=== PATIENT | female | born 1935 | race African-American/Black ===

== ENCOUNTER 2018-01-11 13:49 | Inpatient (IN) | payer OTHER, MEDICARE ==
[2018-01-11] VITALS (7 sets, daily range): BP systolic 123–157; BP diastolic 65–98; PULSE 83–100; RESP 18–20; TEMP 98.5–99.1; O2SAT 97–100
[~2018-01-11] VITALS: Ht 152.4 cm; Wt 74.9 kg
[~2018-01-11 13:49] MED LIST: CARV12.5 PO; DIAZ10 PO; FURO1TAB93 PO; LISI10TA PO; MIRA33502 PO; STOO100C PO
[2018-01-11] MEDS ORDERED: PRAV20TA2 PO (14:27)
[2018-01-11] MEDS ORDERED: CLON0.1T PO (14:27)
[2018-01-11] MEDS ORDERED: CARV12.52 PO (14:27)
[2018-01-11] MEDS ORDERED: FERR325T18 PO (14:27)
[2018-01-11] MEDS ORDERED: LISI40TA PO (14:27)
[2018-01-11] MEDS ORDERED: FURO40TA PO (14:27)
[2018-01-11] MEDS ORDERED: AMLO10TA2 PO (14:27)
[2018-01-11] MEDS ORDERED: SODIUM CHLORIDE 0.9% FLUSH 10 ML FLUSH IV FLUSH PRN ×2 (14:45→18:45)
[2018-01-11] MEDS ORDERED: SODIUM CHLORID 0.9% 500 ML INJ 500 ML IV ONE (14:45)
[2018-01-11] MEDS ORDERED: PANTOPRAZOLE INJ 80 MG in SODIUM CHLORIDE 0.9% INJ 35 ML IV ONE (14:45)
[2018-01-11 15:21] LABS: AUTOMATED NEUTROPHIL # 14.9 TH/MM3 (1.8-7.7); BASOPHIL % 0.2 % (0.0-2.0); EOSINOPHIL # 0.1 TH/MM3 (0-0.4); EOSINOPHIL % 0.4 % (0.0-4.0); HEMATOCRIT 24.9 % (35.0-46.0); HEMOGLOBIN 8.2 GM/DL (11.6-15.3); LYMPH % 12.4 % (9.0-44.0); LYMPHOCYTE # 2.3 TH/MM3 (1.0-4.8); MEAN CELL VOLUME 74.4 FL (80.0-100.0); MEAN CORPUSCULAR HEMOGLOBIN 24.6 PG (27.0-34.0); MEAN CORPUSCULAR HGB CONC 33.1 % (32.0-36.0); MEAN PLATELET VOLUME 8.1 FL (7.0-11.0); MONOCYTE # 1.1 TH/MM3 (0-0.9); PLATELET COUNT 411 TH/MM3 (150-450); RED BLOOD COUNT 3.34 MIL/MM3 (4.00-5.30); RED CELL DISTRIBUTION WIDTH 18.9 % (11.6-17.2); WHITE BLOOD COUNT 18.4 TH/MM3 (4.0-11.0)
[2018-01-11 15:33] LABS: ALBUMIN 2.1 GM/DL (3.4-5.0); AST (GOT) 18 U/L (15-37); BICARBONATE 18.5 MEQ/L (21.0-32.0); BLOOD UREA NITROGEN 115 MG/DL (7-18); CALCIUM 8.2 MG/DL (8.5-10.1); CHLORIDE 118 MEQ/L (98-107); CREATININE 4.24 MG/DL (0.50-1.00); GLOMERULAR FILTRATION RATE 10 ML/MIN (>89); GLUCOSE,RANDOM 116 MG/DL (74-106); SODIUM (NA) 149 MEQ/L (136-145)
[2018-01-11 15:36] LABS: ALKALINE PHOSPHATASE 75 U/L (45-117); ALT (GPT) 14 U/L (10-53); TOTAL BILIRUBIN ADULT 0.2 MG/DL (0.2-1.0); TOTAL PROTEIN 7.6 GM/DL (6.4-8.2)
[2018-01-11] MEDS ORDERED: SODIUM CHLOR 0.9% 1000 ML INJ 1,000 ML IV ONE (15:45)
[2018-01-11] MEDS: PANTOPRAZOLE INJ 80 MG in SODIUM CHLORIDE 0.9% INJ 100 ML IV SCH (15:58)
[2018-01-11 16:44] LABS: HELMET CELLS OCC (NORMAL); TARGET CELLS 1+ (NORMAL)
--- NOTE | 2018-01-11 16:44 | RADRPT ---
EXAM DATE/TIME: 01/11/2018 16:17 [facility] COMPARISON: No previous studies available for comparison. INDICATIONS : Shortness of breath and fever. MEDICAL HISTORY : None. SURGICAL HISTORY : None. ENCOUNTER: Initial ACUITY: 1 day PAIN SCORE: 0/10 LOCATION: Bilateral chest FINDINGS: No significant focal pleural or parenteral opacities. Cardiac silhouette is marginal in size. Likely tortuous thoracic aorta. Bony thorax is intact. CONCLUSION: 1. No acute cardiopulmonary disease. Shawn Gomez MD on January 11, 2018 at 16:41 Board Certified Radiologist. This report was verified electronically.
[2018-01-11 16:56] LABS: INTERNATIONAL NORMALIZED RATIO 1.1 RATIO
--- NOTE | 2018-01-11 17:35 | RADRPT ---
EXAM DATE/TIME: 01/11/2018 17:08 [facility] COMPARISON: No previous studies available for comparison. INDICATIONS : Abdominal pain, black stool and decreases appetite. ORAL CONTRAST: No oral contrast ingested. RADIATION DOSE: 11.03 CTDIvol (mGy) MEDICAL HISTORY : Cardiovascular disease. Congestive heart failure. Hypertension.Renal failure. SURGICAL HISTORY : None. ENCOUNTER: Initial ACUITY: 1 day PAIN SCALE: 6/10 LOCATION: TECHNIQUE: Volumetric scanning of the abdomen and pelvis was performed. Using automated exposure control and ad justment of the mA and/or kV according to patient size, radiation dose was kept as low as reasonably achievable to obtain optimal diagnostic quality images. DICOM format image data is available electro nically for review and comparison. FINDINGS: LOWER LUNGS: The visualized lower lungs are clear. LIVER: Homogeneous density without lesion. There is no dilation of the biliary tree. Gallbladder appears co ntracted and likely full of stones. SPLEEN: Normal size without lesion. PANCREAS: There is a large 8.4 x 6.3 cm septated cystic mass in the pancreatic head similar to remote prior CT report. There is no significant pancreatic tail atrophy or ductal dilatation. KIDNEYS: Severe bilateral hydronephrosis and hydroureter extending to the UV junction without definitive etiol ogy. No radiopaque renal calculi. 4.7 x 3.7 cm cyst in the posterior mid right kidney. Small subcenti meter cyst in the inferior pole of the left kidney. ADRENAL GLANDS: Within normal limits. VASCULAR: There is no aortic aneurysm. BOWEL/MESENTERY: Single loop of slightly prominent air-filled but the distal jejunum. Bowel loops are otherwise unrema rkable. Mild colonic diverticulosis. There is no free intraperitoneal air or fluid. ABDOMINAL WALL: Within normal limits. RETROPERITONEUM: There is no lymphadenopathy. BLADDER: Diffuse bladder wall thickening with moderate distention. REPRODUCTIVE: Within normal limits. INGUINAL: There is no lymphadenopathy or hernia. MUSCULOSKELETAL: Within normal limits for patient age. CONCLUSION: 1. Severe bilateral hydroureteronephrosis extending to the UV junction with moderately distended blad corie demonstrating moderate diffuse bladder wall thickening. Differential considerations include neuro genic bladder versus bladder outlet obstruction. 2. Large 8.4 x 6.3 cm septated cystic pancreatic head mass similar to remote prior CT examination rep orts. This has apparently been previously biopsied and evaluated. 3. Single slightly prominent air-filled loop of distal jejunum. This finding is nonspecific and may r eflect focal adynamic ileus. Shawn Gomez MD on January 11, 2018 at 17:25 Board Certified Radiologist. This report was verified electronically.
--- NOTE | 2018-01-11 18:18 | PD ---
HPI Chief Complaint: GI Complaint Time Seen by Provider: 14:14 Travel History International Travel<30 days: No Contact w/Intl Traveler<30days: No Traveled to known affect area: No History of Present Illness HPI Patient is an 82-year-old female brought in by her daughter 2 concerns that she is not eating and she is having diarrhea. Her daughter says she has been sick for the past 2 weeks, and she has had no appetite. She says recently she noticed that she started having diarrhea, that is black in color. Patient herself has no complaints. She says she is feeling thirsty. She is a poor historian. [facility] Past Medical History Arthritis: No Asthma: No Autoimmune Disease: No Blood Disorders: No Anxiety: No Depression: No Heart Rhythm Problems: No Cardiovascular Problems: Yes High Cholesterol: No Chemotherapy: No Chest Pain: No Congestive Heart Failure: Yes COPD: No Cerebrovascular Accident: No Diabetes: No Diminished Hearing: No Endocrine: No Gastrointestinal Disorders: Yes (DAUGHTER STATES CYST ON PANCREAS) GERD: No Glaucoma: No Genitourinary: Yes Headaches: No Hepatitis: No Hiatal Hernia: No Heparin Induced Thrombocytopen: No Hypertension: Yes Immune Disorder: No Kidney Stones: No Musculoskeletal: No Neurologic: No Psychiatric: No Reproductive: No Respiratory: No Migraines: No Myocardial Infarction: No Radiation Therapy: No Renal Failure: Yes Seizures: No Sickle Cell Disease: No Sleep Apnea: No Thyroid Disease: No Ulcer: No Tetanus Vaccination: Unknown Influenza Vaccination: No Past Surgical History Abdominal Surgery: No AICD: No Appendectomy: No Arteriovenous Shunt: No Cardiac Surgery: No Cholecystectomy: No Ear Surgery: No Endocrine Surgery: No Eye Surgery: No Genitourinary Surgery: No Gynecologic Surgery: No Insulin Pump: No Joint Replacement: No Oral Surgery: No Pacemaker: No Thoracic Surgery: No Other Surgery: Yes (PANCREAS AND BREAST BIOPSIES) Social History Alcohol Use: No Tobacco Use: No Substance Use: No Allergies-Medications (Allergen,Severity, Reaction): Coded Allergies: No Known Allergies (Verified Allergy, Unknown, 01/11/18) Reported Meds & Prescriptions Reported Meds & Active Scripts Active Reported Pravastatin 20 Mg Tab 20 Mg PO DAILY Carvedilol 12.5 Mg Tab 12.5 Mg PO BID Clonidine (Clonidine HCl) 0.1 Mg Tab 0.1 Mg PO TID Furosemide 40 Mg Tab 40 Mg PO DAILY Amlodipine (Amlodipine Besylate) 10 Mg Tab 10 Mg PO DAILY Ferrous Sulfate 325 Mg (65 Mg Iron) Tablet 325 Mg PO TIDPC Lisinopril 40 Mg Tab 40 Mg PO DAILY Review of Systems ROS Limitations: Altered Mental Status Physical Exam Narrative GENERAL: Awake and alert, no acute distress. SKIN: Focused skin assessment warm/dry. No wounds or signs of infection. HEAD: Atraumatic. Normocephalic. EYES: Pupils equal and round. No scleral icterus. Extraocular movements intact. ENT: Mucous membranes pink and moist. NECK: Trachea midline. No JVD. CARDIOVASCULAR: Regular rate and rhythm. No murmur appreciated. RESPIRATORY: No accessory muscle use. Clear to auscultation. Breath sounds equal bilaterally. GASTROINTESTINAL: Abdomen soft, non-tender, nondistended. RECTAL: Exam performed in the presence of a nurse. Dark stool, positive for occult blood. MUSCULOSKELETAL: No obvious deformities. No clubbing. No cyanosis. Edema bilateral lower extremities. NEUROLOGICAL: Awake and alert. No obvious cranial nerve deficits. Motor grossly within normal limits. Normal speech. PSYCHIATRIC: Appropriate mood and affect; insight and judgment normal. Data Data Last Documented VS Vital Signs Date Time Temp Pulse Resp B/P (MAP) Pulse Ox O2 Delivery O2 Flow Rate FiO2 01/11/18 18:10 87 19 148/65 (92) 99 Room Air 01/11/18 14:05 98.9 Orders Orders Complete Blood Count With Diff (01/11/18 14:31) Comprehensive Metabolic Panel (01/11/18 14:31) Lipase (01/11/18 14:31) Prothrombin Time / Inr (Pt) (01/11/18 14:31) Act Partial Throm Time (Ptt) (01/11/18 14:31) Urinalysis - C+S If Indicated (01/11/18 14:31) Iv Access Insert/Monitor (01/11/18 14:31) Ecg Monitoring (01/11/18 14:31) Oximetry (01/11/18 14:31) Sodium Chloride 0.9% Flush (Ns Flush) (01/11/18 14:45) Pantoprazole Inj (Protonix Inj) (01/11/18 14:45) Pantoprazole Inj (Protonix Inj) (01/11/18 14:45) Sodium Chlorid 0.9% 500 Ml Inj (Ns 500 M (01/11/18 14:45) Type And Screen (01/11/18 14:31) Ct Abd/Pel W/O Iv Contrast (01/11/18 ) Sodium Chlor 0.9% 1000 Ml Inj (Ns 1000 M (01/11/18 15:45) Chest, Single Ap (01/11/18 ) Admit Order (Ed Use Only) (01/11/18 ) Labs Laboratory Tests Test 01/11/18 14:50 01/11/18 16:35 01/11/18 17:51 White Blood Count 18.4 TH/MM3 Red Blood Count 3.34 MIL/MM3 Hemoglobin 8.2 GM/DL Hematocrit 24.9 % Mean Corpuscular Volume 74.4 FL Mean Corpuscular Hemoglobin 24.6 PG Mean Corpuscular Hemoglobin Concent 33.1 % Red Cell Distribution Width 18.9 % Platelet Count 411 TH/MM3 Mean Platelet Volume 8.1 FL Neutrophils (%) (Auto) 81.0 % Lymphocytes (%) (Auto) 12.4 % Monocytes (%) (Auto) 6.0 % Eosinophils (%) (Auto) 0.4 % Basophils (%) (Auto) 0.2 % Neutrophils # (Auto) 14.9 TH/MM3 Lymphocytes # (Auto) 2.3 TH/MM3 Monocytes # (Auto) 1.1 TH/MM3 Eosinophils # (Auto) 0.1 TH/MM3 Basophils # (Auto) 0.0 TH/MM3 CBC Comment AUTO DIFF Differential Comment AUTO DIFF CONFIRMED Platelet Estimate NORMAL Platelet Morphology Comment NORMAL Target Cells 1+ Helmet Cells OCC Blood Urea Nitrogen 115 MG/DL Creatinine 4.24 MG/DL Random Glucose 116 MG/DL Total Protein 7.6 GM/DL Albumin 2.1 GM/DL Calcium Level 8.2 MG/DL Alkaline Phosphatase 75 U/L Aspartate Amino Transf (AST/SGOT) 18 U/L Alanine Aminotransferase (ALT/SGPT) 14 U/L Total Bilirubin 0.2 MG/DL Sodium Level 149 MEQ/L Potassium Level 4.8 MEQ/L Chloride Level 118 MEQ/L Carbon Dioxide Level 18.5 MEQ/L Anion Gap 13 MEQ/L Estimat Glomerular Filtration Rate 10 ML/MIN Lipase 103 U/L Prothrombin Time 11.0 SEC Prothromb Time International Ratio 1.1 RATIO Activated Partial Thromboplast Time 22.0 SEC Urine Color LIGHT-YELLOW Urine Turbidity HAZY Urine pH 7.5 Urine Specific [place] 1.013 Urine Protein 100 mg/dL Urine Glucose (UA) NEG mg/dL Urine Ketones NEG mg/dL Urine Occult Blood MOD Urine Nitrite NEG Urine Bilirubin NEG Urine Urobilinogen LESS THAN 2.0 MG/DL Urine Leukocyte Esterase LARGE Urine RBC 2 /hpf Urine WBC 164 /hpf Urine WBC Clumps FEW Urine Squamous Epithelial Cells 5 /hpf Urine Bacteria MANY /hpf Microscopic Urinalysis Comment CULTURE INDICATED MDM Medical Decision Making Medical Screen Exam Complete: Yes Emergency Medical Condition: Yes Medical Record Reviewed: Yes Differential Diagnosis GI bleed versus dehydration versus intra-abdominal pathology Narrative Course Patient is an 82-year-old female who comes in due to concerns for black stool and dehydration. Exam shows stools positive for occult blood. IV established, labs sent. Labs concerning for severe dehydration with acute kidney injury. White blood cell count is elevated. Chest x-ray shows no acute abnormalities. CT abdomen and pelvis concerning for bilateral hydronephrosis Last 24 hours Impressions Chest X-Ray 01/11/18 0000 Signed Impressions: Service Date/Time: Thursday, January 11, 2018 16:17 - CONCLUSION: 1. No acute cardiopulmonary disease. Shawn Gomez MD Abdomen/Pelvis CT 01/11/18 0000 Signed Impressions: Service Date/Time: Thursday, January 11, 2018 17:08 - CONCLUSION: 1. Severe bilateral hydroureteronephrosis extending to the UV junction with moderately distended bladder demonstrating moderate diffuse bladder wall thickening. Differential considerations include neurogenic bladder versus bladder outlet obstruction. 2. 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 This has apparently been previously biopsied and evaluated. 3. Single slightly prominent air-filled loop of distal jejunum. This finding is nonspecific and may reflect focal adynamic ileus. Shawn Gomez MD Patient given IV fluids. Given Protonix. Admitted for further management. Diagnosis Primary Impression: ABIOLA (acute kidney injury) Additional Impressions: GI bleed Qualified Codes: K92.2 - Gastrointestinal hemorrhage, unspecified UTI (urinary tract infection) Qualified Codes: N30.00 - Acute cystitis without hematuria Admitting Information Admitting Physician Requests: Admit Flora Goyal MD January 11, 2018 18:18
--- NOTE | 2018-01-11 18:19 | HHI.HP ---
H[facility] Annalise Slaughter M.D. Diagnoses: (1) Black stool Diagnosis: Principal (2) Diarrhea (3) Back pain (4) Poor appetite (5) ABIOLA (acute kidney injury) Diagnosis: Principal (6) Anemia Diagnosis: Principal (7) UTI (urinary tract infection) Chief Complaint: "I was not feeling good" Travel History International Travel<30 Days: No Contact w/Intl Traveler <30 Da: No Traveled to Known Affected Are: No Sepsis Criteria SIRS Criteria (2 or more): Heart rate over 90, WBC > 44544, < 4000 or > 10% bands Sepsis Criteria (SIRS+source): Infect source susp/known Criteria Outcome: Meets sepsis criteria History of Present Illness Written by Florencia Mayers, acting as scribe for Dr. Khan on 01/11/18 at 18: 12. 82-year-old female with PMH of borderline DM, HTN, PVD, CAD, and pancreatic tumors who presents to the ER accompanied by daughter and stepdaughter with complaints of "not feeling good". Patient currently lives with son and daughters who are at bedside reports that for the past 2 weeks patient's appetite has decreased and she has not been eating hardly anything. Patient is also been noted to have some nausea but no vomiting. Daughters report diarrhea and black stool. Denies abdominal pain, SOB, or cough. Patient does complain of back pain no reported dysuria. Daughter also states that patient has not taken her antihypertensive for the past week. She has been living with son and ambulates with a walker. Patient has history of peripheral vascular disease with on and off swelling of bilateral lower extremities but has refused treatment in the past per daughter's. Review of Systems Except as stated in HPI: all other systems reviewed are Neg Past Family Social History Past Medical History borderline DM HTN PVD CAD Hx pancreatic tumors, were told these were normal Past Surgical History Denies past surgical history other than pancreatic biopsies. Reported Medications Reported Meds & Active Scripts Active Reported Pravastatin 20 Mg Tab 20 Mg PO DAILY Carvedilol 12.5 Mg Tab 12.5 Mg PO BID Clonidine (Clonidine HCl) 0.1 Mg Tab 0.1 Mg PO TID Furosemide 40 Mg Tab 40 Mg PO DAILY Amlodipine (Amlodipine Besylate) 10 Mg Tab 10 Mg PO DAILY Ferrous Sulfate 325 Mg (65 Mg Iron) Tablet 325 Mg PO TIDPC Lisinopril 40 Mg Tab 40 Mg PO DAILY Allergies: Coded Allergies: No Known Allergies (Verified Adverse Reaction, Unknown, 01/11/18) Family History PFH: DM, HTN Social History Tobacco: denies Alcohol:denies Illicit drug use: denies Ambulates with a walker, lives with son. Physical Exam Vital Signs Vital Signs Date Time Temp Pulse Resp B/P (MAP) Pulse Ox O2 Delivery O2 Flow Rate FiO2 01/11/18 14:17 19 01/11/18 14:05 98.9 100 18 157/67 (97) 100 Physical Exam GENERAL: This is a well-nourished, well-developed patient, -French female no acute distress. SKIN: No rashes, ecchymoses or lesions. Bilateral lower extremity PVD leg discoloration. Cool and dry. HEAD: Atraumatic. Normocephalic. No temporal or scalp tenderness. EYES: Pupils equal round and reactive. Extraocular motions intact. No scleral icterus. No injection or drainage. ENT: Nose without bleeding, purulent drainage or septal hematoma. Throat without erythema. Uvula midline. Airway patent. NECK: Trachea midline. No JVD or lymphadenopathy. Supple, nontender, no meningeal signs. CARDIOVASCULAR: Regular rate and rhythm without murmurs, gallops, or rubs. RESPIRATORY: Clear to auscultation. Breath sounds equal bilaterally. No wheezes , rales, or rhonchi. GASTROINTESTINAL: Abdomen soft, non-tender, nondistended. No hepato-splenomegaly , or palpable masses. No guarding. MUSCULOSKELETAL: Extremities without clubbing, or cyanosis. No joint tenderness , effusion, or edema noted. No calf tenderness. Bilateral lower extremities with trace edema. NEUROLOGICAL: Awake and alert. Cranial nerves II through XII intact. Motor and sensory grossly within normal limits. Five out of 5 muscle strength in all muscle groups. Normal speech. Laboratory Laboratory Tests Test 01/11/18 14:50 01/11/18 16:35 01/11/18 17:51 White Blood Count 18.4 Red Blood Count 3.34 Hemoglobin 8.2 Hematocrit 24.9 Mean Corpuscular Volume 74.4 Mean Corpuscular Hemoglobin 24.6 Mean Corpuscular Hemoglobin Concent 33.1 Red Cell Distribution Width 18.9 Platelet Count 411 Mean Platelet Volume 8.1 Neutrophils (%) (Auto) 81.0 Lymphocytes (%) (Auto) 12.4 Monocytes (%) (Auto) 6.0 Eosinophils (%) (Auto) 0.4 Basophils (%) (Auto) 0.2 Neutrophils # (Auto) 14.9 Lymphocytes # (Auto) 2.3 Monocytes # (Auto) 1.1 Eosinophils # (Auto) 0.1 Basophils # (Auto) 0.0 CBC Comment AUTO DIFF Differential Comment AUTO DIFF CONFIRMED Platelet Estimate NORMAL Platelet Morphology Comment NORMAL Target Cells 1+ Helmet Cells OCC Blood Urea Nitrogen 115 Creatinine 4.24 Random Glucose 116 Total Protein 7.6 Albumin 2.1 Calcium Level 8.2 Alkaline Phosphatase 75 Aspartate Amino Transf (AST/SGOT) 18 Alanine Aminotransferase (ALT/SGPT) 14 Total Bilirubin 0.2 Sodium Level 149 Potassium Level 4.8 Chloride Level 118 Carbon Dioxide Level 18.5 Anion Gap 13 Estimat Glomerular Filtration Rate 10 Lipase 103 Prothrombin Time 11.0 Prothromb Time International Ratio 1.1 Activated Partial Thromboplast Time 22.0 Result Diagram: 01/11/18 1450 01/11/18 1450 Imaging Last Impressions Chest X-Ray 01/11/18 0000 Signed Impressions: Service Date/Time: Thursday, January 11, 2018 16:17 - CONCLUSION: 1. No acute cardiopulmonary disease. Shawn Gomez MD Abdomen/Pelvis CT 01/11/18 0000 Signed Impressions: Service Date/Time: Thursday, January 11, 2018 17:08 - CONCLUSION: 1. Severe bilateral hydroureteronephrosis extending to the UV junction with moderately distended bladder demonstrating moderate diffuse bladder wall thickening. Differential considerations include neurogenic bladder versus bladder outlet obstruction. 2. 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 This has apparently been previously biopsied and evaluated. 3. Single slightly prominent air-filled loop of distal jejunum. This finding is nonspecific and may reflect focal adynamic ileus. MD Ji Renner VTE Risk Assessment Caprini VTE Risk Assessment: Mod/High Risk (score >= 2) Caprini Risk Assessment Model Point Value = 1 Point Value = 2 Point Value = 3 Point Value = 5 Age 41-60 Minor surgery BMI > 25 kg/m2 Swollen legs Varicose veins or History of unexplained or recurrent spontaneous Oral contraceptives or hormone replacement Sepsis (< 1 month) Serious lung disease, including pneumonia (< 1 month) Abnormal pulmonary function Acute myocardial infarction Congestive heart failure (< 1 month) History of inflammatory bowel disease Medical patient at bed rest Age 61-74 Arthroscopic surgery Major open surgery (> 45 min) Laparoscopic surgery (> 45 min) Malignancy Confined to bed (> 72 hours) Immobilizing plaster cast Central venous access Age >= 75 History of VTE Family history of VTE Factor V Leiden Prothrombin [id number] Lupus anticoagulant Anticardiolipin antibodies Elevated serum homocysteine Heparin-induced thrombocytopenia Other congenital or acquired thrombophilia Stroke (< 1 month) Elective arthroplasty Hip, pelvis, or leg fracture Acute spinal cord injury (< 1 month) Prophylaxis Regimen Total Risk Factor Score Risk Level Prophylaxis Regimen 0-1 Low Early ambulation 2 Moderate Order ONE of the following: *Sequential Compression Device (SCD) *Heparin 5000 units SQ BID 3-4 Higher Order ONE of the following medications: *Heparin 5000 units SQ TID *Enoxaparin/Lovenox 40 mg SQ daily (WT < 150 kg, CrCl > 30 mL/min) *Enoxaparin/Lovenox 30 mg SQ daily (WT < 150 kg, CrCl > 10-29 mL/min) *Enoxaparin/Lovenox 30 mg SQ BID (WT < 150 kg, CrCl > 30 mL/min) AND/OR *Sequential Compression Device (SCD) 5 or more Highest Order ONE of the following medications: *Heparin 5000 units SQ TID (Preferred with Epidurals) *Enoxaparin/Lovenox 40 mg SQ daily (WT < 150 kg, CrCl > 30 mL/min) *Enoxaparin/Lovenox 30 mg SQ daily (WT < 150 kg, CrCl > 10-29 mL/min) *Enoxaparin/Lovenox 30 mg SQ BID (WT < 150 kg, CrCl > 30 mL/min) AND *Sequential Compression Device (SCD) Assessment and Plan Assessment and Plan 82-year-old female with PMH of borderline DM, HTN, PVD, CAD, and pancreatic tumors who presents to the ER accompanied by daughter and stepdaughter with complaints of "not feeling good". Urosepsis-UTI with hydronephrosis -Complaints of back pain, WBC count 18.4 with left shift, heart rate >90 on admission -CT of abdomen and pelvis personally reviewed, severe bilateral hydronephrosis extending to UV junction with moderately distended bladder demonstrating moderate diffuse bladder wall thickening. -Insert Crowe catheter. Consult urology for further recommendations. -Check blood cultures 2, check lactic acid, start ceftriaxone 1 g every 24 hours -UA positive for occult blood, leukocyte esterase, WBC clumps. Continue following culture and sensitivity and adjust antibiotics accordingly -Follow CBC in the a.m. ABIOLA-likely secondary to dehydration Metabolic acidosis secondary to ABIOLA Hypernatremia -Poor p.o. intake for the past 2 weeks with ongoing diarrhea -IV hydration with 1/2 NS w/bicarb at 42ml/hr -Consult nephrology services for further recommendations. -Monitor electrolytes Black stools/diarrhea Anemia -Hemoccult in the ED positive. H&H on admission 8.2/24.9 -Continue trending H&H and transfuse as needed - consult GI services for further recommendations HTN, BP elevated HLD -Continue amlodipine 10 mg daily and Coreg 12.5 mg twice daily -Continue pravastatin 20 mg daily DVT prophylaxis- SCD's no chemical prophylaxis secondary to suspected GIB Discussed Condition With Daughter, stepdaughter, ED physician. Physician Certification 2 Midnight Certification Type: Admission for Inpatient Services Order for Inpatient Services The services are ordered in accordance with Medicare regulations or non- Medicare payer requirements, as applicable. In the case of services not specified as inpatient-only, they are appropriately provided as inpatient services in accordance with the 2-midnight benchmark. Estimated LOS (days): 3 days is the estimated time the patient will need to remain in the hospital, assuming treatment plan goals are met and no additional complications. Post-Hospital Plan: Not yet determined Florencia Mayers January 11, 2018 18:19
[2018-01-11 18:20] LABS: BACTERIA, URINE MANY /hpf; BILIRUBIN, URINE NEG (NEG); BLOOD, URINE MOD (NEG); GLUCOSE,URINE NEG (NEG); KETONE, URINE NEG (NEG); NITRITE,URINE NEG (NEG); PH, URINE 7.5 (5.0-8.5); SQUAMOUS EPITHELIAL CELL URINE 5 /hpf (0-5); URINE COLOR LIGHT-YELLOW (YELLW/STRAW); URINE LEUKOCYTE ESTERASE LARGE (NEG); WHITE BLOOD CELL CLUMPS FEW
[2018-01-11] MEDS ORDERED: ACETAMINOPHEN 325 MG TAB PO PRN (18:45)
[2018-01-11] MEDS ORDERED: NALOXONE HCL 0.4 MG/ML AMP IV PUSH PRN (18:45)
[2018-01-11] MEDS: cefTRIAXone INJ 1,000 MG in SODIUM CHLORIDE 0.9% INJ 100 ML IV SCH (20:20)
[2018-01-11 20:47] LABS: HEMATOCRIT 22.6 % (35.0-46.0); HEMOGLOBIN 7.4 GM/DL (11.6-15.3); MEAN CELL VOLUME 73.2 FL (80.0-100.0); MEAN CORPUSCULAR HEMOGLOBIN 23.9 PG (27.0-34.0); MEAN CORPUSCULAR HGB CONC 32.6 % (32.0-36.0); MEAN PLATELET VOLUME 7.8 FL (7.0-11.0); PLATELET COUNT 430 TH/MM3 (150-450); RED BLOOD COUNT 3.09 MIL/MM3 (4.00-5.30); RED CELL DISTRIBUTION WIDTH 18.8 % (11.6-17.2); WHITE BLOOD COUNT 18.3 TH/MM3 (4.0-11.0)
[2018-01-11] MEDS: DOCUSATE SODIUM 50 MG/SENNA 8.6 MG TAB PO SCH (21:00)
[2018-01-11] MEDS: CARVEDILOL 12.5 MG TAB PO SCH (21:00)
[2018-01-11] MEDS: SODIUM CHLORIDE 0.9% FLUSH 10 ML FLUSH IV FLUSH SCH (21:39)
[2018-01-11] MEDS: SODIUM BICARBONATE 8.4% INJ 75 MEQ in SODIUM CHLOR 0.45% 1000 ML INJ 1,000 ML IV SCH (22:13)
[2018-01-12] VITALS (11 sets, daily range): BP systolic 105–180; BP diastolic 50–81; PULSE 55–95; RESP 16–19; TEMP 97.3–98.7; O2SAT 94–100
[2018-01-12] MEDS: PANTOPRAZOLE INJ 80 MG in SODIUM CHLORIDE 0.9% INJ 100 ML IV SCH ×3 (04:24→23:58)
[2018-01-12 04:44] LABS: AUTOMATED NEUTROPHIL # 14.5 TH/MM3 (1.8-7.7); BASOPHIL % 0.2 % (0.0-2.0); EOSINOPHIL # 0.2 TH/MM3 (0-0.4); EOSINOPHIL % 1.1 % (0.0-4.0); LYMPH % 10.3 % (9.0-44.0); LYMPHOCYTE # 1.8 TH/MM3 (1.0-4.8); MEAN CORPUSCULAR HEMOGLOBIN 24.5 PG (27.0-34.0); MEAN CORPUSCULAR HGB CONC 32.7 % (32.0-36.0); MEAN PLATELET VOLUME 7.9 FL (7.0-11.0); MONO % 6.7 % (0.0-8.0); MONOCYTE # 1.2 TH/MM3 (0-0.9); NEUT % 81.7 % (16.0-70.0); PLATELET COUNT 383 TH/MM3 (150-450); RED BLOOD COUNT 2.76 MIL/MM3 (4.00-5.30); RED CELL DISTRIBUTION WIDTH 18.2 % (11.6-17.2); WHITE BLOOD COUNT 17.7 TH/MM3 (4.0-11.0)
[2018-01-12 04:46] LABS: HEMOGLOBIN 6.8 GM/DL (11.6-15.3)
[2018-01-12 04:47] LABS: HEMATOCRIT 20.7 % (35.0-46.0)
[2018-01-12] MEDS ORDERED: SODIUM CHLOR 0.9% 250 ML INJ 250 ML IV ONE (05:00)
[2018-01-12] MEDS: FUROSEMIDE 20 MG/2 ML VIAL IV PUSH ONE ×2 (05:00→17:16)
[2018-01-12 05:12] LABS: ALT (GPT) 13 U/L (10-53); AST (GOT) 19 U/L (15-37); BICARBONATE 20.2 MEQ/L (21.0-32.0); BLOOD UREA NITROGEN 106 MG/DL (7-18); CALCIUM 7.7 MG/DL (8.5-10.1); CHLORIDE 122 MEQ/L (98-107); CREATININE 3.91 MG/DL (0.50-1.00); GLOMERULAR FILTRATION RATE 13 ML/MIN (>89); GLUCOSE,RANDOM 111 MG/DL (74-106); SODIUM (NA) 153 MEQ/L (136-145)
[2018-01-12 05:14] LABS: ALKALINE PHOSPHATASE 67 U/L (45-117); TOTAL BILIRUBIN ADULT 0.2 MG/DL (0.2-1.0); TOTAL PROTEIN 6.9 GM/DL (6.4-8.2)
[2018-01-12] MEDS: CARVEDILOL 12.5 MG TAB PO SCH ×2 (08:17→19:59)
[2018-01-12] MEDS: PRAVASTATIN SOD 20 MG TAB PO SCH (08:17)
[2018-01-12] MEDS: DOCUSATE SODIUM 50 MG/SENNA 8.6 MG TAB PO SCH ×2 (08:17→19:59)
[2018-01-12] MEDS: SODIUM CHLORIDE 0.9% FLUSH 10 ML FLUSH IV FLUSH SCH ×2 (08:18→19:59)
--- NOTE | 2018-01-12 09:54 | PD.CONS ---
HPI Service Urology Consult Requested By Dr. Mcnally Reason for Consult Bilateral hydronephrosis with bladder wall thickening Primary Care Physician Annalise Slaughter M.D. Diagnosis: (1) Black stool ICD Code: K92.1 - Melena (2) Diarrhea ICD Code: R19.7 - Diarrhea, unspecified (3) Back pain ICD Code: M54.9 - Dorsalgia, unspecified (4) Poor appetite ICD Code: R63.0 - Anorexia (5) ABIOLA (acute kidney injury) ICD Code: N17.9 - Acute kidney failure, unspecified (6) Anemia ICD Code: D64.9 - Anemia, unspecified (7) UTI (urinary tract infection) ICD Code: N39.0 - Urinary tract infection, site not specified History of Present Illness 82-year-old female with multiple medical problems who was admitted for generalized malaise. During the course of her hospitalization a CT scan of the abdomen and pelvis was performed which demonstrated bilateral hydroureteronephrosis with a distended urinary bladder along with bladder wall thickening. Serum creatinine was elevated at 3.91 and urinalysis consistent with urinary tract infection. Patient has been started on antibiotic therapy and a urology consult was placed. Patient is a very poor historian and I was unable to elicit any additional history from her. Review of Systems ROS Limitations: Poor Historian Except as stated in HPI: all other systems reviewed are Neg Past Family Social History Past Medical History Diabetes mellitus Hypertension Peripheral vascular disease Coronary artery disease Benign pancreatic tumors Past Surgical History Status post pancreatic biopsies Reported Medications Refer to EMR Allergies: Coded Allergies: No Known Allergies (Verified Allergy, Unknown, 01/11/18) Active Ordered Medications Refer to EMR Family History Diabetes mellitus Hypertension Social History No history tobacco, alcohol or intravenous drug abuse Physical Exam Vital Signs Date Time Temp Pulse Resp B/P (MAP) Pulse Ox O2 Delivery O2 Flow Rate FiO2 01/12/18 08:20 98.5 95 17 154/74 (100) 100 01/12/18 07:53 Room Air 01/12/18 03:39 98.7 92 19 147/63 (91) 99 01/12/18 03:35 89 01/11/18 23:57 96 01/11/18 23:48 98.5 85 18 149/70 (96) 97 01/11/18 22:05 Room Air 01/11/18 21:41 93 01/11/18 21:32 99.1 94 19 123/69 (87) 99 01/11/18 21:07 01/11/18 19:18 83 20 155/98 (117) 100 Room Air 01/11/18 18:10 87 19 148/65 (92) 99 Room Air 01/11/18 18:10 87 19 148/65 (92) 99 Room Air 01/11/18 14:17 19 01/11/18 14:05 98.9 100 18 157/67 (97) 100 Physical Exam GENERAL: Appears stated age and in no apparent distress. SKIN: No rashes, ecchymoses or lesions. Cool and dry. HEAD: Atraumatic. Normocephalic. No temporal or scalp tenderness. EYES: Pupils equal round and reactive. Extraocular motions intact. No scleral icterus. No injection or drainage. ENT: Nose without bleeding, purulent drainage or septal hematoma. Throat without erythema, tonsillar hypertrophy or exudate. Uvula midline. Airway patent. NECK: Trachea midline. No JVD or lymphadenopathy. Supple, nontender, no meningeal signs. GASTROINTESTINAL: Abdomen soft, non-tender, nondistended. No hepato-splenomegaly , or palpable masses. No guarding. GENITOURINARY: Bladder distended, no CVA tenderness MUSCULOSKELETAL: Extremities without clubbing, cyanosis, or edema. No joint tenderness, effusion, or edema noted. No calf tenderness. Negative Homans sign bilaterally. NEUROLOGICAL: Awake and alert. Cranial nerves II through XII intact. Motor and sensory grossly within normal limits. Five out of 5 muscle strength in all muscle groups. Normal speech. Lab results reviewed: Yes Laboratory Tests Test 01/11/18 14:50 01/11/18 16:35 01/11/18 17:51 01/11/18 20:05 White Blood Count 18.4 18.3 Red Blood Count 3.34 3.09 Hemoglobin 8.2 7.4 Hematocrit 24.9 22.6 Mean Corpuscular Volume 74.4 73.2 Mean Corpuscular Hemoglobin 24.6 23.9 Mean Corpuscular Hemoglobin Concent 33.1 32.6 Red Cell Distribution Width 18.9 18.8 Platelet Count 411 430 Mean Platelet Volume 8.1 7.8 Neutrophils (%) (Auto) 81.0 Lymphocytes (%) (Auto) 12.4 Monocytes (%) (Auto) 6.0 Eosinophils (%) (Auto) 0.4 Basophils (%) (Auto) 0.2 Neutrophils # (Auto) 14.9 Lymphocytes # (Auto) 2.3 Monocytes # (Auto) 1.1 Eosinophils # (Auto) 0.1 Basophils # (Auto) 0.0 CBC Comment AUTO DIFF Differential Comment AUTO DIFF CONFIRMED Platelet Estimate NORMAL Platelet Morphology Comment NORMAL Target Cells 1+ Helmet Cells OCC Blood Urea Nitrogen 115 Creatinine 4.24 Random Glucose 116 Total Protein 7.6 Albumin 2.1 Calcium Level 8.2 Alkaline Phosphatase 75 Aspartate Amino Transf (AST/SGOT) 18 Alanine Aminotransferase (ALT/SGPT) 14 Total Bilirubin 0.2 Sodium Level 149 Potassium Level 4.8 Chloride Level 118 Carbon Dioxide Level 18.5 Anion Gap 13 Estimat Glomerular Filtration Rate 10 Lipase 103 Prothrombin Time 11.0 Prothromb Time International Ratio 1.1 Activated Partial Thromboplast Time 22.0 Urine Color LIGHT-YELLOW Urine Turbidity HAZY Urine pH 7.5 Urine Specific [place] 1.013 Urine Protein 100 Urine Glucose (UA) NEG Urine Ketones NEG Urine Occult Blood MOD Urine Nitrite NEG Urine Bilirubin NEG Urine Urobilinogen LESS THAN 2.0 Urine Leukocyte Esterase LARGE Urine RBC 2 Urine WBC 164 Urine WBC Clumps FEW Urine Squamous Epithelial Cells 5 Urine Bacteria MANY Microscopic Urinalysis Comment CULTURE INDICATED Lactic Acid Level 2.0 Test 01/12/18 04:04 White Blood Count 17.7 Red Blood Count 2.76 Hemoglobin 6.8 Hematocrit 20.7 Mean Corpuscular Volume 75.0 Mean Corpuscular Hemoglobin 24.5 Mean Corpuscular Hemoglobin Concent 32.7 Red Cell Distribution Width 18.2 Platelet Count 383 Mean Platelet Volume 7.9 Neutrophils (%) (Auto) 81.7 Lymphocytes (%) (Auto) 10.3 Monocytes (%) (Auto) 6.7 Eosinophils (%) (Auto) 1.1 Basophils (%) (Auto) 0.2 Neutrophils # (Auto) 14.5 Lymphocytes # (Auto) 1.8 Monocytes # (Auto) 1.2 Eosinophils # (Auto) 0.2 Basophils # (Auto) 0.0 CBC Comment DIFF FINAL Differential Comment Blood Urea Nitrogen 106 Creatinine 3.91 Random Glucose 111 Total Protein 6.9 Albumin 2.0 Calcium Level 7.7 Alkaline Phosphatase 67 Aspartate Amino Transf (AST/SGOT) 19 Alanine Aminotransferase (ALT/SGPT) 13 Total Bilirubin 0.2 Sodium Level 153 Potassium Level 4.5 Chloride Level 122 Carbon Dioxide Level 20.2 Anion Gap 11 Estimat Glomerular Filtration Rate 13 Date/Time Source Procedure Growth Status 01/11/18 20:08 Blood Peripheral Aerobic Blood Culture Pending Received 01/11/18 20:08 Blood Peripheral Anaerobic Blood Culture Pending Received 01/11/18 17:51 Urine Random Urine Urine Culture Pending Received Result Diagram: 01/12/18 0404 01/12/18 0404 Personally reviewed images: Yes Imaging Last Impressions Chest X-Ray 01/11/18 0000 Signed Impressions: Service Date/Time: Thursday, January 11, 2018 16:17 - CONCLUSION: 1. No acute cardiopulmonary disease. Shawn Gomez MD Abdomen/Pelvis CT 01/11/18 0000 Signed Impressions: Service Date/Time: Thursday, January 11, 2018 17:08 - CONCLUSION: 1. Severe bilateral hydroureteronephrosis extending to the UV junction with moderately distended bladder demonstrating moderate diffuse bladder wall thickening. Differential considerations include neurogenic bladder versus bladder outlet obstruction. 2. 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 This has apparently been previously biopsied and evaluated. 3. Single slightly prominent air-filled loop of distal jejunum. This finding is nonspecific and may reflect focal adynamic ileus. Shawn Gomez MD Assessment and Plan Assessment and Plan Urologic impression: 1. Bilateral hydroureteronephrosis secondary to urinary retention 2. Urinary retention/ Bladder wall thickening of indeterminate etiology 3. Urinary tract infection related to incomplete bladder emptying Recommendations: 1. Agree with Crowe catheter placement 2. Agree with present antibiotic therapy 3. We will further workup as an outpatient with cystoscopy and urodynamics 4. Will be available as needed during present hospitalization Problem Qualifiers (1) UTI (urinary tract infection): Qualified Codes: N30.00 - Acute cystitis without hematuria Izaiah Fair MD January 12, 2018 09:54
--- NOTE | 2018-01-12 10:51 | HHI.PR ---
Subjective Remarks 82-year-old female with PMH of borderline DM, HTN, PVD, CAD, and pancreatic tumors who presents to the ER accompanied by daughter and stepdaughter with complaints of "not feeling good". Patient currently lives with son and daughters who are at bedside reports that for the past 2 weeks patient's appetite has decreased and she has not been eating hardly anything. Patient is also been noted to have some nausea but no vomiting. Daughters report diarrhea and black stool. Denies abdominal pain, SOB, or cough. Patient does complain of back pain no reported dysuria. Daughter also states that patient has not taken her antihypertensive for the past week. She has been living with son and ambulates with a walker. Patient has history of peripheral vascular disease with on and off swelling of bilateral lower extremities but has refused treatment in the past per daughter's. 01-12 patient states it is that she has been seen by urologist. There is a urology note in the chart she cannot tell me much more other than No current complaints No shortness of breath no chest pain no nausea or vomiting Discussed with patient and RN and case management Await GI and nephrology evaluation Objective Vitals Vital Signs Date Time Temp Pulse Resp B/P (MAP) Pulse Ox O2 Delivery O2 Flow Rate FiO2 01/12/18 08:20 98.5 95 17 154/74 (100) 100 01/12/18 07:53 Room Air 01/12/18 03:39 98.7 92 19 147/63 (91) 99 01/12/18 03:35 89 01/11/18 23:57 96 01/11/18 23:48 98.5 85 18 149/70 (96) 97 01/11/18 22:05 Room Air 01/11/18 21:41 93 01/11/18 21:32 99.1 94 19 123/69 (87) 99 01/11/18 21:07 01/11/18 19:18 83 20 155/98 (117) 100 Room Air 01/11/18 18:10 87 19 148/65 (92) 99 Room Air 01/11/18 18:10 87 19 148/65 (92) 99 Room Air 01/11/18 14:17 19 01/11/18 14:05 98.9 100 18 157/67 (97) 100 I/O 5/20/18 5/20/18 01/11/18 01/12/18 01/12/18 01/12/18 07:00 15:00 23:00 07:00 15:00 23:00 Intake Total 460 ml Balance 460 ml Intake Oral 360 ml IV Total 100 ml # Voids 2 5 # Bowel Movements 1 0 Result Diagram: 01/12/18 0404 01/12/184 Other Results Laboratory Tests Test 01/11/18 14:50 01/11/18 16:35 01/11/18 17:51 01/11/18 20:05 White Blood Count 18.4 TH/MM3 18.3 TH/MM3 Red Blood Count 3.34 MIL/MM3 3.09 MIL/MM3 Hemoglobin 8.2 GM/DL 7.4 GM/DL Hematocrit 24.9 % 22.6 % Mean Corpuscular Volume 74.4 FL 73.2 FL Mean Corpuscular Hemoglobin 24.6 PG 23.9 PG Mean Corpuscular Hemoglobin Concent 33.1 % 32.6 % Red Cell Distribution Width 18.9 % 18.8 % Platelet Count 411 TH/MM3 430 TH/MM3 Mean Platelet Volume 8.1 FL 7.8 FL Neutrophils (%) (Auto) 81.0 % Lymphocytes (%) (Auto) 12.4 % Monocytes (%) (Auto) 6.0 % Eosinophils (%) (Auto) 0.4 % Basophils (%) (Auto) 0.2 % Neutrophils # (Auto) 14.9 TH/MM3 Lymphocytes # (Auto) 2.3 TH/MM3 Monocytes # (Auto) 1.1 TH/MM3 Eosinophils # (Auto) 0.1 TH/MM3 Basophils # (Auto) 0.0 TH/MM3 CBC Comment AUTO DIFF Differential Comment AUTO DIFF CONFIRMED Platelet Estimate NORMAL Platelet Morphology Comment NORMAL Target Cells 1+ Helmet Cells OCC Blood Urea Nitrogen 115 MG/DL Creatinine 4.24 MG/DL Random Glucose 116 MG/DL Total Protein 7.6 GM/DL Albumin 2.1 GM/DL Calcium Level 8.2 MG/DL Alkaline Phosphatase 75 U/L Aspartate Amino Transf (AST/SGOT) 18 U/L Alanine Aminotransferase (ALT/SGPT) 14 U/L Total Bilirubin 0.2 MG/DL Sodium Level 149 MEQ/L Potassium Level 4.8 MEQ/L Chloride Level 118 MEQ/L Carbon Dioxide Level 18.5 MEQ/L Anion Gap 13 MEQ/L Estimat Glomerular Filtration Rate 10 ML/MIN Lipase 103 U/L Prothrombin Time 11.0 SEC Prothromb Time International Ratio 1.1 RATIO Activated Partial Thromboplast Time 22.0 SEC Urine Color LIGHT-YELLOW Urine Turbidity HAZY Urine pH 7.5 Urine Specific [place] 1.013 Urine Protein 100 mg/dL Urine Glucose (UA) NEG mg/dL Urine Ketones NEG mg/dL Urine Occult Blood MOD Urine Nitrite NEG Urine Bilirubin NEG Urine Urobilinogen LESS THAN 2.0 MG/DL Urine Leukocyte Esterase LARGE Urine RBC 2 /hpf Urine WBC 164 /hpf Urine WBC Clumps FEW Urine Squamous Epithelial Cells 5 /hpf Urine Bacteria MANY /hpf Microscopic Urinalysis Comment CULTURE INDICATED Lactic Acid Level 2.0 mmol/L Test 01/12/18 04:04 White Blood Count 17.7 TH/MM3 Red Blood Count 2.76 MIL/MM3 Hemoglobin 6.8 GM/DL Hematocrit 20.7 % Mean Corpuscular Volume 75.0 FL Mean Corpuscular Hemoglobin 24.5 PG Mean Corpuscular Hemoglobin Concent 32.7 % Red Cell Distribution Width 18.2 % Platelet Count 383 TH/MM3 Mean Platelet Volume 7.9 FL Neutrophils (%) (Auto) 81.7 % Lymphocytes (%) (Auto) 10.3 % Monocytes (%) (Auto) 6.7 % Eosinophils (%) (Auto) 1.1 % Basophils (%) (Auto) 0.2 % Neutrophils # (Auto) 14.5 TH/MM3 Lymphocytes # (Auto) 1.8 TH/MM3 Monocytes # (Auto) 1.2 TH/MM3 Eosinophils # (Auto) 0.2 TH/MM3 Basophils # (Auto) 0.0 TH/MM3 CBC Comment DIFF FINAL Differential Comment Blood Urea Nitrogen 106 MG/DL Creatinine 3.91 MG/DL Random Glucose 111 MG/DL Total Protein 6.9 GM/DL Albumin 2.0 GM/DL Calcium Level 7.7 MG/DL Alkaline Phosphatase 67 U/L Aspartate Amino Transf (AST/SGOT) 19 U/L Alanine Aminotransferase (ALT/SGPT) 13 U/L Total Bilirubin 0.2 MG/DL Sodium Level 153 MEQ/L Potassium Level 4.5 MEQ/L Chloride Level 122 MEQ/L Carbon Dioxide Level 20.2 MEQ/L Anion Gap 11 MEQ/L Estimat Glomerular Filtration Rate 13 ML/MIN Imaging Last Impressions Chest X-Ray 01/11/18 0000 Signed Impressions: Service Date/Time: Thursday, January 11, 2018 16:17 - CONCLUSION: 1. No acute cardiopulmonary disease. Shawn Gomez MD Abdomen/Pelvis CT 01/11/18 0000 Signed Impressions: Service Date/Time: Thursday, January 11, 2018 17:08 - CONCLUSION: 1. Severe bilateral hydroureteronephrosis extending to the UV junction with moderately distended bladder demonstrating moderate diffuse bladder wall thickening. Differential considerations include neurogenic bladder versus bladder outlet obstruction. 2. 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 This has apparently been previously biopsied and evaluated. 3. Single slightly prominent air-filled loop of distal jejunum. This finding is nonspecific and may reflect focal adynamic ileus. Shawn Gomez MD Objective Remarks GENERAL: SKIN: Warm and dry. HEAD: Atraumatic. Normocephalic. EYES: Pupils equal and round. No scleral icterus. No injection or drainage. ENT: No nasal bleeding or discharge. Mucous membranes pink and moist. NECK: Trachea midline. No JVD. CARDIOVASCULAR: Regular rate and rhythm. RESPIRATORY: No accessory muscle use. Clear to auscultation. Breath sounds equal bilaterally. GASTROINTESTINAL: Abdomen soft, non-tender, nondistended. Hepatic and splenic margins not palpable. MUSCULOSKELETAL: Extremities without clubbing, cyanosis, or edema. No obvious deformities. NEUROLOGICAL: Awake and alert. No obvious cranial nerve deficits. Motor grossly within normal limits. Five out of 5 muscle strength in the arms and legs. Normal speech. PSYCHIATRIC: Appropriate mood and affect; insight and judgment normal. Medications and IVs Current Medications Sodium Chloride (NS Flush) 2 ml UNSCH PRN IV FLUSH FLUSH AFTER USING IV ACCESS ; Start 01/11/18 at 14:45 Pantoprazole Sodium 80 mg/ Sodium Chloride 100 ml @ 10 mls/hr CONTINUOUS IV Last administered on 01/12/18at 04:24; Start 01/11/18 at 14:45 Pantoprazole Sodium 80 mg/ Sodium Chloride 35 ml @ 420 mls/hr BOLUS ONCE IV Last administered on 01/11/18at 15:58; Start 01/11/18 at 14:45; Stop 01/11/18 at 14:49; Status DC Sodium Chloride 500 ml @ 500 mls/hr BOLUS ONCE IV Last administered on at 15:58; Start 01/11/18 at 14:45; Stop 01/11/18 at 15:44; Status DC Sodium Chloride 1,000 ml @ 999 mls/hr BOLUS ONCE IV Last administered on 01/11at 15:45; Start 01/11/18 at 15:45; Stop 01/11/18 at 16:45; Status DC Sodium Chloride (NS Flush) 2 ml UNSCH PRN IV FLUSH FLUSH AFTER USING IV ACCESS ; Start 01/11/18 at 18:45 Sodium Chloride (NS Flush) 2 ml BID IV FLUSH Last administered on 01/12/18at 08: 18; Start 01/11/18 at 21:00 Acetaminophen (Tylenol) 650 mg Q4H PRN PO TEMP > 100.4; Start 01/11/18 at 18:45 Naloxone HCl (Narcan Inj) 0.4 mg UNSCH PRN IV PUSH SEE LABEL COMMENTS; Start at 18:45 Senna/Docusate Sodium (Marisa-Colace) 1 tab BID PO Last administered on at 08:17; Start 01/11/18 at 21:00 Ceftriaxone Sodium 1000 mg/ Sodium Chloride 100 ml @ 200 mls/hr Q24H IV Last administered on 01/11/18at 20:20; Start 01/11/18 at 20:00 Sodium Bicarbonate 75 meq/Sodium Chloride 1,075 ml @ 42 mls/hr Q24H IV Last administered on 01/11/18at 22:13; Start 01/11/18 at 20:00 Amlodipine Besylate (Norvasc) 10 mg DAILY PO Last administered on 01/12/18at 08: 17; Start 01/11/18 at 18:45 Carvedilol (Coreg) 12.5 mg BID PO Last administered on 01/12/18at 08:17; Start 01/11/18 at 21:00 Pravastatin Sodium (Pravachol) 20 mg DAILY PO Last administered on 01/12/18at 08 :17; Start 01/12/18 at 09:00 Sodium Chloride 250 ml @ 15 mls/hr ONCE ONCE IV ; Start 01/12/18 at 05:00; Stop 01/12/18 at 21:39 Furosemide (Lasix Inj) 20 mg ONCE ONCE IV PUSH ; Start 01/12/18 at 05:00; Stop 01/12/18 at 05:01; Status DC A/P Problem List: (1) Black stool ICD Code: K92.1 - Melena (2) Diarrhea ICD Code: R19.7 - Diarrhea, unspecified (3) Back pain ICD Code: M54.9 - Dorsalgia, unspecified (4) Poor appetite ICD Code: R63.0 - Anorexia (5) ABIOLA (acute kidney injury) ICD Code: N17.9 - Acute kidney failure, unspecified (6) Anemia ICD Code: D64.9 - Anemia, unspecified (7) UTI (urinary tract infection) ICD Code: N39.0 - Urinary tract infection, site not specified Assessment and Plan 82-year-old female with PMH of borderline DM, HTN, PVD, CAD, and pancreatic tumors who presents to the ER accompanied by daughter and stepdaughter with complaints of "not feeling good". Urosepsis-UTI with hydronephrosis -Complaints of back pain, WBC count 18.4 with left shift, heart rate >90 on admission -CT of abdomen and pelvis personally reviewed, severe bilateral hydronephrosis extending to UV junction with moderately distended bladder demonstrating moderate diffuse bladder wall thickening. -Insert Crowe catheter. Consult urology for further recommendations. -Check blood cultures 2, check lactic acid, start ceftriaxone 1 g every 24 hours -UA positive for occult blood, leukocyte esterase, WBC clumps. Continue following culture and sensitivity and adjust antibiotics accordingly -Follow CBC in the a.m. ABIOLA-likely secondary to dehydration Metabolic acidosis secondary to ABIOLA Hypernatremia -Poor p.o. intake for the past 2 weeks with ongoing diarrhea -IV hydration with 1/2 NS w/bicarb at 42ml/hr -Consult nephrology services for further recommendations. -Monitor electrolytes Black stools/diarrhea Anemia -Hemoccult in the ED positive. H&H on admission 8.2/24.9 -Continue trending H&H and transfuse as needed - consult GI services for further recommendations HTN, BP elevated HLD -Continue amlodipine 10 mg daily and Coreg 12.5 mg twice daily -Continue pravastatin 20 mg daily DVT prophylaxis- SCD's no chemical prophylaxis secondary to suspected GIB PT AND OT SEEN BY UROLOGY TONY RN AND PT AWAIT GI AND NEPHROLOGY CONSULTS AM LABS Discharge Planning PENDING GI AND NEPHROLOGY AND UROLOGY CLEARANCE Problem Qualifiers (1) UTI (urinary tract infection): Qualified Codes: N30.00 - Acute cystitis without hematuria Rock Lorenzo DO January 12, 2018 10:50
[2018-01-12] MEDS: cloNIDine HCL 0.1 MG TAB PO SCH ×2 (12:27→16:25)
[2018-01-12] MEDS: FERROUS SULFATE 325 MG (65 MG ELEMENTAL IRON) TAB PO SCH ×2 (12:27→16:25)
--- NOTE | 2018-01-12 14:36 | PD.CONS ---
HPI Service Nephrology Consult Requested By Reason for Consult Acute renal failure Primary Care Physician Annalise Slaughter M.D. History of Present Illness 82-year-old white female with a poor historian, during evaluation she was found to have UTI and had CT of the abdomen and pelvis which showed bilateral hydronephrosis and urology consult was done, a Crowe catheter had been advised she has some bladder wall thickening and creatinine was elevated above 4.2 declined to 3.9 Past Family Social History Allergies: Coded Allergies: No Known Allergies (Verified Allergy, Unknown, 01/11/18) Past Medical History borderline DM HTN PVD CAD Hx pancreatic tumors, were told these were normal Past Surgical History Denies past surgical history other than pancreatic biopsies. Reported Medications Reported Meds & Active Scripts Active Reported Pravastatin 20 Mg Tab 20 Mg PO DAILY Carvedilol 12.5 Mg Tab 12.5 Mg PO BID Clonidine (Clonidine HCl) 0.1 Mg Tab 0.1 Mg PO TID Furosemide 40 Mg Tab 40 Mg PO DAILY Amlodipine (Amlodipine Besylate) 10 Mg Tab 10 Mg PO DAILY Ferrous Sulfate 325 Mg (65 Mg Iron) Tablet 325 Mg PO TIDPC Lisinopril 40 Mg Tab 40 Mg PO DAILY Active Ordered Medications Current Medications Medications (Trade) Dose Ordered Sig/Gildardo Route Start Time Stop Time Status Last Admin (NS Flush) 2 ml UNSCH PRN IV FLUSH 01/11/18 14:45 Pantoprazole Sodium 80 mg/ Sodium Chloride 100 ml @ 10 mls/hr CONTINUOUS IV 01/11/18 14:45 01/12/18 12:31 (NS Flush) 2 ml UNSCH PRN IV FLUSH 01/11/18 18:45 (NS Flush) 2 ml BID IV FLUSH 01/11/18 21:00 01/12/18 08:18 (Tylenol) 650 mg Q4H PRN PO 01/11/18 18:45 (Narcan Inj) 0.4 mg UNSCH PRN IV PUSH 01/11/18 18:45 (Marisa-Colace) 1 tab BID PO 01/11/18 21:00 01/12/18 08:17 Ceftriaxone Sodium 1000 mg/ Sodium Chloride 100 ml @ 200 mls/hr Q24H IV 01/11/18 20:00 01/11/18 20:20 Sodium Bicarbonate 75 meq/Sodium Chloride 1,075 ml @ 42 mls/hr Q24H IV 01/11/18 20:00 01/11/18 22:13 (Norvasc) 10 mg DAILY PO 01/11/18 18:45 01/12/18 08:17 (Coreg) 12.5 mg BID PO 01/11/18 21:00 01/12/18 08:17 (Pravachol) 20 mg DAILY PO 01/12/18 09:00 01/12/18 08:17 Sodium Chloride 250 ml @ 15 mls/hr ONCE ONCE IV 01/12/18 05:00 01/12/18 21:39 (Catapres) 0.1 mg TID PO 01/12/18 13:00 01/12/18 12:27 (Ferrous Sulfate) 325 mg TIDPC PO 01/12/18 13:30 01/12/18 12:27 Family History Noncontributory Social History Denies smoking Physical Exam Vital Signs Vital Signs Date Time Temp Pulse Resp B/P (MAP) Pulse Ox O2 Delivery O2 Flow Rate FiO2 01/12/18 14:18 97.3 69 16 156/64 94 01/12/18 12:00 98.4 69 18 180/81 (114) 98 01/12/18 08:20 98.5 95 17 154/74 (100) 100 01/12/18 08:00 79 01/12/18 07:53 Room Air 01/12/18 03:39 98.7 92 19 147/63 (91) 99 01/12/18 03:35 89 01/11/18 23:57 96 01/11/18 23:48 98.5 85 18 149/70 (96) 97 01/11/18 22:05 Room Air 01/11/18 21:41 93 01/11/18 21:32 99.1 94 19 123/69 (87) 99 01/11/18 21:07 01/11/18 19:18 83 20 155/98 (117) 100 Room Air 01/11/18 18:10 87 19 148/65 (92) 99 Room Air 01/11/18 18:10 87 19 148/65 (92) 99 Room Air Physical Exam GENERAL: Well-nourished, well-developed patient. SKIN: Warm and dry. HEAD: Normocephalic. EYES: No scleral icterus. No injection or drainage. NECK: Supple, trachea midline. No JVD or lymphadenopathy. CARDIOVASCULAR: Regular rate and rhythm without murmurs, gallops, or rubs. RESPIRATORY: Breath sounds equal bilaterally. No accessory muscle use. GASTROINTESTINAL: Abdomen soft, non-tender, nondistended. EXTREMITIES: No cyanosis, or edema. NEUROLOGICAL: Awake, alert, and oriented x 3. Non-focal. Laboratory Laboratory Tests Test 01/11/18 14:50 01/11/18 16:35 01/11/18 17:51 01/11/18 20:05 White Blood Count 18.4 18.3 Red Blood Count 3.34 3.09 Hemoglobin 8.2 7.4 Hematocrit 24.9 22.6 Mean Corpuscular Volume 74.4 73.2 Mean Corpuscular Hemoglobin 24.6 23.9 Mean Corpuscular Hemoglobin Concent 33.1 32.6 Red Cell Distribution Width 18.9 18.8 Platelet Count 411 430 Mean Platelet Volume 8.1 7.8 Neutrophils (%) (Auto) 81.0 Lymphocytes (%) (Auto) 12.4 Monocytes (%) (Auto) 6.0 Eosinophils (%) (Auto) 0.4 Basophils (%) (Auto) 0.2 Neutrophils # (Auto) 14.9 Lymphocytes # (Auto) 2.3 Monocytes # (Auto) 1.1 Eosinophils # (Auto) 0.1 Basophils # (Auto) 0.0 CBC Comment AUTO DIFF Differential Comment AUTO DIFF CONFIRMED Platelet Estimate NORMAL Platelet Morphology Comment NORMAL Target Cells 1+ Helmet Cells OCC Blood Urea Nitrogen 115 Creatinine 4.24 Random Glucose 116 Total Protein 7.6 Albumin 2.1 Calcium Level 8.2 Alkaline Phosphatase 75 Aspartate Amino Transf (AST/SGOT) 18 Alanine Aminotransferase (ALT/SGPT) 14 Total Bilirubin 0.2 Sodium Level 149 Potassium Level 4.8 Chloride Level 118 Carbon Dioxide Level 18.5 Anion Gap 13 Estimat Glomerular Filtration Rate 10 Lipase 103 Prothrombin Time 11.0 Prothromb Time International Ratio 1.1 Activated Partial Thromboplast Time 22.0 Urine Color LIGHT-YELLOW Urine Turbidity HAZY Urine pH 7.5 Urine Specific Ira 1.013 Urine Protein 100 Urine Glucose (UA) NEG Urine Ketones NEG Urine Occult Blood MOD Urine Nitrite NEG Urine Bilirubin NEG Urine Urobilinogen LESS THAN 2.0 Urine Leukocyte Esterase LARGE Urine RBC 2 Urine WBC 164 Urine WBC Clumps FEW Urine Squamous Epithelial Cells 5 Urine Bacteria MANY Microscopic Urinalysis Comment CULTURE INDICATED Lactic Acid Level 2.0 Test 01/12/18 04:04 White Blood Count 17.7 Red Blood Count 2.76 Hemoglobin 6.8 Hematocrit 20.7 Mean Corpuscular Volume 75.0 Mean Corpuscular Hemoglobin 24.5 Mean Corpuscular Hemoglobin Concent 32.7 Red Cell Distribution Width 18.2 Platelet Count 383 Mean Platelet Volume 7.9 Neutrophils (%) (Auto) 81.7 Lymphocytes (%) (Auto) 10.3 Monocytes (%) (Auto) 6.7 Eosinophils (%) (Auto) 1.1 Basophils (%) (Auto) 0.2 Neutrophils # (Auto) 14.5 Lymphocytes # (Auto) 1.8 Monocytes # (Auto) 1.2 Eosinophils # (Auto) 0.2 Basophils # (Auto) 0.0 CBC Comment DIFF FINAL Differential Comment Blood Urea Nitrogen 106 Creatinine 3.91 Random Glucose 111 Total Protein 6.9 Albumin 2.0 Calcium Level 7.7 Alkaline Phosphatase 67 Aspartate Amino Transf (AST/SGOT) 19 Alanine Aminotransferase (ALT/SGPT) 13 Total Bilirubin 0.2 Sodium Level 153 Potassium Level 4.5 Chloride Level 122 Carbon Dioxide Level 20.2 Anion Gap 11 Estimat Glomerular Filtration Rate 13 Date/Time Source Procedure Growth Status 01/11/18 20:08 Blood Peripheral Aerobic Blood Culture - Preliminary NO GROWTH IN 1 DAY Resulted 01/11/18 20:08 Blood Peripheral Anaerobic Blood Culture - Preliminary NO GROWTH IN 1 DAY Resulted 01/11/18 17:51 Urine Random Urine Urine Culture Pending Received Result Diagram: 01/12/18 0404 01/12/18 0404 Imaging Last Impressions Chest X-Ray 01/11/18 0000 Signed Impressions: Service Date/Time: Thursday, January 11, 2018 16:17 - CONCLUSION: 1. No acute cardiopulmonary disease. Shawn Gomez MD Abdomen/Pelvis CT 01/11/18 0000 Signed Impressions: Service Date/Time: Thursday, January 11, 2018 17:08 - CONCLUSION: 1. Severe bilateral hydroureteronephrosis extending to the UV junction with moderately distended bladder demonstrating moderate diffuse bladder wall thickening. Differential considerations include neurogenic bladder versus bladder outlet obstruction. 2. 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 This has apparently been previously biopsied and evaluated. 3. Single slightly prominent air-filled loop of distal jejunum. This finding is nonspecific and may reflect focal adynamic ileus. Shawn Gomez MD Assessment and Plan Problem List: (1) ABIOLA (acute kidney injury) ICD Codes: N17.9 - Acute kidney failure, unspecified Plan: Patient creatinine is declining Crowe catheter ordered With hydration Avoid nephrotoxins I agree with urological follow-up (2) UTI (urinary tract infection) ICD Codes: N39.0 - Urinary tract infection, site not specified Plan: On ceftriaxone (3) GI bleed ICD Codes: K92.2 - Gastrointestinal hemorrhage, unspecified Status: Acute Plan: Follow Hemoglobin PRBC given Problem Qualifiers (1) UTI (urinary tract infection): Qualified Codes: N30.00 - Acute cystitis without hematuria (2) GI bleed: Qualified Codes: K92.2 - Gastrointestinal hemorrhage, unspecified Carlin Rob MD January 12, 2018 14:36
--- NOTE | 2018-01-12 14:39 | PD.CONS ---
HPI History of Present Illness This is a 82 year old female with hx PVD, pancreatic masses, who presented to ER for 'not feeling good." Family reported she had decreased appetite, nausea, loose stool, and black stools. Per daughter she has had loose stools with dark blood, black tarry appearance for the last 3-4 days. She hadn't eaten much in 2 weeks and was complaining of back pain. Daughter does not think she takes ibuprofen frequently. Pt had colonoscopy by Dr Del Rosario and 2009 with finding colon polyps. Pt denies abd pain. "Don't f with my feet." Pt is otherwise noncontributory, hx obtained from EMR and pt's daughter. She was found to have UTI. (Erin Snider) PFSH Past Medical History borderline DM HTN PVD CAD Hx pancreatic tumors, were told these were normal Past Surgical History Denies past surgical history other than pancreatic biopsies. (Erin Snider) Coded Allergies: No Known Allergies (Verified Allergy, Unknown, 01/11/18) Family History PFH: DM, HTN Social History Tobacco: denies Alcohol:denies Illicit drug use: denies Ambulates with a walker, lives with son. (Erin Snider) Review of Systems noncontributory (Erin Snider) GI Exam Vitals I&O Vital Signs Date Time Temp Pulse Resp B/P (MAP) Pulse Ox O2 Delivery O2 Flow Rate FiO2 01/12/18 12:00 98.4 69 18 180/81 (114) 98 01/12/18 08:20 98.5 95 17 154/74 (100) 100 01/12/18 08:00 79 01/12/18 07:53 Room Air 01/12/18 03:39 98.7 92 19 147/63 (91) 99 01/12/18 03:35 89 01/11/18 23:57 96 01/11/18 23:48 98.5 85 18 149/70 (96) 97 01/11/18 22:05 Room Air 01/11/18 21:41 93 01/11/18 21:32 99.1 94 19 123/69 (87) 99 01/11/18 21:07 01/11/18 19:18 83 20 155/98 (117) 100 Room Air 01/11/18 18:10 87 19 148/65 (92) 99 Room Air 01/11/18 18:10 87 19 148/65 (92) 99 Room Air I/O 01/11/18 01/11/18 01/11/18 01/12/18 01/12/18 01/12/18 07:00 15:00 23:00 07:00 15:00 23:00 Intake Total 460 ml Balance 460 ml Intake Oral 360 ml IV Total 100 ml # Voids 2 5 # Bowel Movements 1 0 Imaging Last Impressions Chest X-Ray 01/11/18 0000 Signed Impressions: Service Date/Time: Thursday, January 11, 2018 16:17 - CONCLUSION: 1. No acute cardiopulmonary disease. Shawn Gomez MD Abdomen/Pelvis CT 01/11/18 0000 Signed Impressions: Service Date/Time: Thursday, January 11, 2018 17:08 - CONCLUSION: 1. Severe bilateral hydroureteronephrosis extending to the UV junction with moderately distended bladder demonstrating moderate diffuse bladder wall thickening. Differential considerations include neurogenic bladder versus bladder outlet obstruction. 2. 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 This has apparently been previously biopsied and evaluated. 3. Single slightly prominent air-filled loop of distal jejunum. This finding is nonspecific and may reflect focal adynamic ileus. Shawn Gomez MD Laboratory Test 01/11/18 14:50 01/11/18 16:35 01/11/18 17:51 01/11/18 20:05 White Blood Count 18.4 TH/MM3 18.3 TH/MM3 Red Blood Count 3.34 MIL/MM3 3.09 MIL/MM3 Hemoglobin 8.2 GM/DL 7.4 GM/DL Hematocrit 24.9 % 22.6 % Mean Corpuscular Volume 74.4 FL 73.2 FL Mean Corpuscular Hemoglobin 24.6 PG 23.9 PG Mean Corpuscular Hemoglobin Concent 33.1 % 32.6 % Red Cell Distribution Width 18.9 % 18.8 % Platelet Count 411 TH/MM3 430 TH/MM3 Mean Platelet Volume 8.1 FL 7.8 FL Neutrophils (%) (Auto) 81.0 % Lymphocytes (%) (Auto) 12.4 % Monocytes (%) (Auto) 6.0 % Eosinophils (%) (Auto) 0.4 % Basophils (%) (Auto) 0.2 % Neutrophils # (Auto) 14.9 TH/MM3 Lymphocytes # (Auto) 2.3 TH/MM3 Monocytes # (Auto) 1.1 TH/MM3 Eosinophils # (Auto) 0.1 TH/MM3 Basophils # (Auto) 0.0 TH/MM3 CBC Comment AUTO DIFF Differential Comment AUTO DIFF CONFIRMED Platelet Estimate NORMAL Platelet Morphology Comment NORMAL Target Cells 1+ Helmet Cells OCC Blood Urea Nitrogen 115 MG/DL Creatinine 4.24 MG/DL Random Glucose 116 MG/DL Total Protein 7.6 GM/DL Albumin 2.1 GM/DL Calcium Level 8.2 MG/DL Alkaline Phosphatase 75 U/L Aspartate Amino Transf (AST/SGOT) 18 U/L Alanine Aminotransferase (ALT/SGPT) 14 U/L Total Bilirubin 0.2 MG/DL Sodium Level 149 MEQ/L Potassium Level 4.8 MEQ/L Chloride Level 118 MEQ/L Carbon Dioxide Level 18.5 MEQ/L Anion Gap 13 MEQ/L Estimat Glomerular Filtration Rate 10 ML/MIN Lipase 103 U/L Prothrombin Time 11.0 SEC Prothromb Time International Ratio 1.1 RATIO Activated Partial Thromboplast Time 22.0 SEC Urine Color LIGHT-YELLOW Urine Turbidity HAZY Urine pH 7.5 Urine Specific [place] 1.013 Urine Protein 100 mg/dL Urine Glucose (UA) NEG mg/dL Urine Ketones NEG mg/dL Urine Occult Blood MOD Urine Nitrite NEG Urine Bilirubin NEG Urine Urobilinogen LESS THAN 2.0 MG/DL Urine Leukocyte Esterase LARGE Urine RBC 2 /hpf Urine WBC 164 /hpf Urine WBC Clumps FEW Urine Squamous Epithelial Cells 5 /hpf Urine Bacteria MANY /hpf Microscopic Urinalysis Comment CULTURE INDICATED Lactic Acid Level 2.0 mmol/L Test 01/12/18 04:04 White Blood Count 17.7 TH/MM3 Red Blood Count 2.76 MIL/MM3 Hemoglobin 6.8 GM/DL Hematocrit 20.7 % Mean Corpuscular Volume 75.0 FL Mean Corpuscular Hemoglobin 24.5 PG Mean Corpuscular Hemoglobin Concent 32.7 % Red Cell Distribution Width 18.2 % Platelet Count 383 TH/MM3 Mean Platelet Volume 7.9 FL Neutrophils (%) (Auto) 81.7 % Lymphocytes (%) (Auto) 10.3 % Monocytes (%) (Auto) 6.7 % Eosinophils (%) (Auto) 1.1 % Basophils (%) (Auto) 0.2 % Neutrophils # (Auto) 14.5 TH/MM3 Lymphocytes # (Auto) 1.8 TH/MM3 Monocytes # (Auto) 1.2 TH/MM3 Eosinophils # (Auto) 0.2 TH/MM3 Basophils # (Auto) 0.0 TH/MM3 CBC Comment DIFF FINAL Differential Comment Blood Urea Nitrogen 106 MG/DL Creatinine 3.91 MG/DL Random Glucose 111 MG/DL Total Protein 6.9 GM/DL Albumin 2.0 GM/DL Calcium Level 7.7 MG/DL Alkaline Phosphatase 67 U/L Aspartate Amino Transf (AST/SGOT) 19 U/L Alanine Aminotransferase (ALT/SGPT) 13 U/L Total Bilirubin 0.2 MG/DL Sodium Level 153 MEQ/L Potassium Level 4.5 MEQ/L Chloride Level 122 MEQ/L Carbon Dioxide Level 20.2 MEQ/L Anion Gap 11 MEQ/L Estimat Glomerular Filtration Rate 13 ML/MIN Date/Time Source Procedure Growth Status 01/11/18 20:08 Blood Peripheral Aerobic Blood Culture - Preliminary NO GROWTH IN 1 DAY Resulted 01/11/18 20:08 Blood Peripheral Anaerobic Blood Culture - Preliminary NO GROWTH IN 1 DAY Resulted 01/11/18 17:51 Urine Random Urine Urine Culture Pending Received Physical Examination HEENT: PERRL; normocephalic; atraumatic; no jaundice. CHEST: CTA CARDIAC: RRR ABDOMEN: Soft,obese, nontender; no hepatosplenomegaly; bowel sounds are present in all four quadrants. EXTREMITIES: No clubbing, cyanosis, +BLE edema SKIN: Normal; no rash; no jaundice. PHYSICAL OPTICS TEACHER: alert, speech mostly unintelligible (Erin Snider) Assessment and Plan Plan ASSESSMENT - anemia, heme pos stool, questionable melena - report of black tarry stool, loose stool.poss UGIB. hgb 8.2 on admission and has dropped to 6.8. had colonoscopy 2009, finding polyps. limited hx. d/w pts daughter who is agreeable to proceed with EGD. Daughter would like to avoid colonoscopy if possible, does not think her mother will cooperate with bowel prep. Based on my assessment, would agree with that as pt was uncooperative. PLAN - EGD in am - obtain consent - NPO after MN - monitor labs - transfuse 1 x PRBC now - further recs to follow pt seen by myself and Dr Rain and this note is on his behalf (Erin Snider) Physician Comments Patient seen and examined Agree with above Continue with current supportive care Monitor labs Plan for an EGD tomorrow (Harpal Rain MD) Erin Snider January 12, 2018 14:39 Harpal Rain MD January 12, 2018 22:24
[2018-01-12 19:24] LABS: HEMOGLOBIN 8.4 GM/DL (11.6-15.3)
[2018-01-12] MEDS: cefTRIAXone INJ 1,000 MG in SODIUM CHLORIDE 0.9% INJ 100 ML IV SCH (19:59)
[2018-01-12] MEDS: SODIUM BICARBONATE 8.4% INJ 75 MEQ in SODIUM CHLOR 0.45% 1000 ML INJ 1,000 ML IV SCH (20:00)
[2018-01-12] MEDS ORDERED: SODIUM CHLORID 0.9% 500 ML IV PRN (21:45)
[2018-01-12] MEDS ORDERED: METOPROLOL TARTRATE 25 MG TAB PO PRN (21:45)
[2018-01-12] MEDS ORDERED: CHLORHEXIDINE GLUCONATE 2 % 1 PACK (2 CLOTHS) TOPICAL PRN (21:45)
[2018-01-12] MEDS ORDERED: POVIDONE IODINE 5% (ANTISEPSIS KIT) 4 APPLICATIONS EACH NARE PRN (21:45)
[2018-01-12] MEDS ORDERED: INSULIN HUMAN REGULAR 1,000 UNITS/10 ML VIAL SQ PRN (21:45)
[2018-01-12] MEDS ORDERED: LACTATED RINGER'S 1000 ML IV PRN (21:45)
[2018-01-13] VITALS (11 sets, daily range): BP systolic 52–188; BP diastolic 58–87; PULSE 56–110; RESP 17–18; TEMP 96.9–98.7; O2SAT 96–99
[2018-01-13 04:41] LABS: AUTOMATED NEUTROPHIL # 9.8 TH/MM3 (1.8-7.7); BASOPHIL % 0.3 % (0.0-2.0); EOSINOPHIL # 0.3 TH/MM3 (0-0.4); EOSINOPHIL % 2.3 % (0.0-4.0); HEMATOCRIT 21.4 % (35.0-46.0); HEMOGLOBIN 7.2 GM/DL (11.6-15.3); LYMPH % 13.3 % (9.0-44.0); LYMPHOCYTE # 1.7 TH/MM3 (1.0-4.8); MEAN CELL VOLUME 75.4 FL (80.0-100.0); MEAN CORPUSCULAR HEMOGLOBIN 25.3 PG (27.0-34.0); MEAN CORPUSCULAR HGB CONC 33.6 % (32.0-36.0); MEAN PLATELET VOLUME 7.8 FL (7.0-11.0); MONOCYTE # 0.6 TH/MM3 (0-0.9); NEUT % 79.1 % (16.0-70.0); PLATELET COUNT 322 TH/MM3 (150-450); RED BLOOD COUNT 2.84 MIL/MM3 (4.00-5.30); RED CELL DISTRIBUTION WIDTH 18.7 % (11.6-17.2); WHITE BLOOD COUNT 12.4 TH/MM3 (4.0-11.0)
[2018-01-13 05:09] LABS: ALBUMIN 1.9 GM/DL (3.4-5.0); ALT (GPT) 12 U/L (10-53); AST (GOT) 12 U/L (15-37); BLOOD UREA NITROGEN 93 MG/DL (7-18); CALCIUM 7.8 MG/DL (8.5-10.1); CHLORIDE 118 MEQ/L (98-107); CREATININE 3.76 MG/DL (0.50-1.00); GLOMERULAR FILTRATION RATE 14 ML/MIN (>89); GLUCOSE,RANDOM 98 MG/DL (74-106); MAGNESIUM 2.1 MG/DL (1.5-2.5); SODIUM (NA) 151 MEQ/L (136-145)
[2018-01-13 05:18] LABS: ALKALINE PHOSPHATASE 59 U/L (45-117); FREE T4 1.22 NG/DL (0.76-1.46); PHOSPHORUS 3.8 MG/DL (2.5-4.9); TOTAL BILIRUBIN ADULT 0.2 MG/DL (0.2-1.0); TOTAL PROTEIN 6.2 GM/DL (6.4-8.2)
[2018-01-13] MEDS: DOCUSATE SODIUM 50 MG/SENNA 8.6 MG TAB PO SCH ×2 (06:52→20:20)
[2018-01-13] MEDS: PRAVASTATIN SOD 20 MG TAB PO SCH (06:52)
[2018-01-13] MEDS: FERROUS SULFATE 325 MG (65 MG ELEMENTAL IRON) TAB PO SCH ×3 (06:52→17:16)
[2018-01-13] MEDS ORDERED: SODIUM CHLOR 0.9% 250 ML INJ 250 ML IV ONE (07:45)
--- NOTE | 2018-01-13 08:24 | HHI.PR ---
Subjective Remarks Follow-up for anemia, GI bleed, ABIOLA, sepsis with UTI. Patient seen with her stepdaughter at bedside. The patient has no medical complaints including no headache, lightheadedness, dizziness, chest pain, shortness of breath, abdominal pain, nausea/vomiting. No fevers or chills overnight. Denies any urinary complaints. Hemoglobin dropped to 7.2 today, patient and stepdaughter agrees to blood transfusion. Patient going for EGD today. Objective Vitals Vital Signs Date Time Temp Pulse Resp B/P (MAP) Pulse Ox O2 Delivery O2 Flow Rate FiO2 01/13/18 07:30 98.2 62 18 161/64 (96) 98 01/13/18 04:10 98.1 62 18 184/72 (109) 97 01/13/18 01:13 98.1 62 17 115/59 (77) 99 01/13/18 01:10 98.7 83 18 52/ 97 01/12/18 19:40 98.0 61 17 105/50 (68) 97 01/12/18 19:21 55 01/12/18 16:26 97.7 71 139/63 (88) 100 01/12/18 14:50 97.8 64 18 137/63 (87) 100 01/12/18 14:46 97.8 64 18 137/63 100 01/12/18 14:18 97.3 69 16 156/64 94 01/12/18 12:00 98.4 69 18 180/81 (114) 98 01/12/18 08:20 98.5 95 17 154/74 (100) 100 I/O 01/12/18 01/12/18 01/12/18 01/13/18 01/13/18 01/13/18 07:00 15:00 23:00 07:00 15:00 23:00 Intake Total 460 ml 1320 ml 360 ml Output Total 350 ml 1300 ml Balance 460 ml 970 ml -940 ml Intake Oral 360 ml 720 ml 360 ml IV Total 100 ml 200 ml Packed Cells 400 ml Output Urine Total 350 ml 1300 ml # Voids 5 3 # Bowel Movements 0 0 0 Result Diagram: 01/13/18 0418 01/13/18 0418 Imaging Last Impressions Chest X-Ray 01/11/18 0000 Signed Impressions: Service Date/Time: Thursday, January 11, 2018 16:17 - CONCLUSION: 1. No acute cardiopulmonary disease. Shawn Gomez MD Abdomen/Pelvis CT 01/11/18 0000 Signed Impressions: Service Date/Time: Thursday, January 11, 2018 17:08 - CONCLUSION: 1. Severe bilateral hydroureteronephrosis extending to the UV junction with moderately distended bladder demonstrating moderate diffuse bladder wall thickening. Differential considerations include neurogenic bladder versus bladder outlet obstruction. 2. 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 This has apparently been previously biopsied and evaluated. 3. Single slightly prominent air-filled loop of distal jejunum. This finding is nonspecific and may reflect focal adynamic ileus. Shawn Gomez MD Objective Remarks GENERAL: Well-nourished, well-developed pleasant elderly female patient in [facility]. SKIN: Warm and dry. No rash. HEENT: Normocephalic. Atraumatic. Pupils equal and round. Mucous membranes pink and moist. CARDIOVASCULAR: Regular rate and rhythm. No murmur appreciated. RESPIRATORY: No accessory muscle use. Clear to auscultation. Breath sounds equal bilaterally. GASTROINTESTINAL: Abdomen soft, non-tender, nondistended. Normoactive bowel sounds x4. MUSCULOSKELETAL: No obvious deformities. Extremities without clubbing, cyanosis , or edema. NEUROLOGICAL: Awake and alert. No obvious cranial nerve deficits. Motor grossly within normal limits. Moving all extremities spontaneously. Normal speech. Medications and IVs Current Medications Medications (Trade) Dose Ordered Sig/Gildardo Route Start Time Stop Time Status Last Admin Pantoprazole Sodium 80 mg/ Sodium Chloride 100 ml @ 10 mls/hr CONTINUOUS IV 01/11/18 14:45 01/12/18 23:58 (NS Flush) 2 ml UNSCH PRN IV FLUSH 01/11/18 18:45 (NS Flush) 2 ml BID IV FLUSH 01/11/18 21:00 01/12/18 08:18 (Tylenol) 650 mg Q4H PRN PO 01/11/18 18:45 (Narcan Inj) 0.4 mg UNSCH PRN IV PUSH 01/11/18 18:45 (Marisa-Colace) 1 tab BID PO 01/11/18 21:00 01/12/18 08:17 Ceftriaxone Sodium 1000 mg/ Sodium Chloride 100 ml @ 200 mls/hr Q24H IV 01/11/18 20:00 01/12/18 19:59 Sodium Bicarbonate 75 meq/Sodium Chloride 1,075 ml @ 42 mls/hr Q24H IV 01/11/18 20:00 01/11/18 22:13 (Norvasc) 10 mg DAILY PO 01/11/18 18:45 01/12/18 08:17 (Coreg) 12.5 mg BID PO 01/11/18 21:00 01/12/18 19:59 (Pravachol) 20 mg DAILY PO 01/12/18 09:00 01/12/18 08:17 (Catapres) 0.1 mg TID PO 01/12/18 13:00 01/12/18 16:25 (Ferrous Sulfate) 325 mg TIDPC PO 01/12/18 13:30 01/12/18 16:25 Lactated Ringer's 1,000 ml @ 30 mls/hr Q24H PRN IV 01/12/18 21:45 01/15/18 21:44 Sodium Chloride 500 ml @ 30 mls/hr [id number] PRN IV 01/12/18 21:45 01/15/18 21:44 (Lopressor) 25 mg TECHNOLOGY AUDITOR PRN PO 01/12/18 21:45 01/15/18 21:44 (Betadine 5% Antisepsis Kit) 1 applic TECHNOLOGY AUDITOR PRN EACH NARE 01/12/18 21:45 01/15/18 21:44 (Chlorhexidine 2% Cloth) 3 pack TECHNOLOGY AUDITOR PRN TOPICAL 01/12/18 21:45 01/15/18 21:44 (NovoLIN R INJ) See Protocol Table ... TECHNOLOGY AUDITOR PRN SQ 01/12/18 21:45 01/15/18 21:44 Sodium Chloride 250 ml @ 15 mls/hr ONCE ONCE IV 01/13/18 07:45 01/14/18 00:24 A/P Problem List: (1) Black stool ICD Code: K92.1 - Melena (2) Diarrhea ICD Code: R19.7 - Diarrhea, unspecified (3) Back pain ICD Code: M54.9 - Dorsalgia, unspecified (4) Poor appetite ICD Code: R63.0 - Anorexia (5) ABIOLA (acute kidney injury) ICD Code: N17.9 - Acute kidney failure, unspecified (6) Anemia ICD Code: D64.9 - Anemia, unspecified (7) UTI (urinary tract infection) ICD Code: N39.0 - Urinary tract infection, site not specified Assessment and Plan 82-year-old female with PMH of borderline DM, HTN, PVD, CAD, and pancreatic tumors who presents to the ER accompanied by daughter and stepdaughter with complaints of "not feeling good". Sepsis with Complicated UTI/Pyelonephritis and hydronephrosis: Complaints of back pain. Meets sepsis with WBC count 18.4 with left shift, HR >90 on admission , and suspected source-UTI/pyelo. Lactic acid 2.0. -CT abd/pelvis reviewed, severe bilateral hydronephrosis extending to UV junction with moderately distended bladder demonstrating moderate diffuse bladder wall thickening. -UA positive for occult blood, leukocyte esterase, WBC clumps. -Insert Crowe catheter on 01/11 -Blood cultures with NGTD -Urine culture preliminary with gram negative venecia, continue to monitor, adjust antibiotics accordingly -Continue on IV Rocephin 1G daily -Consulted urology, recommends continuing Crowe and antibiotics -Monitor CBC, WBC trending down, 12.4K today ABIOLA-likely secondary to dehydration/infection Metabolic acidosis secondary to ABIOLA Hypernatremia -Poor p.o. intake for the past 2 weeks with ongoing diarrhea -Continue IV hydration with 1/2 NS w/bicarb at 42ml/hr -Consult nephrology, appreciate recommendations -BMP improving, continue to monitor Anemia with Black stools/diarrhea: Hemoccult in the ED positive. H&H on admission 8.2/24.9 -Hgb dropped to 6.8 on 01/12, given 1u pRBC transfusion, Hgb improved to 8.4 -Continue trending H&H and transfuse as needed -Consult GI, plans for EGD today -Hgb 7.2 again today, give another 1u pRBC transfusion -Monitor CBC HTN/HLD: BP not well controlled -Continue amlodipine 10 mg daily and Coreg 12.5 mg twice daily -Continue pravastatin 20 mg daily -Monitor BP, adjust antihypertensives as needed -Clonidine prn DVT prophylaxis- SCD's; avoid chemical prophylaxis secondary to anemia with suspected GIB Discharge Planning Discharge pending EGD today, urine culture, improvement of anemia, improvement of ABIOLA. Likely needs additional 2-3days of hospitalization. Problem Qualifiers (1) UTI (urinary tract infection): Qualified Codes: N30.00 - Acute cystitis without hematuria Rosa Bragg PA-C January 13, 2018 08:24
[2018-01-13] MEDS ORDERED: cloNIDine HCL 0.1 MG TAB PO PRN (08:30)
[2018-01-13] MEDS: CARVEDILOL 12.5 MG TAB PO SCH ×2 (08:53→20:20)
[2018-01-13] MEDS: cloNIDine HCL 0.1 MG TAB PO SCH ×3 (08:53→17:16)
[2018-01-13] MEDS: SODIUM CHLORIDE 0.9% FLUSH 10 ML FLUSH IV FLUSH SCH ×2 (08:56→20:21)
[2018-01-13] MEDS: PANTOPRAZOLE INJ 80 MG in SODIUM CHLORIDE 0.9% INJ 100 ML IV SCH (11:16)
[2018-01-13] MEDS ORDERED: LIDOCAINE HCL 1% PF 5 ML SYRINGE OTHER ONE (12:00)
[2018-01-13] MEDS ORDERED: PROPOFOL 200 MG/20 ML AMP IV ONE (12:00)
[2018-01-13] MEDS ORDERED: Vancomycin Consult Pharmacy 1 EA OTHER SCH (12:15)
[2018-01-13] MEDS ORDERED: WALKER WHEELS/F1 MIS (13:35)
--- NOTE | 2018-01-13 13:48 | MB ---
cc: Octavio Choudhury MD DATE: 01/13/2018 REQUESTING PHYSICIAN: Dr. Zenobia Bragg REASON: UTI and positive blood culture. HISTORY OF PRESENT ILLNESS: This is an 82-year-old black female who presented to the Emergency Department on 01/11/2018 with diarrhea. The patient reportedly was not eating and was having diarrhea. She reportedly had been sick for a couple of weeks. She was evaluated by Gastroenterology and is due to undergo a GI procedure today. The patient's white blood cell count on admission was 18.4 and she was noted to have decreased renal function and abnormal urinalysis. Urine culture was obtained and it shows E coli. Blood cultures were taken on admission and 1/4 bottles has gram-positive cocci. The patient has been afebrile. She is currently awake and alert. She is lying in bed and is in no acute distress. She denies to me, chills, nausea, vomiting, shortness of breath, back pain or abdominal pain. She tells me that she was having frequent urination before admission. She states that she was not eating because the food just did not taste good. Her white blood cell count has improved since admission. Today, it is 12.4. Imaging studies showed no acute cardiopulmonary disease on chest x-ray. CT scan of the abdomen showed bilateral hydroureteronephrosis and a moderately distended bladder with diffuse bladder wall thickening. A large cystic mass was noted at the pancreatic head similar to prior CT exam. The patient has a Crowe catheter in place. The urine has slight mucus sediment, but otherwise is clear yellow. PAST MEDICAL HISTORY: Hypertension, borderline diabetes, peripheral vascular disease, coronary artery disease, history of pancreatic mass. ALLERGIES: NO KNOWN DRUG ALLERGIES. MEDICATIONS: 1. Ceftriaxone. 2. Ferrous sulfate. 3. Pravachol. 4. Catapres. 5. Marisa-Colace. 6. Coreg. SOCIAL HISTORY: No tobacco, no alcohol, no illicit drugs. FAMILY HISTORY: Noncontributory. REVIEW OF SYSTEMS: Pertinents mentioned above in the History Of Present Illness. All systems negative except for urinary frequency and diarrhea. PHYSICAL EXAMINATION: GENERAL: This is a well-developed female who is in no acute distress. She is awake and alert and oriented. VITAL SIGNS: Temperature 97.3, BP 131/65, respirations 17, heart rate 63. HEENT: Head: Atraumatic. Extraocular movements grossly intact. Pupils reactive to light. No icterus. Oropharynx: Moist mucosa. No lesions. NECK: Supple without adenopathy. LUNGS: Clear breath sounds bilaterally. HEART: Regular S1, S2, without murmurs, rubs or gallops. ABDOMEN: Positive bowel sounds. Soft, nontender. RECTAL: Not performed. EXTREMITIES: No clubbing or cyanosis. 2+ edema, diffuse. SKIN: No rash. NEUROLOGIC: No gross focal findings. PSYCHIATRIC: The patient is calm and cooperative. LABORATORY DATA: WBC is 12.4, platelets 322, 79% neutrophils, hemoglobin 7.2. Creatinine is 3.76, BUN 93, estimated GFR 14, sodium 151. IMPRESSION: 1. Urinary tract infection due to Escherichia coli. 2. Bacteremia due to gram-positive bacteria. The patient has one of four positive blood cultures and very likely that is contamination. She is not toxic-appearing from a clinical standpoint and the white blood cell count is improving with treatment for the urinary tract infection. 3. Acute on chronic kidney disease. RECOMMENDATIONS: 1. Continue treatment for the E. coli UTI. The patient is currently on ceftriaxone which appears to be leading to improvement with improvement in her white blood cell count. 2. No additional treatment needed for the gram-positive bacteria in the blood stream. 3. Transition to oral antibiotics with continued improvement in the white blood cell count. Thank you for this consultation. The patient's progress will be monitored. MD DUARTE Downing/SB , 01:21 PM , 01:47 PM
--- NOTE | 2018-01-13 13:52 | HHI.NPPN ---
Subjective History of Present Illness 82-year-old female with UTI, acute renal failure, GI bleed Objective Data Data 01/13/18 01/14/18 19:00 07:00 Intake Total 410 ml Balance 410 ml Packed Cells 400 ml Blood Product IV Normal Saline Flush 10 ml Vital Signs Date Time Temp Pulse Resp B/P (MAP) Pulse Ox O2 Delivery O2 Flow Rate FiO2 01/13/18 11:15 97.3 63 17 131/65 (87) 99 01/13/18 09:25 97.6 60 18 134/58 98 01/13/18 09:04 98.6 110 17 188/76 96 01/13/18 07:30 98.2 62 18 161/64 (96) 98 01/13/18 04:10 98.1 62 18 184/72 (109) 97 01/13/18 01:13 98.1 62 17 115/59 (77) 99 01/13/18 01:10 98.7 83 18 52/ 97 01/12/18 19:40 98.0 61 17 105/50 (68) 97 01/12/18 19:21 55 01/12/18 16:26 97.7 71 139/63 (88) 100 01/12/18 14:50 97.8 64 18 137/63 (87) 100 01/12/18 14:46 97.8 64 18 137/63 100 01/12/18 14:18 97.3 69 16 156/64 94 -: 01/13/18 0418 01/13/18 0418 Microbiology 01/13/18 Aerobic Blood Culture, Received Pending 01/13/18 Anaerobic Blood Culture, Received Pending 01/13/18 Aerobic Blood Culture, Received Pending 01/13/18 Anaerobic Blood Culture, Received Pending Physical Exam General Appearance: Well Developed Neck Neck Exam: Neck Supple Pulmonary Resp Exam: Clear Bilaterally, Breath Sounds Equal Cardiology CV Exam: Regular, Normal Sinus Rhythm Gastrointestinal/Abdomen GI Exam: Soft, Non-Tender, Bowel Sounds Present Integumentary Skin Exam: Clear Extremeties Extremities Exam: Moderate Edema Assessment/Plan Problem List: (1) ABIOLA (acute kidney injury) ICD Codes: N17.9 - Acute kidney failure, unspecified Plan: Patient creatinine is declining Crowe catheter placed Continue with hydration Avoid nephrotoxins urological follow-up (2) UTI (urinary tract infection) ICD Codes: N39.0 - Urinary tract infection, site not specified Plan: On ceftriaxone (3) GI bleed ICD Codes: K92.2 - Gastrointestinal hemorrhage, unspecified Status: Acute Plan: Follow Hemoglobin Problem Qualifiers (1) UTI (urinary tract infection): Qualified Codes: N30.00 - Acute cystitis without hematuria (2) GI bleed: Qualified Codes: K92.2 - Gastrointestinal hemorrhage, unspecified Carlin Rob MD January 13, 2018 13:52
[2018-01-13] MEDS ORDERED: VANCOMYCIN 1,500 MG/NS 500 ML IV ONE ×2 (15:00)
[2018-01-13 16:10] LABS: HEMOGLOBIN A1C 5.8 % (4.3-6.0)
[2018-01-13] MEDS ORDERED: DO NOT ADM ANY ANTICOAGULANT DRUGS PRN (16:12)
--- NOTE | 2018-01-13 16:17 | PD.PROCEDR ---
GI Procedure PROCEDURE PERFORMED EGD with biopsy INDICATION FOR PROCEDURE Melena, anemia, guaiac positive stools PROCEDURE: The procedure, risks and benefits were discussed with Patient/POA and informed consent was obtained. Anesthesia sedated Patient with Diprivan. Patient was placed in the left lateral decubitus position. EGD: The Pentax videoscope was introduced through the oropharynx and advanced to the second portion of the duodenum under direct visualization. Retroflexion was performed in the stomach. FINDINGS: The esophagus there was distal esophageal mucosal erythema just of reflux esophagitis this was biopsied otherwise the rest of the esophagus was unremarkable The stomach there was a small hiatal hernia otherwise gastric mucosa was unremarkable with normal limits The duodenum this to appear to be unremarkable and within normal limits ESTIMATED BLOOD LOSS: None SPECIMENS REMOVED: Esophageal biopsy COMPLICATIONS: None IMPRESSION: Reflux esophagitis Hiatal hernia PLAN: Await biopsies Continue pantoprazole Monitor labs Further recommendations shall depend on hospital course Harpal Rain MD January 13, 2018 16:17
--- NOTE | 2018-01-13 16:50 | EKG ---
Date Performed: 01/12/2018 Time Performed: 21:18:54 PTAGE: 82 years EKG: Sinus rhythm WITH OCCASIONAL SUPRAVENTRICULAR PREMATURE COMPLEXES MARKED LEFT AXIS DEVIATION LEFT VENTRICULAR HYP ERTROPHY AND ST-T CHANGE POSSIBLE SEPTAL MYOCARDIAL INFARCTION , OF INDETERMINATE AGE ABNORMAL ECG PREVIOUS TRACING : 06/18/2010 08.56 Since the previous tracing, no significant change noted DOCTOR: Dayana Molina Interpretating Date/Time 01/13/2018 16:50:17
[2018-01-13] MEDS: SODIUM BICARBONATE 8.4% INJ 75 MEQ in SODIUM CHLOR 0.45% 1000 ML INJ 1,000 ML IV SCH (20:00)
[2018-01-13] MEDS: cefTRIAXone INJ 1,000 MG in SODIUM CHLORIDE 0.9% INJ 100 ML IV SCH (20:21)
[2018-01-14] VITALS (8 sets, daily range): BP systolic 132–177; BP diastolic 58–79; PULSE 51–74; RESP 17–20; TEMP 97.8–98.9; O2SAT 98–100
[2018-01-14] MEDS: PANTOPRAZOLE INJ 80 MG in SODIUM CHLORIDE 0.9% INJ 100 ML IV SCH ×2 (02:03→12:53)
[2018-01-14 05:40] LABS: AUTOMATED NEUTROPHIL # 6.7 TH/MM3 (1.8-7.7); BASOPHIL % 0.4 % (0.0-2.0); EOSINOPHIL # 0.3 TH/MM3 (0-0.4); HEMATOCRIT 24.5 % (35.0-46.0); HEMOGLOBIN 8.4 GM/DL (11.6-15.3); LYMPH % 16.3 % (9.0-44.0); LYMPHOCYTE # 1.5 TH/MM3 (1.0-4.8); MEAN CELL VOLUME 76.8 FL (80.0-100.0); MEAN CORPUSCULAR HEMOGLOBIN 26.4 PG (27.0-34.0); MEAN CORPUSCULAR HGB CONC 34.4 % (32.0-36.0); MEAN PLATELET VOLUME 8.2 FL (7.0-11.0); MONO % 6.8 % (0.0-8.0); MONOCYTE # 0.6 TH/MM3 (0-0.9); NEUT % 73.5 % (16.0-70.0); PLATELET COUNT 293 TH/MM3 (150-450); RED BLOOD COUNT 3.19 MIL/MM3 (4.00-5.30); RED CELL DISTRIBUTION WIDTH 19.1 % (11.6-17.2); WHITE BLOOD COUNT 9.1 TH/MM3 (4.0-11.0)
[2018-01-14 06:18] LABS: BICARBONATE 21.8 MEQ/L (21.0-32.0); CALCIUM 7.6 MG/DL (8.5-10.1); CREATININE 3.11 MG/DL (0.50-1.00); RANDOM VANCOMYCIN 16.8 COMMENT
[2018-01-14] MEDS: CARVEDILOL 12.5 MG TAB PO SCH ×2 (08:48→20:45)
[2018-01-14] MEDS: DOCUSATE SODIUM 50 MG/SENNA 8.6 MG TAB PO SCH ×2 (08:48→20:45)
[2018-01-14] MEDS: FERROUS SULFATE 325 MG (65 MG ELEMENTAL IRON) TAB PO SCH ×3 (08:48→17:30)
[2018-01-14] MEDS: cloNIDine HCL 0.1 MG TAB PO SCH ×3 (08:48→17:30)
[2018-01-14] MEDS: PRAVASTATIN SOD 20 MG TAB PO SCH (08:48)
[2018-01-14] MEDS: SODIUM CHLORIDE 0.9% FLUSH 10 ML FLUSH IV FLUSH SCH ×2 (09:00→20:44)
--- NOTE | 2018-01-14 10:47 | HHI.PR ---
Subjective Remarks Follow-up for anemia, GI bleed, ABIOLA, sepsis, UTI. The patient is awake, alert, oriented to self and place today. She denies any medical complaints including no fever/chills, headache, lightheadedness, chest pain, shortness of breath, abdominal pain, nausea/vomiting, diarrhea, or urinary complaints. However, patient is an unreliable historian. She does state that she is hungry and wants to eat breakfast. Vital signs reviewed and stable. Objective Vitals Vital Signs Date Time Temp Pulse Resp B/P (MAP) Pulse Ox O2 Delivery O2 Flow Rate FiO2 01/14/18 07:48 98.2 69 18 137/61 (86) 98 01/14/18 04:17 57 01/14/18 04:15 98.4 63 17 164/67 (99) 98 01/14/18 00:20 97.8 72 17 177/67 (103) 98 01/14/18 00:11 51 01/13/18 20:03 67 01/13/18 20:00 98.3 69 17 141/60 (87) 99 01/13/18 18:24 56 01/13/18 17:13 96.9 62 18 160/87 (111) 99 01/13/18 17:00 97.9 57 14 149/63 (91) 100 Room Air 01/13/18 16:45 54 14 135/57 (83) 100 Room Air 01/13/18 16:30 53 14 96/46 (63) 98 Room Air 01/13/18 16:15 97.9 51 14 88/40 (56) 94 Room Air 01/13/18 11:15 97.3 63 17 131/65 (87) 99 I/O 01/13/18 01/13/18 01/13/18 01/14/18 01/14/18 01/14/18 07:00 15:00 23:00 07:00 15:00 23:00 Intake Total 360 ml 410 ml 500 ml 460 ml Output Total 1300 ml 1000 ml 1350 ml Balance -940 ml -590 ml 500 ml -890 ml Intake Oral 360 ml 360 ml IV Total 100 ml 100 ml Packed Cells 400 ml Blood Product IV Normal Saline Flush 10 ml Other 400 ml Output Urine Total 1300 ml 1000 ml 1350 ml # Bowel Movements 0 0 Result Diagram: 01/14/18 0428 01/14/18 0428 Imaging Last Impressions Chest X-Ray 01/11/18 0000 Signed Impressions: Service Date/Time: Thursday, January 11, 2018 16:17 - CONCLUSION: 1. No acute cardiopulmonary disease. Shawn Gomez MD Abdomen/Pelvis CT 01/11/18 0000 Signed Impressions: Service Date/Time: Thursday, January 11, 2018 17:08 - CONCLUSION: 1. Severe bilateral hydroureteronephrosis extending to the UV junction with moderately distended bladder demonstrating moderate diffuse bladder wall thickening. Differential considerations include neurogenic bladder versus bladder outlet obstruction. 2. 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 This has apparently been previously biopsied and evaluated. 3. Single slightly prominent air-filled loop of distal jejunum. This finding is nonspecific and may reflect focal adynamic ileus. Shawn Gomez MD Objective Remarks GENERAL: Well-nourished, well-developed pleasant elderly female patient in [facility]. SKIN: Warm and dry. No rash. HEENT: Normocephalic. Atraumatic. Pupils equal and round. Mucous membranes pink and moist. CARDIOVASCULAR: Regular rate and rhythm. No murmur appreciated. RESPIRATORY: No accessory muscle use. Clear to auscultation. Breath sounds equal bilaterally. GASTROINTESTINAL: Abdomen soft, non-tender, nondistended. Normoactive bowel sounds x4. MUSCULOSKELETAL: No obvious deformities. Extremities without clubbing, cyanosis , or edema. NEUROLOGICAL: Awake and alert. No obvious cranial nerve deficits. Motor grossly within normal limits. Moving all extremities spontaneously. Normal speech. Procedures 01/13/18 -EGD by Dr. Rain showed reflux esophagitis, hiatal hernia, biopsies taken, recommended to continue pantoprazole Medications and IVs Current Medications Medications (Trade) Dose Ordered Sig/Gildardo Route Start Time Stop Time Status Last Admin Pantoprazole Sodium 80 mg/ Sodium Chloride 100 ml @ 10 mls/hr CONTINUOUS IV 01/11/18 14:45 01/14/18 02:03 (NS Flush) 2 ml UNSCH PRN IV FLUSH 01/11/18 18:45 (NS Flush) 2 ml BID IV FLUSH 01/11/18 21:00 01/14/18 09:00 (Tylenol) 650 mg Q4H PRN PO 5/20/18 18:45 (Narcan Inj) 0.4 mg UNSCH PRN IV PUSH 01/11/18 18:45 (Marisa-Colace) 1 tab BID PO 01/11/18 21:00 01/14/18 08:48 Ceftriaxone Sodium 1000 mg/ Sodium Chloride 100 ml @ 200 mls/hr Q24H IV 01/11/18 20:00 01/13/18 20:21 Sodium Bicarbonate 75 meq/Sodium Chloride 1,075 ml @ 42 mls/hr Q24H IV 01/11/18 20:00 01/11/18 22:13 (Norvasc) 10 mg DAILY PO 01/11/18 18:45 01/14/18 08:48 (Coreg) 12.5 mg BID PO 01/11/18 21:00 01/14/18 08:48 (Pravachol) 20 mg DAILY PO 01/12/18 09:00 01/14/18 08:48 (Catapres) 0.1 mg TID PO 01/12/18 13:00 01/14/18 08:48 (Ferrous Sulfate) 325 mg TIDPC PO 01/12/18 13:30 01/14/18 08:48 Lactated Ringer's 1,000 ml @ 30 mls/hr Q24H PRN IV 01/12/18 21:45 01/15/18 21:44 Sodium Chloride 500 ml @ 30 mls/hr [id number] PRN IV 01/12/18 21:45 01/15/18 21:44 (Lopressor) 25 mg CREDIT ASSOCIATE PRN PO 01/12/18 21:45 01/15/18 21:44 (Betadine 5% Antisepsis Kit) 1 applic CREDIT ASSOCIATE PRN EACH NARE 01/12/18 21:45 01/15/18 21:44 (Chlorhexidine 2% Cloth) 3 pack CREDIT ASSOCIATE PRN TOPICAL 01/12/18 21:45 01/15/18 21:44 (NovoLIN R INJ) See Protocol Table ... CREDIT ASSOCIATE PRN SQ 01/12/18 21:45 01/15/18 21:44 (Catapres) 0.1 mg Q6H PRN PO 01/13/18 08:30 Pharmacy Profile Note 0 ml @ 0 mls/hr UNSCH OTHER 01/13/18 12:15 ([facility] [place] Nursing Information) ALL NURSING DEPARTME... UNSCH PRN .XX 01/13/18 16:12 01/14/18 16:11 A/P Problem List: (1) Black stool ICD Code: K92.1 - Melena (2) Diarrhea ICD Code: R19.7 - Diarrhea, unspecified (3) Back pain ICD Code: M54.9 - Dorsalgia, unspecified (4) Poor appetite ICD Code: R63.0 - Anorexia (5) ABIOLA (acute kidney injury) ICD Code: N17.9 - Acute kidney failure, unspecified (6) Anemia ICD Code: D64.9 - Anemia, unspecified (7) UTI (urinary tract infection) ICD Code: N39.0 - Urinary tract infection, site not specified Assessment and Plan 82-year-old female with PMH of borderline DM, HTN, PVD, CAD, and pancreatic tumors who presents to the ER accompanied by daughter and stepdaughter with complaints of "not feeling good". Sepsis with Complicated UTI/Pyelonephritis/Hydronephrosis: Complaints of back pain. Meets sepsis with WBC count 18.4 with left shift, HR >90 on admission, and suspected source-UTI/pyelo. Lactic acid 2.0. -CT abd/pelvis reviewed, severe bilateral hydronephrosis extending to UV junction with moderately distended bladder demonstrating moderate diffuse bladder wall thickening. -Inserted Crowe catheter on 01/11 to monitor urine output -Urine culture with E.Coli, continue on IV Rocephin for now -Blood cultures + gram positive cocci, added IV vanco with pharmacy consult -Consulted urology, recommends continuing Crowe and antibiotics -Monitor CBC, WBC trending down, 9.1K today Possible Bacteremia: 2/4 blood cultures with gram positive cocci, possible bacteremia vs contaminant -already on IV Rocephin as above for UTI -s/p IV Vanco x1 dose -repeat blood cultures pending -consulted ID, likely contaminant, continue rocephin, no further antibiotics recommended at this time ABIOLA on CKD stage III, Metabolic Acidosis, Hypernatremia: likely secondary to dehydration/infection. Cr 4.24 upon arrival, previously 1.2 in 2009. -Patient with poor p.o. intake for the past 2 weeks with ongoing diarrhea -Given IV hydration with 1/2 NS w/bicarb at 42ml/hr; changed to 1/2 NS on -Avoid nephrotoxins -Consult nephrology, appreciate recommendations -BMP slowly improving, Cr 3.11 today, continue to monitor Anemia with Black stools/diarrhea: Hemoccult positive in the ED. H&H on admission 8.2/24.9 -Hgb dropped to 6.8, given 1u pRBC transfusion on 01/12, Hgb improved to 8.4 then dropped again to 7.2, given another 1u pRBC transfusion on 01/14. -Consult GI, s/p EGD 01/14 which showed reflux esophagitis and hiatal hernia -Continue protonix daily -Patient/family declining colonoscopy -Continue trending H&H and transfuse as needed, currently stable at 8.4 HTN/HLD: BP not well controlled -Continue amlodipine 10 mg daily and Coreg 12.5 mg twice daily -Continue pravastatin 20 mg daily -Monitor BP, adjust antihypertensives as needed -Clonidine prn DVT prophylaxis- SCD's; avoid chemical prophylaxis secondary to anemia with suspected GIB Discharge Planning Discharge pending further clinical improvement of ABIOLA, repeat blood cultures, and ID evaluation. Likely needs additional 2-3days of hospitalization. Problem Qualifiers (1) UTI (urinary tract infection): Qualified Codes: N30.00 - Acute cystitis without hematuria Rosa Bragg PA-C January 14, 2018 10:47 am
--- NOTE | 2018-01-14 10:51 | HHI.NPPN ---
Subjective History of Present Illness 82-year-old female with UTI, acute renal failure, GI bleed Objective Data Data Vital Signs Date Time Temp Pulse Resp B/P (MAP) Pulse Ox O2 Delivery O2 Flow Rate FiO2 01/14/18 07:48 98.2 69 18 137/61 (86) 98 01/14/18 04:17 57 01/14/18 04:15 98.4 63 17 164/67 (99) 98 01/14/18 00:20 97.8 72 17 177/67 (103) 98 01/14/18 00:11 51 01/13/18 20:03 67 01/13/18 20:00 98.3 69 17 141/60 (87) 99 01/13/18 18:24 56 01/13/18 17:13 96.9 62 18 160/87 (111) 99 01/13/18 17:00 97.9 57 14 149/63 (91) 100 Room Air 01/13/18 16:45 54 14 135/57 (83) 100 Room Air 01/13/18 16:30 53 14 96/46 (63) 98 Room Air 01/13/18 16:15 97.9 51 14 88/40 (56) 94 Room Air 01/13/18 11:15 97.3 63 17 131/65 (87) 99 -: 01/14/18 0428 01/14/18 0428 Microbiology 01/13/18 Aerobic Blood Culture, Received Pending 01/13/18 Anaerobic Blood Culture, Received Pending 01/13/18 Aerobic Blood Culture, Received Pending 01/13/18 Anaerobic Blood Culture, Received Pending Physical Exam General Appearance: Well Developed Neck Neck Exam: Neck Supple Pulmonary Resp Exam: Clear Bilaterally, Breath Sounds Equal Cardiology CV Exam: Regular, Normal Sinus Rhythm Gastrointestinal/Abdomen GI Exam: Soft, Non-Tender, Bowel Sounds Present Integumentary Skin Exam: Clear Extremeties Extremities Exam: Moderate Edema Assessment/Plan Problem List: (1) ABIOLA (acute kidney injury) ICD Codes: N17.9 - Acute kidney failure, unspecified Plan: Patient creatinine is declining Crowe catheter placed good UOP creatinine has declined change IV fluid to one fourth of saline as sodium 152 S/P EGD Continue with hydration Avoid nephrotoxins urological follow-up (2) UTI (urinary tract infection) ICD Codes: N39.0 - Urinary tract infection, site not specified Plan: On ceftriaxone (3) GI bleed ICD Codes: K92.2 - Gastrointestinal hemorrhage, unspecified Status: Acute Plan: Follow Hemoglobin Problem Qualifiers (1) UTI (urinary tract infection): Qualified Codes: N30.00 - Acute cystitis without hematuria (2) GI bleed: Qualified Codes: K92.2 - Gastrointestinal hemorrhage, unspecified Carlin Rob MD January 14, 2018 10:51
[2018-01-14] MEDS ORDERED: SODIUM CHLOR 0.45% 1000 ML INJ 1,000 ML IV SCH (11:00)
[2018-01-14] MEDS: SODIUM CHLORIDE 23.4% INJ 38.5 MEQ in WATER STERILE FOR INJ 1,000 ML IV SCH (12:53)
--- NOTE | 2018-01-14 14:02 | HHI.GIFU ---
Subjective Remarks Pt in bedside chair Lunch tray at bedside, states not much of an appetite Denies nausea, vomiting Denies abdominal pain No BM since EGD yesterday (Reanna Ness) Objective Vitals I&O Vital Signs Date Time Temp Pulse Resp B/P (MAP) Pulse Ox O2 Delivery O2 Flow Rate FiO2 01/14/18 11:43 98.1 65 18 149/66 (93) 98 01/14/18 07:48 98.2 69 18 137/61 (86) 98 01/14/18 04:17 57 01/14/18 04:15 98.4 63 17 164/67 (99) 98 01/14/18 00:20 97.8 72 17 177/67 (103) 98 01/14/18 00:11 51 01/13/18 20:03 67 01/13/18 20:00 98.3 69 17 141/60 (87) 99 01/13/18 18:24 56 01/13/18 17:13 96.9 62 18 160/87 (111) 99 01/13/18 17:00 97.9 57 14 149/63 (91) 100 Room Air 01/13/18 16:45 54 14 135/57 (83) 100 Room Air 01/13/18 16:30 53 14 96/46 (63) 98 Room Air 01/13/18 16:15 97.9 51 14 88/40 (56) 94 Room Air I/O 01/13/18 01/13/18 01/13/18 01/14/18 01/14/18 01/14/18 07:00 15:00 23:00 07:00 15:00 23:00 Intake Total 360 ml 410 ml 500 ml 460 ml Output Total 1300 ml 1000 ml 1350 ml Balance -940 ml -590 ml 500 ml -890 ml Intake Oral 360 ml 360 ml IV Total 100 ml 100 ml Packed Cells 400 ml Blood Product IV Normal Saline Flush 10 ml Other 400 ml Output Urine Total 1300 ml 1000 ml 1350 ml # Bowel Movements 0 0 Laboratory Laboratory Tests Test 01/14/18 04:28 White Blood Count 9.1 Red Blood Count 3.19 Hemoglobin 8.4 Hematocrit 24.5 Mean Corpuscular Volume 76.8 Mean Corpuscular Hemoglobin 26.4 Mean Corpuscular Hemoglobin Concent 34.4 Red Cell Distribution Width 19.1 Platelet Count 293 Mean Platelet Volume 8.2 Neutrophils (%) (Auto) 73.5 Lymphocytes (%) (Auto) 16.3 Monocytes (%) (Auto) 6.8 Eosinophils (%) (Auto) 3.0 Basophils (%) (Auto) 0.4 Neutrophils # (Auto) 6.7 Lymphocytes # (Auto) 1.5 Monocytes # (Auto) 0.6 Eosinophils # (Auto) 0.3 Basophils # (Auto) 0.0 CBC Comment DIFF FINAL Differential Comment Blood Urea Nitrogen 69 Creatinine 3.11 Random Glucose 93 Calcium Level 7.6 Sodium Level 152 Potassium Level 4.0 Chloride Level 120 Carbon Dioxide Level 21.8 Anion Gap 10 Estimat Glomerular Filtration Rate 17 Random Vancomycin Level 16.8 Date/Time Source Procedure Growth Status 01/13/18 12:53 Blood Peripheral Aerobic Blood Culture - Preliminary NO GROWTH IN 1 DAY Resulted 01/13/18 12:53 Blood Peripheral Anaerobic Blood Culture - Preliminary NO GROWTH IN 1 DAY Resulted 01/11/18 17:51 Urine Random Urine Urine Culture - Final Escherichia Coli Complete Imaging Last Impressions Chest X-Ray 01/11/18 0000 Signed Impressions: Service Date/Time: Thursday, January 11, 2018 16:17 - CONCLUSION: 1. No acute cardiopulmonary disease. Shawn Gomez MD Abdomen/Pelvis CT 01/11/18 0000 Signed Impressions: Service Date/Time: Thursday, January 11, 2018 17:08 - CONCLUSION: 1. Severe bilateral hydroureteronephrosis extending to the UV junction with moderately distended bladder demonstrating moderate diffuse bladder wall thickening. Differential considerations include neurogenic bladder versus bladder outlet obstruction. 2. 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 This has apparently been previously biopsied and evaluated. 3. Single slightly prominent air-filled loop of distal jejunum. This finding is nonspecific and may reflect focal adynamic ileus. Shawn Gomez MD Physical Exam HEENT: Normocephalic; atraumatic CHEST: Even/unlabored CARDIAC: RRR ABDOMEN: Soft, nondistended, nontender; bowel sounds active SKIN: Normal; no rash; no jaundice. GYNECOLOGICAL ASSISTANT: Awake, answers questions appropriately (Reanna Ness) Assessment and Plan Plan ASSESSMENT - anemia, heme pos stool, questionable melena - report of black tarry stool, loose stool.poss UGIB. hgb 8.2 on admission and has dropped to 6.8. had colonoscopy 2009, finding polyps. limited hx. d/w pts daughter who is agreeable to proceed with EGD. Daughter would like to avoid colonoscopy if possible, does not think her mother will cooperate with bowel prep. Based on my assessment, would agree with that as pt was uncooperative. (01/14) Pt has not eaten much of her lunch tray, states poor appetite. No other GI complaints at this time. No BM documented since EGD yesterday. H/H stable overnight, pt received 1 U PRBCs yesterday. H/H currently 8.4/24.5 EGD (01/13) --> Reflux esophagitis, hiatal hernia. PLAN - Monitor H/H - Notify GI if any continued bleeding - DC Protonix gtt, switch to PO Protonix - EGD biopsy pending - Pt likely noncompliant with prep for colonoscopy and her daughter would like to avoid - At this time, H/H stable and no further reports of melena, our service will sign off - Have pt follow up with GI after discharge Pt has been seen and examined by myself and Dr. Rain and this note is written on his behalf (Reanna Ness) Physician Comments Patient seen and examined Agree with above Continue with current supportive care Monitor labs Not much to add from a GI perspective at this point we will sign off Follow-up with GI post discharge (Harpal Rain MD) Reanna Ness January 14, 2018 14:01 Harpal Rain MD January 14, 2018 20:36
--- NOTE | 2018-01-14 15:28 | HHI.IDPN ---
Note Infectious Disease Note Patient feels well. She is sitting up in a chair. Afebrile. The blood culture of 01/11 has staph epi. She denies chills. Consult requested for positive blood culture and UTI. PAST MEDICAL HISTORY: Hypertension, borderline diabetes, peripheral vascular disease, coronary artery disease, history of pancreatic mass. ALLERGIES: NO KNOWN DRUG ALLERGIES. Current Medications Medications (Trade) Dose Ordered Sig/Gildardo Route PRN Reason Start Time Stop Time Status Last Admin Dose Admin Sodium Chloride (NS Flush) 2 ml UNSCH PRN IV FLUSH FLUSH AFTER USING IV ACCESS 01/11/18 18:45 Sodium Chloride (NS Flush) 2 ml BID IV FLUSH 01/11/18 21:00 01/14/18 09:00 Acetaminophen (Tylenol) 650 mg Q4H PRN PO TEMP > 100.4 01/11/18 18:45 Naloxone HCl (Narcan Inj) 0.4 mg UNSCH PRN IV PUSH SEE LABEL COMMENTS 01/11/18 18:45 Senna/Docusate Sodium (Marisa-Colace) 1 tab BID PO 01/11/18 21:00 01/14/18 08:48 Ceftriaxone Sodium 1000 mg/ Sodium Chloride 100 ml @ 200 mls/hr Q24H IV 01/11/18 20:00 01/13/18 20:21 Amlodipine Besylate (Norvasc) 10 mg DAILY PO 01/11/18 18:45 01/14/18 08:48 Carvedilol (Coreg) 12.5 mg BID PO 01/11/18 21:00 01/14/18 08:48 Pravastatin Sodium (Pravachol) 20 mg DAILY PO 01/12/18 09:00 01/14/18 08:48 Clonidine (Catapres) 0.1 mg TID PO 01/12/18 13:00 01/14/18 12:53 Ferrous Sulfate (Ferrous Sulfate) 325 mg TIDPC PO 01/12/18 13:30 01/14/18 12:52 Lactated Ringer's 1,000 ml @ 30 mls/hr Q24H PRN IV SEE LABEL COMMENTS 01/12/18 21:45 01/15/18 21:44 Sodium Chloride 500 ml @ 30 mls/hr [id number] PRN IV SEE LABEL COMMENTS 01/12/18 21:45 01/15/18 21:44 Metoprolol Tartrate (Lopressor) 25 mg [employer] PRN PO SEE LABEL COMMENTS 01/12/18 21:45 01/15/18 21:44 Povidone Iodine (Betadine 5% Antisepsis Kit) 1 applic [employer] PRN EACH NARE SEE LABEL COMMENTS 01/12/18 21:45 01/15/18 21:44 Chlorhexidine Gluconate (Chlorhexidine 2% Cloth) 3 pack [employer] PRN TOPICAL SEE LABEL COMMENTS 01/12/18 21:45 01/15/18 21:44 Insulin Human Regular (NovoLIN R INJ) See Protocol Table ... [employer] PRN SQ SEE PROTOCOL TABLE 01/12/18 21:45 01/15/18 21:44 Clonidine (Catapres) 0.1 mg Q6H PRN PO SBP> OR = 180, DBP> OR = 100 01/13/18 08:30 Miscellaneous Information [place] [place] ALL NURSING DEPARTME... UNSCH PRN .XX SEE LABEL COMMENTS 01/13/18 16:12 01/14/18 16:11 Sodium Chloride 38.5 meq/Sterile Water 1,009.625 ml @ 42 mls/hr Q24H IV 01/14/18 13:00 01/14/18 12:53 Pantoprazole Sodium (Protonix) 40 mg Q12HR PO 01/14/18 21:00 SOCIAL HISTORY: No tobacco, no alcohol, no illicit drugs. FAMILY HISTORY: Noncontributory. Objective Vital Signs Date Time Temp Pulse Resp B/P (MAP) Pulse Ox O2 Delivery O2 Flow Rate FiO2 01/14/18 11:43 98.1 65 18 149/66 (93) 98 01/14/18 07:48 98.2 69 18 137/61 (86) 98 01/14/18 04:17 57 01/14/18 04:15 98.4 63 17 164/67 (99) 98 01/14/18 00:20 97.8 72 17 177/67 (103) 98 01/14/18 00:11 51 01/13/18 20:03 67 01/13/18 20:00 98.3 69 17 141/60 (87) 99 01/13/18 18:24 56 01/13/18 17:13 96.9 62 18 160/87 (111) 99 01/13/18 17:00 97.9 57 14 149/63 (91) 100 Room Air 01/13/18 16:45 54 14 135/57 (83) 100 Room Air 01/13/18 16:30 53 14 96/46 (63) 98 Room Air 01/13/18 16:15 97.9 51 14 88/40 (56) 94 Room Air Laboratory Tests Test 01/12/18 18:47 01/13/18 04:18 01/14/18 04:28 Hemoglobin 8.4 GM/DL 7.2 GM/DL 8.4 GM/DL Hematocrit 25.0 % 21.4 % 24.5 % White Blood Count 12.4 TH/MM3 9.1 TH/MM3 Red Blood Count 2.84 MIL/MM3 3.19 MIL/MM3 Mean Corpuscular Volume 75.4 FL 76.8 FL Mean Corpuscular Hemoglobin 25.3 PG 26.4 PG Mean Corpuscular Hemoglobin Concent 33.6 % 34.4 % Red Cell Distribution Width 18.7 % 19.1 % Platelet Count 322 TH/MM3 293 TH/MM3 Mean Platelet Volume 7.8 FL 8.2 FL Neutrophils (%) (Auto) 79.1 % 73.5 % Lymphocytes (%) (Auto) 13.3 % 16.3 % Monocytes (%) (Auto) 5.0 % 6.8 % Eosinophils (%) (Auto) 2.3 % 3.0 % Basophils (%) (Auto) 0.3 % 0.4 % Neutrophils # (Auto) 9.8 TH/MM3 6.7 TH/MM3 Lymphocytes # (Auto) 1.7 TH/MM3 1.5 TH/MM3 Monocytes # (Auto) 0.6 TH/MM3 0.6 TH/MM3 Eosinophils # (Auto) 0.3 TH/MM3 0.3 TH/MM3 Basophils # (Auto) 0.0 TH/MM3 0.0 TH/MM3 CBC Comment DIFF FINAL DIFF FINAL Differential Comment Laboratory Tests Test 01/13/18 04:18 01/13/18 12:53 01/14/18 04:28 Blood Urea Nitrogen 93 MG/DL 69 MG/DL Creatinine 3.76 MG/DL 3.11 MG/DL Random Glucose 98 MG/DL 93 MG/DL Total Protein 6.2 GM/DL Albumin 1.9 GM/DL Calcium Level 7.8 MG/DL 7.6 MG/DL Phosphorus Level 3.8 MG/DL Magnesium Level 2.1 MG/DL Alkaline Phosphatase 59 U/L Aspartate Amino Transf (AST/SGOT) 12 U/L Alanine Aminotransferase (ALT/SGPT) 12 U/L Total Bilirubin 0.2 MG/DL Sodium Level 151 MEQ/L 152 MEQ/L Potassium Level 4.2 MEQ/L 4.0 MEQ/L Chloride Level 118 MEQ/L 120 MEQ/L Carbon Dioxide Level 20.0 MEQ/L 21.8 MEQ/L Anion Gap 13 MEQ/L 10 MEQ/L Estimat Glomerular Filtration Rate 14 ML/MIN 17 ML/MIN Hemoglobin A1c 5.8 % Free Thyroxine 1.22 NG/DL Thyroid Stimulating Hormone 3rd Gen 0.495 uIU/ML Lactic Acid Level 1.3 mmol/L Microbiology Date/Time Source Procedure Growth Status 01/13/18 12:53 Blood Peripheral Aerobic Blood Culture - Preliminary NO GROWTH IN 1 DAY Resulted 01/13/18 12:53 Blood Peripheral Anaerobic Blood Culture - Preliminary NO GROWTH IN 1 DAY Resulted 01/13/18 11:49 Blood Peripheral Aerobic Blood Culture - Preliminary NO GROWTH IN 1 DAY Resulted 01/13/18 11:49 Blood Peripheral Anaerobic Blood Culture - Preliminary NO GROWTH IN 1 DAY Resulted 01/11/18 20:08 Blood Peripheral Aerobic Blood Culture - Preliminary NO GROWTH IN 3 DAYS Resulted 01/11/18 20:08 Blood Peripheral Anaerobic Blood Culture - Preliminary NO GROWTH IN 3 DAYS Resulted 01/11/18 20:08 Blood Peripheral Aerobic Blood Culture - Preliminary Gram Positive Cocci Resulted 01/11/18 20:08 Anaerobic Blood Culture - Final Staph Sp Coagulase Negative Resulted 01/11/18 17:51 Urine Random Urine Urine Culture - Final Escherichia Coli Complete PHYSICAL EXAMINATION: GENERAL: No acute distress. Patient is awake and alert. HEENT: Head: Atraumatic. Extraocular movements grossly intact. Pupils reactive to light. No icterus. Oropharynx: Moist mucosa. No lesions. NECK: Supple without adenopathy. LUNGS: Clear breath sounds. HEART: Regular S1, S2, without murmurs, rubs or gallops. ABDOMEN: Positive bowel sounds. Soft, no tenderness. EXTREMITIES: No clubbing or cyanosis. 2+ edema, diffuse. SKIN: No rash. NEUROLOGIC: No gross focal findings. PSYCHIATRIC: Calm, cooperative. IMPRESSION: 1. Urinary tract infection due to Escherichia coli. 2. Bacteremia due to gram-positive bacteria. Staph epi identified in 1 bottle. I think this is contamination. 3. Acute on chronic kidney disease. RECOMMENDATIONS: 1. Can switch the ceftriaxone to oral cefuroxime for the UTI. 2. Discontinue vancomycin. Patient has a Crowe catheter in place. If this can be removed I recommend removing it. If not the urine culture can be repeated to see if it is clear. Patient can be discharged from ID standpoint. I will sign off now. Octavio Choudhury MD January 14, 2018 15:28
[2018-01-14] MEDS: cefTRIAXone INJ 1,000 MG in SODIUM CHLORIDE 0.9% INJ 100 ML IV SCH (20:44)
[2018-01-14] MEDS: PANTOPRAZOLE SOD 40 MG DELAYED RELEASE TAB PO SCH (20:45)
[2018-01-15] VITALS (13 sets, daily range): BP systolic 127–202; BP diastolic 53–86; PULSE 60–75; RESP 18–21; TEMP 96.7–99; O2SAT 96–100
[2018-01-15 05:12] LABS: AUTOMATED NEUTROPHIL # 7.8 TH/MM3 (1.8-7.7); BASOPHIL % 0.4 % (0.0-2.0); EOSINOPHIL # 0.3 TH/MM3 (0-0.4); EOSINOPHIL % 2.4 % (0.0-4.0); HEMOGLOBIN 7.8 GM/DL (11.6-15.3); LYMPH % 19.7 % (9.0-44.0); LYMPHOCYTE # 2.2 TH/MM3 (1.0-4.8); MEAN CELL VOLUME 77.3 FL (80.0-100.0); MEAN CORPUSCULAR HEMOGLOBIN 25.1 PG (27.0-34.0); MEAN CORPUSCULAR HGB CONC 32.5 % (32.0-36.0); MONO % 7.3 % (0.0-8.0); MONOCYTE # 0.8 TH/MM3 (0-0.9); NEUT % 70.2 % (16.0-70.0); PLATELET COUNT 263 TH/MM3 (150-450); RED BLOOD COUNT 3.11 MIL/MM3 (4.00-5.30); WHITE BLOOD COUNT 11.1 TH/MM3 (4.0-11.0)
[2018-01-15 05:37] LABS: BICARBONATE 24.2 MEQ/L (21.0-32.0); CALCIUM 7.3 MG/DL (8.5-10.1); CREATININE 2.81 MG/DL (0.50-1.00)
[2018-01-15 05:52] LABS: CALCIUM-PROTEIN CORRECTED 7.8 MG/DL (8.5-10.1); TOTAL PROTEIN 6.1 GM/DL (6.4-8.2)
[2018-01-15] MEDS: FERROUS SULFATE 325 MG (65 MG ELEMENTAL IRON) TAB PO SCH ×3 (09:02→18:36)
[2018-01-15] MEDS: PANTOPRAZOLE SOD 40 MG DELAYED RELEASE TAB PO SCH ×2 (09:02→20:57)
[2018-01-15] MEDS: PRAVASTATIN SOD 20 MG TAB PO SCH (09:02)
[2018-01-15] MEDS: CARVEDILOL 12.5 MG TAB PO SCH ×2 (09:02→20:57)
[2018-01-15] MEDS: DOCUSATE SODIUM 50 MG/SENNA 8.6 MG TAB PO SCH ×2 (09:02→20:57)
[2018-01-15] MEDS: cloNIDine HCL 0.1 MG TAB PO SCH ×3 (09:02→18:36)
[2018-01-15] MEDS: SODIUM CHLORIDE 0.9% FLUSH 10 ML FLUSH IV FLUSH SCH ×2 (09:08→20:58)
[2018-01-15] MEDS ORDERED: POTASSIUM CHLORIDE 25 MEQ EFFERVESCENT TAB PO ONE (10:00)
[2018-01-15] MEDS ORDERED: SODIUM CHLOR 0.9% 250 ML INJ 250 ML IV ONE (10:00)
[2018-01-15] MEDS ORDERED: ACETAMINOPHEN 325 MG TAB PO PRN (10:00)
[2018-01-15] MEDS ORDERED: FUROSEMIDE 20 MG/2 ML VIAL IV PUSH ONE (10:00)
[2018-01-15] MEDS ORDERED: diphenhydrAMINE HCL 25 MG CAP PO PRN (10:00)
--- NOTE | 2018-01-15 10:00 | HHI.PR ---
Subjective Remarks 82-year-old female with PMH of borderline DM, HTN, PVD, CAD, and pancreatic tumors who presents to the ER accompanied by daughter and stepdaughter with complaints of "not feeling good". Patient currently lives with son and daughters who are at bedside reports that for the past 2 weeks patient's appetite has decreased and she has not been eating hardly anything. Patient is also been noted to have some nausea but no vomiting. Daughters report diarrhea and black stool. Denies abdominal pain, SOB, or cough. Patient does complain of back pain no reported dysuria. Daughter also states that patient has not taken her antihypertensive for the past week. She has been living with son and ambulates with a walker. Patient has history of peripheral vascular disease with on and off swelling of bilateral lower extremities but has refused treatment in the past per daughter's. 5-21 patient states it is that she has been seen by urologist. There is a urology note in the chart she cannot tell me much more other than No current complaints No shortness of breath no chest pain no nausea or vomiting Discussed with patient and RN and case management Await GI and nephrology evaluation 522 Follow-up for anemia, GI bleed, AIBOLA, sepsis with UTI. Patient seen with her stepdaughter at bedside. The patient has no medical complaints including no headache, lightheadedness, dizziness, chest pain, shortness of breath, abdominal pain, nausea/vomiting. No fevers or chills overnight. Denies any urinary complaints. Hemoglobin dropped to 7.2 today, patient and stepdaughter agrees to blood transfusion. Patient going for EGD today. 523 Follow-up for anemia, GI bleed, ABIOLA, sepsis, UTI. The patient is awake, alert, oriented to self and place today. She denies any medical complaints including no fever/chills, headache, lightheadedness, chest pain, shortness of breath, abdominal pain, nausea/vomiting, diarrhea, or urinary complaints. However, patient is an unreliable historian. She does state that she is hungry and wants to eat breakfast. Vital signs reviewed and stable. 5-24 WILL TRANSFUSE 2 UNITS PRBC TODAY WOULD CONSIDER COLONOSCOPY DW RN AND PT Objective Vitals Vital Signs Date Time Temp Pulse Resp B/P (MAP) Pulse Ox O2 Delivery O2 Flow Rate FiO2 01/15/18 07:46 98.8 71 19 139/57 (84) 96 01/15/18 04:00 98.1 69 20 188/75 (112) 96 01/15/18 00:00 99.0 75 21 100 01/14/18 20:00 98.9 74 20 151/79 (103) 99 01/14/18 15:36 97.8 73 18 132/58 (82) 100 01/14/18 11:43 98.1 65 18 149/66 (93) 98 I/O 01/14/18 01/14/18 01/14/18 01/15/18 01/15/18 01/15/18 07:00 15:00 23:00 07:00 15:00 23:00 Intake Total 460 ml 800 ml 100 ml 480 ml Output Total 1350 ml 800 ml 500 ml Balance -890 ml 0 ml 100 ml -20 ml Intake Oral 360 ml 800 ml 480 ml IV Total 100 ml 100 ml Output Urine Total 1350 ml 800 ml 500 ml # Bowel Movements 0 Result Diagram: 01/15/18 0404 01/15/18 0404 Other Results Laboratory Tests Test 01/12/18 18:47 01/13/18 04:18 01/13/18 12:53 01/14/18 04:28 Hemoglobin 8.4 GM/DL 7.2 GM/DL 8.4 GM/DL Hematocrit 25.0 % 21.4 % 24.5 % White Blood Count 12.4 TH/MM3 9.1 TH/MM3 Red Blood Count 2.84 MIL/MM3 3.19 MIL/MM3 Mean Corpuscular Volume 75.4 FL 76.8 FL Mean Corpuscular Hemoglobin 25.3 PG 26.4 PG Mean Corpuscular Hemoglobin Concent 33.6 % 34.4 % Red Cell Distribution Width 18.7 % 19.1 % Platelet Count 322 TH/MM3 293 TH/MM3 Mean Platelet Volume 7.8 FL 8.2 FL Neutrophils (%) (Auto) 79.1 % 73.5 % Lymphocytes (%) (Auto) 13.3 % 16.3 % Monocytes (%) (Auto) 5.0 % 6.8 % Eosinophils (%) (Auto) 2.3 % 3.0 % Basophils (%) (Auto) 0.3 % 0.4 % Neutrophils # (Auto) 9.8 TH/MM3 6.7 TH/MM3 Lymphocytes # (Auto) 1.7 TH/MM3 1.5 TH/MM3 Monocytes # (Auto) 0.6 TH/MM3 0.6 TH/MM3 Eosinophils # (Auto) 0.3 TH/MM3 0.3 TH/MM3 Basophils # (Auto) 0.0 TH/MM3 0.0 TH/MM3 CBC Comment DIFF FINAL DIFF FINAL Differential Comment Blood Urea Nitrogen 93 MG/DL 69 MG/DL Creatinine 3.76 MG/DL 3.11 MG/DL Random Glucose 98 MG/DL 93 MG/DL Total Protein 6.2 GM/DL Albumin 1.9 GM/DL Calcium Level 7.8 MG/DL 7.6 MG/DL Phosphorus Level 3.8 MG/DL Magnesium Level 2.1 MG/DL Alkaline Phosphatase 59 U/L Aspartate Amino Transf (AST/SGOT) 12 U/L Alanine Aminotransferase (ALT/SGPT) 12 U/L Total Bilirubin 0.2 MG/DL Sodium Level 151 MEQ/L 152 MEQ/L Potassium Level 4.2 MEQ/L 4.0 MEQ/L Chloride Level 118 MEQ/L 120 MEQ/L Carbon Dioxide Level 20.0 MEQ/L 21.8 MEQ/L Anion Gap 13 MEQ/L 10 MEQ/L Estimat Glomerular Filtration Rate 14 ML/MIN 17 ML/MIN Hemoglobin A1c 5.8 % Free Thyroxine 1.22 NG/DL Thyroid Stimulating Hormone 3rd Gen 0.495 uIU/ML Lactic Acid Level 1.3 mmol/L Random Vancomycin Level 16.8 COMMENT Test 01/15/18 04:04 White Blood Count 11.1 TH/MM3 Red Blood Count 3.11 MIL/MM3 Hemoglobin 7.8 GM/DL Hematocrit 24.0 % Mean Corpuscular Volume 77.3 FL Mean Corpuscular Hemoglobin 25.1 PG Mean Corpuscular Hemoglobin Concent 32.5 % Red Cell Distribution Width 19.0 % Platelet Count 263 TH/MM3 Mean Platelet Volume 8.0 FL Neutrophils (%) (Auto) 70.2 % Lymphocytes (%) (Auto) 19.7 % Monocytes (%) (Auto) 7.3 % Eosinophils (%) (Auto) 2.4 % Basophils (%) (Auto) 0.4 % Neutrophils # (Auto) 7.8 TH/MM3 Lymphocytes # (Auto) 2.2 TH/MM3 Monocytes # (Auto) 0.8 TH/MM3 Eosinophils # (Auto) 0.3 TH/MM3 Basophils # (Auto) 0.0 TH/MM3 CBC Comment AUTO DIFF Differential Comment AUTO DIFF CONFIRMED Blood Urea Nitrogen 50 MG/DL Creatinine 2.81 MG/DL Random Glucose 93 MG/DL Total Protein 6.1 GM/DL Calcium Level 7.3 MG/DL Sodium Level 150 MEQ/L Potassium Level 3.5 MEQ/L Chloride Level 115 MEQ/L Carbon Dioxide Level 24.2 MEQ/L Anion Gap 11 MEQ/L Estimat Glomerular Filtration Rate 19 ML/MIN Protein Corrected Calcium 7.8 MG/DL Imaging Last Impressions Chest X-Ray 01/11/18 0000 Signed Impressions: Service Date/Time: Thursday, January 11, 2018 16:17 - CONCLUSION: 1. No acute cardiopulmonary disease. Shawn Gomez MD Abdomen/Pelvis CT 01/11/18 0000 Signed Impressions: Service Date/Time: Thursday, January 11, 2018 17:08 - CONCLUSION: 1. Severe bilateral hydroureteronephrosis extending to the UV junction with moderately distended bladder demonstrating moderate diffuse bladder wall thickening. Differential considerations include neurogenic bladder versus bladder outlet obstruction. 2. 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 This has apparently been previously biopsied and evaluated. 3. Single slightly prominent air-filled loop of distal jejunum. This finding is nonspecific and may reflect focal adynamic ileus. Shawn Gomez MD Objective Remarks GENERAL: AWAKE AND ALERT AND ORIENTED X1 TO 2 DW PATIENT AND DAUGHTER-IN LAW SKIN: Warm and dry. HEAD: Atraumatic. Normocephalic. EYES: Pupils equal and round. No scleral icterus. No injection or drainage. EOMI ENT: No nasal bleeding or discharge. Mucous membranes pink and moist. TONGUE MIDLINE NECK: Trachea midline. No JVD. CARDIOVASCULAR: Regular rate and rhythm. S1, S2 NO S3 OR S4 RESPIRATORY: No accessory muscle use. Clear to auscultation. Breath sounds equal bilaterally. GASTROINTESTINAL: Abdomen soft, non-tender, nondistended. Hepatic and splenic margins not palpable. MUSCULOSKELETAL: Extremities without clubbing, cyanosis, CHRONIC LYMPHEDEMA BL LE . No obvious deformities. NEUROLOGICAL: Awake and alert. No obvious cranial nerve deficits. Motor grossly within normal limits. 4 out of 5 muscle strength in the arms and legs. Normal speech. PSYCHIATRIC: INAppropriate mood and affect; insight and judgment ABnormal. Procedures 01/13/18 -EGD by Dr. Rain showed reflux esophagitis, hiatal hernia, biopsies taken, recommended to continue pantoprazole Medications and IVs Current Medications Sodium Chloride (NS Flush) 2 ml UNSCH PRN IV FLUSH FLUSH AFTER USING IV ACCESS ; Start 01/11/18 at 14:45; Stop 01/12/18 at 21:45; Status DC Pantoprazole Sodium 80 mg/ Sodium Chloride 100 ml @ 10 mls/hr CONTINUOUS IV Last administered on 01/14/18at 12:53; Start 01/11/18 at 14:45; Stop 01/14/18 at 14:02; Status DC Pantoprazole Sodium 80 mg/ Sodium Chloride 35 ml @ 420 mls/hr BOLUS ONCE IV Last administered on 01/11/18at 15:58; Start 01/11/18 at 14:45; Stop 01/11/18 at 14:49; Status DC Sodium Chloride 500 ml @ 500 mls/hr BOLUS ONCE IV Last administered on at 15:58; Start 01/11/18 at 14:45; Stop 01/11/18 at 15:44; Status DC Sodium Chloride 1,000 ml @ 999 mls/hr BOLUS ONCE IV Last administered on 01/11at 15:45; Start 01/11/18 at 15:45; Stop 01/11/18 at 16:45; Status DC Sodium Chloride (NS Flush) 2 ml UNSCH PRN IV FLUSH FLUSH AFTER USING IV ACCESS ; Start 01/11/18 at 18:45 Sodium Chloride (NS Flush) 2 ml BID IV FLUSH Last administered on 01/15/18at 09: 08; Start 01/11/18 at 21:00 Acetaminophen (Tylenol) 650 mg Q4H PRN PO TEMP > 100.4; Start 01/11/18 at 18:45 Naloxone HCl (Narcan Inj) 0.4 mg UNSCH PRN IV PUSH SEE LABEL COMMENTS; Start at 18:45 Senna/Docusate Sodium (Marisa-Colace) 1 tab BID PO Last administered on at 09:02; Start 01/11/18 at 21:00 Ceftriaxone Sodium 1000 mg/ Sodium Chloride 100 ml @ 200 mls/hr Q24H IV Last administered on 01/14/18at 20:44; Start 01/11/18 at 20:00 Sodium Bicarbonate 75 meq/Sodium Chloride 1,075 ml @ 42 mls/hr Q24H IV Last administered on 01/11/18at 22:13; Start 01/11/18 at 20:00; Stop 01/14/18 at 10:35 ; Status DC Amlodipine Besylate (Norvasc) 10 mg DAILY PO Last administered on 01/15/18at 09: 02; Start 01/11/18 at 18:45 Carvedilol (Coreg) 12.5 mg BID PO Last administered on 01/15/18at 09:02; Start 01/11/18 at 21:00 Pravastatin Sodium (Pravachol) 20 mg DAILY PO Last administered on 01/15/18at 09 :02; Start 01/12/18 at 09:00 Sodium Chloride 250 ml @ 15 mls/hr ONCE ONCE IV Last administered on at 05:00; Start 01/12/18 at 05:00; Stop 01/12/18 at 21:39; Status DC Furosemide (Lasix Inj) 20 mg ONCE ONCE IV PUSH Last administered on 01/12/18at 17:16; Start 01/12/18 at 05:00; Stop 01/12/18 at 05:01; Status DC Clonidine (Catapres) 0.1 mg TID PO Last administered on 01/15/18at 09:02; Start 01/12/18 at 13:00 Ferrous Sulfate (Ferrous Sulfate) 325 mg TIDPC PO Last administered on at 09:02; Start 01/12/18 at 13:30 Lactated Ringer's 1,000 ml @ 30 mls/hr Q24H PRN IV SEE LABEL COMMENTS; Start at 21:45; Stop 01/15/18 at 21:44 Sodium Chloride 500 ml @ 30 mls/hr [id number] PRN IV SEE LABEL COMMENTS; Start at 21:45; Stop 01/15/18 at 21:44 Metoprolol Tartrate (Lopressor) 25 mg [employer] PRN PO SEE LABEL COMMENTS; Start 01/12/18 at 21:45; Stop 01/15/18 at 21:44 Povidone Iodine (Betadine 5% Antisepsis Kit) 1 applic [employer] PRN EACH NARE SEE LABEL COMMENTS; Start 01/12/18 at 21:45; Stop 01/15/18 at 21:44 Chlorhexidine Gluconate (Chlorhexidine 2% Cloth) 3 pack [employer] PRN TOPICAL SEE LABEL COMMENTS; Start 01/12/18 at 21:45; Stop 01/15/18 at 21:44 Insulin Human Regular (NovoLIN R INJ) See Protocol Table ... B[employer] PRN SQ SEE PROTOCOL TABLE; Start 01/12/18 at 21:45; Stop 01/15/18 at 21:44 Sodium Chloride 250 ml @ 15 mls/hr ONCE ONCE IV Last administered on at 07:45; Start 01/13/18 at 07:45; Stop 01/14/18 at 00:24; Status DC Clonidine (Catapres) 0.1 mg Q6H PRN PO SBP> OR = 180, DBP> OR = 100; Start at 08:30 Pharmacy Profile Note 0 ml @ 0 mls/hr UNSCH OTHER ; Start 01/13/18 at 12:15; Stop 01/14/18 at 12:18; Status DC Vancomycin HCl 1500 mg/Sodium Chloride 515 ml @ 257.5 mls/ hr ONCE ONCE IV Last administered on 01/13/18at 17:16; Start 01/13/18 at 15:00; Stop 01/13/18 at 16:59; Status DC Miscellaneous Information ([facility] [place] [facility] Information) ALL NURSING DEPARTME... UNSCH PRN .XX SEE LABEL COMMENTS; Start 01/13/18 at 16:12; Stop 01/14/18 at 16: 11; Status DC Sodium Chloride 1,000 ml @ 42 mls/hr [id number] IV ; Start 01/14/18 at 11:00; Stop 01/14/18 at 11:00; Status DC Sodium Chloride 38.5 meq/Sterile Water 1,009.625 ml @ 42 mls/hr Q24H IV Last administered on 01/14/18at 12:53; Start 01/14/18 at 13:00 Pantoprazole Sodium (Protonix) 40 mg Q12HR PO Last administered on 01/15/18at 09 :02; Start 01/14/18 at 21:00 A/P Problem List: (1) Black stool ICD Code: K92.1 - Melena (2) Diarrhea ICD Code: R19.7 - Diarrhea, unspecified (3) Back pain ICD Code: M54.9 - Dorsalgia, unspecified (4) Poor appetite ICD Code: R63.0 - Anorexia (5) ABIOLA (acute kidney injury) ICD Code: N17.9 - Acute kidney failure, unspecified (6) Anemia ICD Code: D64.9 - Anemia, unspecified (7) UTI (urinary tract infection) ICD Code: N39.0 - Urinary tract infection, site not specified (8) Gait instability ICD Code: R26.81 - Unsteadiness on feet (9) Generalized weakness ICD Code: R53.1 - Weakness (10) GI bleed ICD Code: K92.2 - Gastrointestinal hemorrhage, unspecified Status: Acute Assessment and Plan 82-year-old female with PMH of borderline DM, HTN, PVD, CAD, and pancreatic tumors who presents to the ER accompanied by daughter and stepdaughter with complaints of "not feeling good". Sepsis with Complicated UTI/Pyelonephritis/Hydronephrosis: Complaints of back pain. Meets sepsis with WBC count 18.4 with left shift, HR >90 on admission, and suspected source-UTI/pyelo. Lactic acid 2.0. -CT abd/pelvis reviewed, severe bilateral hydronephrosis extending to UV junction with moderately distended bladder demonstrating moderate diffuse bladder wall thickening. -Inserted Crowe catheter on 01/11 to monitor urine output -Urine culture with E.Coli, continue on IV Rocephin for now -Blood cultures + gram positive cocci, added IV vanco with pharmacy consult -Consulted urology, recommends continuing Crowe and antibiotics -Monitor CBC, WBC trending down, 9.1K today Possible Bacteremia: 2/4 blood cultures with gram positive cocci, possible bacteremia vs contaminant -already on IV Rocephin as above for UTI -s/p IV Vanco x1 dose -repeat blood cultures pending -consulted ID, likely contaminant, continue rocephin, no further antibiotics recommended at this time- PER ID ABIOLA on CKD stage III, Metabolic Acidosis, Hypernatremia: likely secondary to dehydration/infection. Cr 4.24 upon arrival, previously 1.2 in 2009. -Patient with poor p.o. intake for the past 2 weeks with ongoing diarrhea -Given IV hydration with 1/2 NS w/bicarb at 42ml/hr; changed to 1/2 NS on -Avoid nephrotoxins -Consult nephrology, appreciate recommendations -BMP slowly improving, Cr 3.11 today, continue to monitor SLOW IMPROVEMENT Anemia with Black stools/diarrhea: Hemoccult positive in the ED. H&H on admission 8.2/24.9 -Hgb dropped to 6.8, given 1u pRBC transfusion on 01/12, Hgb improved to 8.4 then dropped again to 7.2, given another 1u pRBC transfusion on 01/14. -Consult GI, s/p EGD 01/14 which showed reflux esophagitis and hiatal hernia -Continue protonix daily -Patient/family declining colonoscopy -Continue trending H&H and transfuse as needed, currently stable at 7.8 TRANSFUSE 2 UNITS PRBC HTN/HLD: BP not well controlled -Continue amlodipine 10 mg daily and Coreg 12.5 mg twice daily -Continue pravastatin 20 mg daily -Monitor BP, adjust antihypertensives as needed -Clonidine prn DVT prophylaxis- SCD's; avoid chemical prophylaxis secondary to anemia with suspected GIB Discharge Planning TRANSFUSE IF STABLE HGB THEN DC TO HOME TOMORROW Problem Qualifiers (1) UTI (urinary tract infection): Qualified Codes: N30.00 - Acute cystitis without hematuria (2) GI bleed: Qualified Codes: K92.2 - Gastrointestinal hemorrhage, unspecified Rock Lorenzo DO January 15, 2018 10:00
[2018-01-15] MEDS: SODIUM CHLORIDE 23.4% INJ 38.5 MEQ in WATER STERILE FOR INJ 1,000 ML IV SCH (13:00)
--- NOTE | 2018-01-15 15:47 | PD.CONS ---
HPI History of Present Illness This is a 82 year old F with PMH significant for DM, HTN, PVD, CAD and pancreatic tumors who presented to the ER with complaints of note feeling well. Our service was consulted earlier on in the patient's admission for reports of black stools, decreased appetite, and anemia. At the time, patients daughter who is the POA was concerned that the patient would not tolerate a prep for the colonoscopy and therefore only an EGD was done which revealed reflux esophagitis and hiatal hernia. Our service signed off, we have been reconsulted because patients hemoglobin has been trending down despite 2 U of PRBCs since admission, last transfused on January 13. Pt is a poor historian and unable to provide much history. She states she has had a small BM today and yesterday, there is no documentation of stool in the chart. Spoke with her daughter Rocio on the phone and she would like to proceed with colonoscopy to further evaluate for anemia. (Reanna Ness) PFSH Past Medical History DM HTN PVD CAD Hx pancreatic tumors, were told these were normal Past Surgical History Denies past surgical history other than pancreatic biopsies. EGD (Reanna Ness) Coded Allergies: No Known Allergies (Verified Allergy, Unknown, 01/11/18) Family History PFH: DM, HTN Social History Tobacco: denies Alcohol:denies Illicit drug use: denies Ambulates with a walker, lives with son. (Reanna Ness) Review of Systems Gastrointestinal: COMPLAINS OF: Constipation, DENIES: Abdominal pain, Nausea, Vomiting, Heartburn (Reanna Ness) GI Exam Vitals I&O Vital Signs Date Time Temp Pulse Resp B/P (MAP) Pulse Ox O2 Delivery O2 Flow Rate FiO2 01/15/18 15:31 98.2 69 19 127/60 (82) 100 01/15/18 13:17 97.6 70 18 150/55 (86) 100 01/15/18 12:42 97.2 70 19 202/86 (124) 100 01/15/18 07:46 98.8 71 19 139/57 (84) 96 01/15/18 07:00 98.8 71 19 139/57 (84) 96 01/15/18 04:00 98.1 69 20 188/75 (112) 96 01/15/18 00:00 99.0 75 21 100 01/14/18 20:00 98.9 74 20 151/79 (103) 99 01/14/18 15:36 97.8 73 18 132/58 (82) 100 I/O 01/14/18 01/14/18 01/14/18 01/15/18 01/15/18 01/15/18 07:00 15:00 23:00 07:00 15:00 23:00 Intake Total 460 ml 800 ml 100 ml 480 ml Output Total 1350 ml 800 ml 500 ml 700 ml Balance -890 ml 0 ml 100 ml -20 ml -700 ml Intake Oral 360 ml 800 ml 480 ml IV Total 100 ml 100 ml Output Urine Total 1350 ml 800 ml 500 ml 700 ml # Bowel Movements 0 Imaging Last Impressions Chest X-Ray 01/11/18 0000 Signed Impressions: Service Date/Time: Thursday, January 11, 2018 16:17 - CONCLUSION: 1. No acute cardiopulmonary disease. Shawn Gomez MD Abdomen/Pelvis CT 01/11/18 0000 Signed Impressions: Service Date/Time: Thursday, January 11, 2018 17:08 - CONCLUSION: 1. Severe bilateral hydroureteronephrosis extending to the UV junction with moderately distended bladder demonstrating moderate diffuse bladder wall thickening. Differential considerations include neurogenic bladder versus bladder outlet obstruction. 2. 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 This has apparently been previously biopsied and evaluated. 3. Single slightly prominent air-filled loop of distal jejunum. This finding is nonspecific and may reflect focal adynamic ileus. Shawn Gomez MD Laboratory Test 01/15/18 04:04 White Blood Count 11.1 TH/MM3 Red Blood Count 3.11 MIL/MM3 Hemoglobin 7.8 GM/DL Hematocrit 24.0 % Mean Corpuscular Volume 77.3 FL Mean Corpuscular Hemoglobin 25.1 PG Mean Corpuscular Hemoglobin Concent 32.5 % Red Cell Distribution Width 19.0 % Platelet Count 263 TH/MM3 Mean Platelet Volume 8.0 FL Neutrophils (%) (Auto) 70.2 % Lymphocytes (%) (Auto) 19.7 % Monocytes (%) (Auto) 7.3 % Eosinophils (%) (Auto) 2.4 % Basophils (%) (Auto) 0.4 % Neutrophils # (Auto) 7.8 TH/MM3 Lymphocytes # (Auto) 2.2 TH/MM3 Monocytes # (Auto) 0.8 TH/MM3 Eosinophils # (Auto) 0.3 TH/MM3 Basophils # (Auto) 0.0 TH/MM3 CBC Comment AUTO DIFF Differential Comment AUTO DIFF CONFIRMED Blood Urea Nitrogen 50 MG/DL Creatinine 2.81 MG/DL Random Glucose 93 MG/DL Total Protein 6.1 GM/DL Calcium Level 7.3 MG/DL Sodium Level 150 MEQ/L Potassium Level 3.5 MEQ/L Chloride Level 115 MEQ/L Carbon Dioxide Level 24.2 MEQ/L Anion Gap 11 MEQ/L Estimat Glomerular Filtration Rate 19 ML/MIN Protein Corrected Calcium 7.8 MG/DL Date/Time Source Procedure Growth Status 01/13/18 12:53 Blood Peripheral Aerobic Blood Culture - Preliminary NO GROWTH IN 2 DAYS Resulted 01/13/18 12:53 Blood Peripheral Anaerobic Blood Culture - Preliminary NO GROWTH IN 2 DAYS Resulted 01/11/18 17:51 Urine Random Urine Urine Culture - Final Escherichia Coli Complete Physical Examination HEENT: Normocephalic; atraumatic CHEST: Even/unlabored CARDIAC: RRR ABDOMEN: Round, soft, nontender, bowel sounds active SKIN: Normal; no rash; no jaundice. IT TEACHER: Awake, poor historian (Reanna Ness) Assessment and Plan Plan ASSESSMENT - anemia, heme pos stool, questionable melena - report of black tarry stool, loose stool.poss UGIB. hgb 8.2 on admission and has dropped to 6.8. had colonoscopy 2009, finding polyps. limited hx. d/w pts daughter who is agreeable to proceed with EGD. Daughter would like to avoid colonoscopy if possible, does not think her mother will cooperate with bowel prep. Based on my assessment, would agree with that as pt was uncooperative. (01/14) Pt has not eaten much of her lunch tray, states poor appetite. No other GI complaints at this time. No BM documented since EGD yesterday. H/H stable overnight, pt received 1 U PRBCs yesterday. H/H currently 8.4/24.5 EGD (01/13) --> Reflux esophagitis, hiatal hernia. RECONSULT ON (01/15) FOR HEMOGLOBIN TRENDING DOWN Hgb continues to trend down despite 2 U PRBCs since admission, last transfused on January 13. Unsure of BMs, pt states she has had a small one every day, none documented in chart. Pt denies any GI symptoms. Spoke with daughter Rocio on the phone, she is going to come to the hospital and help pt drink the prep for the colonoscopy, she would like to proceed with colonoscopy. 2 more units of PRBCs ordered per Dr. Lorenzo. PLAN - Colonoscopy tomorrow - Obtain consent - Clear liquids today - NPO after MN - GoLytely prep - Soap suds enema x 2 in AM - Monitor H/H - Transfusion per attending - Iron studies - If colonoscopy negative, consider hematology consult - Further recommendations based on findings of above Pt has been seen and examined by Dr. Rain and myself and this note is written on his behalf (Reanna Ness) Physician Comments Patient seen and examined Agree with above Continue with current supportive care Monitor labs Plan a colonoscopy tomorrow (Harpal Rain MD) Reanna Ness January 15, 2018 15:47 Harpal Rain MD January 15, 2018 23:34
[2018-01-15] MEDS ORDERED: PEG (High)/E-LYTE SOLN 4000 ML BTL PO ONE (16:00)
[2018-01-15 17:56] LABS: % SATURATION IRON PROFILE 7.4 % (20-50); IRON (FE) 12 MCG/DL (50-170); TOTAL IRON BINDING CAPACITY 162 MCG/DL (250-450)
[2018-01-15 17:59] LABS: FERRITIN 128 NG/ML (8-252)
--- NOTE | 2018-01-15 18:02 | HHI.NPPN ---
Subjective History of Present Illness 82-year-old female with UTI, acute renal failure, GI bleed Objective Data Data 01/15/18 01/16/18 19:00 07:00 Intake Total 2 ml Output Total 700 ml Balance -698 ml Blood Product IV Normal Saline Flush 2 ml Output Urine Total 700 ml Vital Signs Date Time Temp Pulse Resp B/P (MAP) Pulse Ox O2 Delivery O2 Flow Rate FiO2 01/15/18 17:38 97.2 63 18 133/53 99 01/15/18 17:23 97.9 66 19 156/66 99 01/15/18 15:31 98.2 69 19 127/60 (82) 100 01/15/18 13:17 97.6 70 18 150/55 (86) 100 01/15/18 12:42 97.2 70 19 202/86 (124) 100 01/15/18 07:46 98.8 71 19 139/57 (84) 96 01/15/18 07:00 98.8 71 19 139/57 (84) 96 01/15/18 04:00 98.1 69 20 188/75 (112) 96 01/15/18 00:00 99.0 75 21 100 01/14/18 20:00 98.9 74 20 151/79 (103) 99 -: 01/15/18 0404 01/15/18 0404 Physical Exam General Appearance: Well Developed Neck Neck Exam: Neck Supple Pulmonary Resp Exam: Clear Bilaterally, Breath Sounds Equal Cardiology CV Exam: Regular, Normal Sinus Rhythm Gastrointestinal/Abdomen GI Exam: Soft, Non-Tender, Bowel Sounds Present Integumentary Skin Exam: Clear Extremeties Extremities Exam: Moderate Edema Assessment/Plan Problem List: (1) ABIOLA (acute kidney injury) ICD Codes: N17.9 - Acute kidney failure, unspecified Plan: Patient creatinine is declining Crowe catheter placed good UOP creatinine has declined IV fluid to one fourth of saline as sodium 150 S/P EGD Continue with hydration Avoid nephrotoxins urological follow-up (2) UTI (urinary tract infection) ICD Codes: N39.0 - Urinary tract infection, site not specified Plan: On ceftriaxone (3) GI bleed ICD Codes: K92.2 - Gastrointestinal hemorrhage, unspecified Status: Acute Plan: Follow Hemoglobin Problem Qualifiers (1) UTI (urinary tract infection): Qualified Codes: N30.00 - Acute cystitis without hematuria (2) GI bleed: Qualified Codes: K92.2 - Gastrointestinal hemorrhage, unspecified Carlin Rob MD January 15, 2018 18:02
[2018-01-15] MEDS: cefTRIAXone INJ 1,000 MG in SODIUM CHLORIDE 0.9% INJ 100 ML IV SCH (21:10)
[2018-01-16] VITALS (7 sets, daily range): BP systolic 124–185; BP diastolic 56–76; PULSE 62–77; RESP 17–19; TEMP 97.4–98.4; O2SAT 97–99
[2018-01-16] MEDS ORDERED: CHLORHEXIDINE GLUCONATE 2 % 1 PACK (2 CLOTHS) TOPICAL PRN (04:30)
[2018-01-16] MEDS ORDERED: SODIUM CHLORID 0.9% 500 ML IV PRN (04:30)
[2018-01-16] MEDS ORDERED: POVIDONE IODINE 5% (ANTISEPSIS KIT) 4 APPLICATIONS EACH NARE PRN (04:30)
[2018-01-16] MEDS ORDERED: LACTATED RINGER'S 1000 ML IV PRN (04:30)
[2018-01-16 07:10] LABS: AUTOMATED NEUTROPHIL # 7.4 TH/MM3 (1.8-7.7); BASOPHIL % 0.4 % (0.0-2.0); EOSINOPHIL # 0.3 TH/MM3 (0-0.4); HEMATOCRIT 30.8 % (35.0-46.0); HEMOGLOBIN 10.4 GM/DL (11.6-15.3); LYMPHOCYTE # 1.9 TH/MM3 (1.0-4.8); MEAN CELL VOLUME 78.1 FL (80.0-100.0); MEAN CORPUSCULAR HEMOGLOBIN 26.2 PG (27.0-34.0); MEAN CORPUSCULAR HGB CONC 33.6 % (32.0-36.0); MEAN PLATELET VOLUME 8.2 FL (7.0-11.0); MONO % 7.4 % (0.0-8.0); MONOCYTE # 0.8 TH/MM3 (0-0.9); NEUT % 71.2 % (16.0-70.0); PLATELET COUNT 239 TH/MM3 (150-450); RED BLOOD COUNT 3.94 MIL/MM3 (4.00-5.30); RED CELL DISTRIBUTION WIDTH 17.9 % (11.6-17.2); WHITE BLOOD COUNT 10.4 TH/MM3 (4.0-11.0)
[2018-01-16 07:47] LABS: ALBUMIN 1.9 GM/DL (3.4-5.0); AST (GOT) 13 U/L (15-37); BICARBONATE 23.9 MEQ/L (21.0-32.0); BLOOD UREA NITROGEN 41 MG/DL (7-18); CALCIUM 7.6 MG/DL (8.5-10.1); CHLORIDE 113 MEQ/L (98-107); CREATININE 2.39 MG/DL (0.50-1.00); GLOMERULAR FILTRATION RATE 23 ML/MIN (>89); GLUCOSE,RANDOM 80 MG/DL (74-106); MAGNESIUM 1.6 MG/DL (1.5-2.5); SODIUM (NA) 147 MEQ/L (136-145)
[2018-01-16 07:53] LABS: ALKALINE PHOSPHATASE 58 U/L (45-117); ALT (GPT) 12 U/L (10-53); PHOSPHORUS 3.1 MG/DL (2.5-4.9); TOTAL BILIRUBIN ADULT 0.3 MG/DL (0.2-1.0); TOTAL PROTEIN 6.3 GM/DL (6.4-8.2)
[2018-01-16] MEDS: PANTOPRAZOLE SOD 40 MG DELAYED RELEASE TAB PO SCH ×2 (08:35→21:30)
[2018-01-16] MEDS: PRAVASTATIN SOD 20 MG TAB PO SCH (08:35)
[2018-01-16] MEDS: cloNIDine HCL 0.1 MG TAB PO SCH ×3 (08:35→17:49)
[2018-01-16] MEDS: CARVEDILOL 12.5 MG TAB PO SCH ×2 (08:35→21:30)
[2018-01-16 08:36] LABS: LYMPHOCYTES 12 % (9-44); METAMYELOCYTES 1 % (0-1); MONOCYTES 8 % (0-8); MYELOCYTES 1 % (0-0); NEUTROPHIL # MANUAL DIFF 8.1 TH/MM3 (1.8-7.7); POLYS (SEG NEUTROPHILS) 76 % (16-70)
[2018-01-16] MEDS: SODIUM CHLORIDE 0.9% FLUSH 10 ML FLUSH IV FLUSH SCH ×2 (08:36→21:33)
[2018-01-16] MEDS: DOCUSATE SODIUM 50 MG/SENNA 8.6 MG TAB PO SCH ×2 (08:36→21:30)
[2018-01-16 08:37] LABS: ACANTHOCYTES OCC (NORMAL); OVALOCYTES 1+ (NORMAL)
[2018-01-16] MEDS: FERROUS SULFATE 325 MG (65 MG ELEMENTAL IRON) TAB PO SCH ×3 (08:43→17:49)
--- NOTE | 2018-01-16 11:19 | PD.PROCEDR ---
GI Procedure PROCEDURE PERFORMED Incomplete colonoscopy due to poor prep INDICATION FOR PROCEDURE Declining hemoglobin possible GI bleed PROCEDURE: The procedure, risks and benefits were discussed with Patient/POA and informed consent was obtained. Anesthesia sedated Patient with Diprivan. Patient was placed in the left lateral decubitus position. Colonoscopy: The Pentax videoscope was introduced through the rectum and advanced to transverse colon. Retroflexion was performed in the rectum. Colonic prep was poor prep FINDINGS: Colonic withdrawal time greater than 6 minutes. As the scope was slowly withdrawn colonic mucosa was carefully inspected the mucosa was for the most part poorly evaluated due to solid and pasty green stools a polyp was found in the transverse colon and patient was noted to have some diverticulosis in the sigmoid but otherwise the evaluation was unremarkable and incomplete ESTIMATED BLOOD LOSS: None SPECIMENS REMOVED: None COMPLICATIONS: None IMPRESSION: Colon polyp Incomplete colonoscopy PLAN: Repeat colonoscopy tomorrow No evidence of any active GI bleed Harpal Rain MD January 16, 2018 11:19
[2018-01-16] MEDS ORDERED: PEG (High)/E-LYTE SOLN 4000 ML BTL PO ONE (12:00)
[2018-01-16] MEDS: SODIUM CHLORIDE 23.4% INJ 38.5 MEQ in WATER STERILE FOR INJ 1,000 ML IV SCH (12:12)
--- NOTE | 2018-01-16 13:26 | HHI.PR ---
Subjective Remarks overall feels OK, completed prep for the colonoscopy. Objective Vitals Vital Signs Date Time Temp Pulse Resp B/P (MAP) Pulse Ox O2 Delivery O2 Flow Rate FiO2 01/16/18 11:20 57 20 135/72 (93) 97 01/16/18 07:00 97.8 71 17 150/69 (96) 99 01/16/18 04:00 98.2 62 19 124/60 (81) 98 01/16/18 02:07 98.3 68 19 147/56 98 01/15/18 22:49 97.2 66 18 143/64 99 01/15/18 22:30 96.7 60 19 154/69 100 01/15/18 20:50 98.7 62 18 176/69 100 01/15/18 20:00 97.8 66 18 186/76 (112) 100 01/15/18 17:38 97.2 63 18 133/53 99 01/15/18 17:23 97.9 66 19 156/66 99 01/15/18 15:31 98.2 69 19 127/60 (82) 100 01/15/18 13:17 97.6 70 18 150/55 (86) 100 I/O 01/15/18 01/15/18 01/15/18 01/16/18 01/16/18 01/16/18 07:00 15:00 23:00 07:00 15:00 23:00 Intake Total 480 ml 512 ml 890 ml 100 ml Output Total 500 ml 700 ml 2000 ml Balance -20 ml -700 ml 512 ml -1110 ml 100 ml Intake Oral 480 ml 480 ml IV Total 100 ml Packed Cells 400 ml 400 ml Blood Product IV Normal Saline Flush 12 ml 10 ml Other 100 ml Output Urine Total 500 ml 700 ml 2000 ml # Bowel Movements 1 Result Diagram: 01/16/18 0515 01/16/18 0515 Objective Remarks GENERAL: This is a well-nourished, well-developed patient, in no apparent distress. CARDIOVASCULAR: Regular rate and rhythm without murmurs, gallops, or rubs. RESPIRATORY: Clear to auscultation. Breath sounds equal bilaterally. No wheezes , rales, or rhonchi. GASTROINTESTINAL: Abdomen soft, non-tender, nondistended. Normal active bowel sounds MUSCULOSKELETAL: Extremities without clubbing, cyanosis, 2+ edema Procedures 01/13/18 -EGD by Dr. Rain showed reflux esophagitis, hiatal hernia, biopsies taken, recommended to continue pantoprazole A/P Problem List: (1) GI bleed ICD Code: K92.2 - Gastrointestinal hemorrhage, unspecified Status: Acute (2) Back pain ICD Code: M54.9 - Dorsalgia, unspecified (3) ABIOLA (acute kidney injury) ICD Code: N17.9 - Acute kidney failure, unspecified (4) Anemia ICD Code: D64.9 - Anemia, unspecified Status: Acute (5) UTI (urinary tract infection) ICD Code: N39.0 - Urinary tract infection, site not specified (6) Generalized weakness ICD Code: R53.1 - Weakness Assessment and Plan 82-year-old female with past medical history of borderline DM, HTN, PVD, CAD, and pancreatic tumors who presents to the ER accompanied by daughter and stepdaughter with complaints of "not feeling good". Sepsis with Complicated E. coli UTI/Pyelonephritis/Hydronephrosis: Complaints of back pain. Meets sepsis with WBC count 18.4 with left shift, HR >90 on admission, and suspected source-UTI/pyelo. Lactic acid 2.0. -CT abd/pelvis reviewed, severe bilateral hydronephrosis extending to UV junction with moderately distended bladder demonstrating moderate diffuse bladder wall thickening. -Inserted Crowe catheter on 01/11 to monitor urine output -Urine culture with E.Coli, continue on IV Rocephin for now, Day # 5 -Blood cultures with staph coag negative likely contaminant. Repeat blood culture showed no growth thus far -Consulted urology, recommends continuing Crowe and antibiotics -Monitor CBC, WBC trending down, 9.1K today Probable contaminant unlikely bacteremia: 2/4 blood cultures with staph coag negative and repeat cultures shows no growth thus far -already on IV Rocephin as above for UTI -s/p IV Vanco x1 dose -repeat blood cultures pending -consulted ID, likely contaminant, continue rocephin, no further antibiotics recommended at this time- PER ID ABIOLA on CKD stage III, Metabolic Acidosis, Hypernatremia: likely secondary to dehydration/infection. Cr 4.24 upon arrival, previously 1.2 in 2009. -Patient with poor p.o. intake for the past 2 weeks with ongoing diarrhea -Given IV hydration with 1/2 NS w/bicarb at 42ml/hr; changed to 1/2 NS on -Avoid nephrotoxins -Consulted nephrology, appreciate recommendations -BMP slowly improving, Cr 2.29 today, continue to monitor GI bleed with acute on chronic Anemia with Black stools/diarrhea: Hemoccult positive in the ED. H&H on admission 8.2/24.9 -Hgb dropped to 6.8, given 1u pRBC transfusion on 01/12, Hgb improved to 8.4 then dropped again to 7.2, given another 1u pRBC transfusion on 01/14. Transfused another 2 units on 01/15 for a total of 4 Units during this hospitalization -Consult GI, s/p EGD 01/14 which showed reflux esophagitis and hiatal hernia -Continue protonix daily -Patient/family initially declined colonoscopy but with recurrent drop in hemoglobin is going for colonoscopy today. -Continue monitor hemoglobin. today's hb 10.4 and stable after transfusion. HTN/HLD: BP not well controlled -Continue amlodipine 10 mg daily and Coreg 12.5 mg twice daily -Continue pravastatin 20 mg daily -Monitor BP, adjust antihypertensives as needed -Clonidine prn DVT prophylaxis- SCD's; avoid chemical prophylaxis secondary to anemia with suspected GIB Discharge Planning Probable home in the morning if hemoglobin remained stable and renal function continues to improve. Await colonoscopy results Problem Qualifiers (1) GI bleed: Qualified Codes: K92.2 - Gastrointestinal hemorrhage, unspecified (2) UTI (urinary tract infection): Qualified Codes: N30.00 - Acute cystitis without hematuria Jessica Delgado MD January 16, 2018 13:26
--- NOTE | 2018-01-16 17:17 | HHI.NPPN ---
Subjective History of Present Illness 82-year-old female with UTI, acute renal failure, GI bleed Objective Data Data 01/16/18 01/17/18 19:00 07:00 Intake Total 100 ml Balance 100 ml Other 100 ml Vital Signs Date Time Temp Pulse Resp B/P (MAP) Pulse Ox O2 Delivery O2 Flow Rate FiO2 01/16/18 16:00 97.4 77 18 180/74 (109) 97 01/16/18 12:00 98.1 65 17 148/65 (92) 99 01/16/18 11:20 57 20 135/72 (93) 97 01/16/18 07:00 97.8 71 17 150/69 (96) 99 01/16/18 04:00 98.2 62 19 124/60 (81) 98 01/16/18 02:07 98.3 68 19 147/56 98 01/15/18 22:49 97.2 66 18 143/64 99 01/15/18 22:30 96.7 60 19 154/69 100 01/15/18 20:50 98.7 62 18 176/69 100 01/15/18 20:00 97.8 66 18 186/76 (112) 100 01/15/18 17:38 97.2 63 18 133/53 99 01/15/18 17:23 97.9 66 19 156/66 99 -: 01/16/18 0515 01/16/18 0515 Physical Exam General Appearance: Well Developed Neck Neck Exam: Neck Supple Pulmonary Resp Exam: Clear Bilaterally, Breath Sounds Equal Cardiology CV Exam: Regular, Normal Sinus Rhythm Gastrointestinal/Abdomen GI Exam: Soft, Non-Tender, Bowel Sounds Present Integumentary Skin Exam: Clear Extremeties Extremities Exam: Moderate Edema Assessment/Plan Problem List: (1) ABIOLA (acute kidney injury) ICD Codes: N17.9 - Acute kidney failure, unspecified Plan: Patient creatinine is declining Crowe catheter placed good UOP creatinine has declined IV fluid to one fourth of saline as sodium 147 Cr 2.39 S/P EGD Continue with hydration Avoid nephrotoxins urological follow-up (2) UTI (urinary tract infection) ICD Codes: N39.0 - Urinary tract infection, site not specified Plan: On ceftriaxone (3) GI bleed ICD Codes: K92.2 - Gastrointestinal hemorrhage, unspecified Status: Acute Plan: Follow Hemoglobin (4) Hypertension ICD Codes: I10 - Essential (primary) hypertension Plan: BP higher PRN clonidine ordered Problem Qualifiers (1) UTI (urinary tract infection): Qualified Codes: N30.00 - Acute cystitis without hematuria (2) GI bleed: Qualified Codes: K92.2 - Gastrointestinal hemorrhage, unspecified Carlin Rob MD January 16, 2018 17:17
[2018-01-16] MEDS ORDERED: cloNIDine HCL 0.1 MG TAB PO PRN (17:30)
[2018-01-16] MEDS ORDERED: PROPOFOL 200 MG/20 ML AMP IV ONE (19:46)
[2018-01-16] MEDS: cefTRIAXone INJ 1,000 MG in SODIUM CHLORIDE 0.9% INJ 100 ML IV SCH (21:42)
[2018-01-17 05:00] VITALS: BP 142/63; PULSE 72; RESP 18; TEMP 98.9; O2SAT 98
[2018-01-17 08:00] VITALS: BP 150/68; PULSE 69; RESP 17; TEMP 98.2; O2SAT 100
[2018-01-17] MEDS: CARVEDILOL 12.5 MG TAB PO SCH ×2 (09:00→20:40)
[2018-01-17] MEDS: DOCUSATE SODIUM 50 MG/SENNA 8.6 MG TAB PO SCH ×2 (09:00→20:45)
[2018-01-17] MEDS: SODIUM CHLORIDE 0.9% FLUSH 10 ML FLUSH IV FLUSH SCH ×2 (09:00→20:39)
[2018-01-17] MEDS: FERROUS SULFATE 325 MG (65 MG ELEMENTAL IRON) TAB PO SCH ×3 (09:00→20:40)
[2018-01-17] MEDS: PRAVASTATIN SOD 20 MG TAB PO SCH (09:00)
[2018-01-17] MEDS: cloNIDine HCL 0.1 MG TAB PO SCH ×3 (09:00→18:00)
[2018-01-17] MEDS: PANTOPRAZOLE SOD 40 MG DELAYED RELEASE TAB PO SCH ×2 (09:00→20:40)
[2018-01-17 09:56] LABS: HEMATOCRIT 32.6 % (35.0-46.0); HEMOGLOBIN 11.1 GM/DL (11.6-15.3); MEAN CELL VOLUME 78.4 FL (80.0-100.0); MEAN CORPUSCULAR HEMOGLOBIN 26.8 PG (27.0-34.0); MEAN CORPUSCULAR HGB CONC 34.1 % (32.0-36.0); MEAN PLATELET VOLUME 8.3 FL (7.0-11.0); PLATELET COUNT 268 TH/MM3 (150-450); RED BLOOD COUNT 4.16 MIL/MM3 (4.00-5.30); RED CELL DISTRIBUTION WIDTH 18.3 % (11.6-17.2); WHITE BLOOD COUNT 8.5 TH/MM3 (4.0-11.0)
[2018-01-17 12:00] VITALS: BP 144/68; PULSE 70; RESP 19; TEMP 97.9; O2SAT 99
[2018-01-17] MEDS ORDERED: DO NOT ADM ANY ANTICOAGULANT DRUGS PRN (12:15)
[2018-01-17 16:00] VITALS: BP 184/75; PULSE 83; RESP 20; TEMP 98; O2SAT 98
--- NOTE | 2018-01-17 16:38 | HHI.PR ---
Subjective Remarks 82-year-old female with GI bleed. She was seen prior to leaving for colonoscopy today. She has no complaints. This is a repeat colonoscopy due to incomplete cleanout on the day before. Objective Vitals Vital Signs Date Time Temp Pulse Resp B/P (MAP) Pulse Ox O2 Delivery O2 Flow Rate FiO2 01/17/18 11:50 98.0 66 18 151/60 (90) 100 01/17/18 11:30 66 20 142/60 (87) 100 01/17/18 11:24 98.2 69 15 125/53 (77) 99 01/17/18 08:00 98.2 69 17 150/68 (95) 100 01/17/18 05:00 98.9 72 18 142/63 (89) 98 01/16/18 23:18 98.4 74 18 170/67 (101) 98 01/16/18 19:39 97.7 70 18 185/76 (112) 99 I/O 01/16/18 01/16/18 01/16/18 01/17/18 01/17/18 01/17/18 07:00 15:00 23:00 07:00 15:00 23:00 Intake Total 890 ml 100 ml 0 ml 50 ml Output Total 2000 ml 1100 ml 650 ml Balance -1110 ml 100 ml -1100 ml -600 ml Intake Oral 480 ml 0 ml Packed Cells 400 ml Blood Product IV Normal Saline Flush 10 ml Other 100 ml 50 ml Output Urine Total 2000 ml 1100 ml 650 ml # Bowel Movements 1 1 2 Result Diagram: 01/17/18 0754 01/16/18 0515 Objective Remarks GENERAL: Well-nourished, well-developed patient, elderly, weak, obese SKIN: Warm and dry. HEAD: Normocephalic. EYES: No scleral icterus. No injection or drainage. NECK: Supple, trachea midline. No JVD or lymphadenopathy. CARDIOVASCULAR: Regular rate and rhythm without murmurs, gallops, or rubs. RESPIRATORY: Breath sounds equal bilaterally. No accessory muscle use. GASTROINTESTINAL: Abdomen soft, non-tender, nondistended. EXTREMITIES: No cyanosis, or edema. NEUROLOGICAL: Awake, alert, and oriented x 3. Non-focal. Procedures 01/13/18 -EGD by Dr. Rain showed reflux esophagitis, hiatal hernia, biopsies taken, recommended to continue pantoprazole A/P Problem List: (1) GI bleed ICD Code: K92.2 - Gastrointestinal hemorrhage, unspecified Status: Acute (2) Back pain ICD Code: M54.9 - Dorsalgia, unspecified (3) ABIOLA (acute kidney injury) ICD Code: N17.9 - Acute kidney failure, unspecified (4) Anemia ICD Code: D64.9 - Anemia, unspecified Status: Acute (5) UTI (urinary tract infection) ICD Code: N39.0 - Urinary tract infection, site not specified (6) Generalized weakness ICD Code: R53.1 - Weakness Assessment and Plan 82-year-old female with past medical history of borderline DM, HTN, PVD, CAD, and pancreatic tumors who presents to the ER accompanied by daughter and stepdaughter with complaints of "not feeling good". Complicated E. coli UTI/Pyelonephritis/Hydronephrosis Urine cultures show sensitivity to Rocephin, patient has been on Rocephin since 01/11/2018 Urology recommended continuation of Crowe and antibiotics Final results of blood culture are pending Patient is no longer showing signs of sepsis Appreciate infectious disease consult ABIOLA on CKD stage III, Metabolic Acidosis, Hypernatremia Trend is slowly improving, likely secondary to dehydration and infection Continue to monitor creatinine level, 4.24 on arrival, 2.29 on 525 BNP ordered for the a.m. GI bleed with acute on chronic Anemia with Black stools/diarrhea Hemoglobin down to 6.8 on arrival, received a total of 4 units of blood during this stay Underwent colonoscopy today which shows diverticuli and polyps, no obvious source of acute bleeding Continue Protonix Follow CBC trend Hypertension Continue amlodipine 10 mg daily and Coreg 12.5 mg twice daily Clonidine prn DVT prophylaxis SCD's; avoid chemical prophylaxis secondary to anemia with suspected GI bleed Discharge Planning Expecting discharge will be appropriate tomorrow Problem Qualifiers (1) GI bleed: Qualified Codes: K92.2 - Gastrointestinal hemorrhage, unspecified (2) UTI (urinary tract infection): Qualified Codes: N30.00 - Acute cystitis without hematuria Parveen Avalos MD January 17, 2018 16:38
[2018-01-17 20:00] VITALS: BP 140/66; PULSE 79; RESP 22; TEMP 98.6; O2SAT 99
[2018-01-17] MEDS: cefTRIAXone INJ 1,000 MG in SODIUM CHLORIDE 0.9% INJ 100 ML IV SCH (20:39)
[2018-01-17] MEDS: SODIUM CHLORIDE 23.4% INJ 38.5 MEQ in WATER STERILE FOR INJ 1,000 ML IV SCH (23:14)
[2018-01-18] VITALS: BP 137/64; PULSE 89; RESP 22; TEMP 98.8; O2SAT 97
[2018-01-18 04:00] VITALS: BP 162/72; PULSE 75; RESP 22; TEMP 99.2; O2SAT 98
[2018-01-18 06:28] LABS: CREATININE 1.86 MG/DL (0.50-1.00)
[2018-01-18 08:00] VITALS: BP 191/72; PULSE 71; RESP 18; TEMP 98.8; O2SAT 100
--- NOTE | 2018-01-18 09:15 | HHI.DS ---
Discharge Summary Admission Date January 11, 2018 at 18:15 Discharge Date: January 18, 2018 Admitting Diagnosis UTI, Anemia (1) GI bleed ICD Code: K92.2 - Gastrointestinal hemorrhage, unspecified Status: Acute (2) Back pain ICD Code: M54.9 - Dorsalgia, unspecified (3) ABIOLA (acute kidney injury) ICD Code: N17.9 - Acute kidney failure, unspecified (4) Anemia ICD Code: D64.9 - Anemia, unspecified Status: Acute (5) UTI (urinary tract infection) ICD Code: N39.0 - Urinary tract infection, site not specified (6) Generalized weakness ICD Code: R53.1 - Weakness Procedures 01/13/18 -EGD by Dr. Rain showed reflux esophagitis, hiatal hernia, biopsies taken, recommended to continue pantoprazole Brief History - From Admission Written by Florencia Mayers, acting as scribe for Dr. Khan on 01/11/18 at 18: 12. 82-year-old female with PMH of borderline DM, HTN, PVD, CAD, and pancreatic tumors who presents to the ER accompanied by daughter and stepdaughter with complaints of "not feeling good". Patient currently lives with son and daughters who are at bedside reports that for the past 2 weeks patient's appetite has decreased and she has not been eating hardly anything. Patient is also been noted to have some nausea but no vomiting. Daughters report diarrhea and black stool. Denies abdominal pain, SOB, or cough. Patient does complain of back pain no reported dysuria. Daughter also states that patient has not taken her antihypertensive for the past week. She has been living with son and ambulates with a walker. Patient has history of peripheral vascular disease with on and off swelling of bilateral lower extremities but has refused treatment in the past per daughter's. CBC/BMP: 01/17/18 0754 01/18/18 0425 Significant Findings Laboratory Tests Test 01/16/18 05:15 01/17/18 07:54 01/18/18 04:25 Red Blood Count 3.94 MIL/MM3 (4.00-5.30) Hemoglobin 10.4 GM/DL (11.6-15.3) 11.1 GM/DL (11.6-15.3) Hematocrit 30.8 % (35.0-46.0) 32.6 % (35.0-46.0) Mean Corpuscular Volume 78.1 FL (80.0-100.0) 78.4 FL (80.0-100.0) Mean Corpuscular Hemoglobin 26.2 PG (27.0-34.0) 26.8 PG (27.0-34.0) Red Cell Distribution Width 17.9 % (11.6-17.2) 18.3 % (11.6-17.2) Neutrophils (%) (Auto) 71.2 % (16.0-70.0) Neutrophils % (Manual) 76 % (16-70) Neutrophils # (Manual) 8.1 TH/MM3 (1.8-7.7) Myelocytes 1 % (0-0) Ovalocytes 1+ (NORMAL) Acanthocytes OCC (NORMAL) Blood Urea Nitrogen 41 MG/DL (7-18) Creatinine 2.39 MG/DL (0.50-1.00) 1.86 MG/DL (0.50-1.00) Total Protein 6.3 GM/DL (6.4-8.2) Albumin 1.9 GM/DL (3.4-5.0) Calcium Level 7.6 MG/DL (8.5-10.1) Aspartate Amino Transf (AST/SGOT) 13 U/L (15-37) Sodium Level 147 MEQ/L (136-145) Chloride Level 113 MEQ/L (98-107) Estimat Glomerular Filtration Rate 23 ML/MIN (>89) 31 ML/MIN (>89) PE at Discharge GENERAL: Well-nourished, well-developed patient, elderly, weak, obese SKIN: Warm and dry. HEAD: Normocephalic. EYES: No scleral icterus. No injection or drainage. NECK: Supple, trachea midline. No JVD or lymphadenopathy. CARDIOVASCULAR: Regular rate and rhythm without murmurs, gallops, or rubs. RESPIRATORY: Breath sounds equal bilaterally. No accessory muscle use. GASTROINTESTINAL: Abdomen soft, non-tender, nondistended. EXTREMITIES: No cyanosis, or edema. NEUROLOGICAL: Awake, alert, and oriented x 3. Non-focal. Hospital Course This is an 82-year-old female who presented to the ER 1 week ago with generalized malaise. Workup revealed that she had anemia of likely GI bleed source. She was also found to have a severe complicated urinary tract infection with borderline sepsis. She was transfused with blood and GI workup included colonoscopy and EGD which revealed gastritis, diverticular to low cysts , polyps. Infectious disease workup revealed E. coli urinary tract infection that was sensitive to Rocephin. She has been on Rocephin for 1 week and is free from symptoms of a UTI or sepsis at this point. Gastroenterology recommends that she remain on pantoprazole to reduce her risk of GI bleed. She is recovering from acute kidney injury related to her urinary tract infection and will have follow-up with her primary care doctor. Based on her decline of function she was qualified for a rehab facility, however she is refusing to go to rehab facility and is opting to go home where she is cared for by her family. She has accepted my offer to arrange for home health physical therapy and nursing. Pt Condition on Discharge: Good Discharge Disposition: Disch w/ Home Health Serv Discharge Time: <= 30 minutes Discharge Instructions DIET: Follow Instructions for: As Tolerated, No Restrictions Activities you can perform: Weight Bearing as Parveen Trivedi MD January 18, 2018 09:15
[2018-01-18] MEDS ORDERED: PANT40TA3 PO (09:16)
--- NOTE | 2018-01-18 09:18 | HHI.FF ---
Face to Face Verification Diagnosis: (1) Anemia (2) Generalized weakness (3) UTI (urinary tract infection) (4) GI bleed (5) Gait instability (6) ABIOLA (acute kidney injury) Physical Therapy Order: Evaluate and Treat Home Health Nursing Order: Medical education Signs/symptoms of disease process Nursing assessment with vital signs I have seen patient Tiana Giraldo on 01/18/18. My clinical findings support the need for the requested home health care services because: Ltd mobility - disease progression Deconditioned w/ increased weakness Limited ability to care for self High risk of falls I certify that my clinical findings support that this patient is homebound because: Unsteady gait/balance Unsafe to leave home unassisted Unable to use public transportation Follow up CBC, BMP, Urinalysis ordered for 1 week (slip on chart) Parveen Avalos MD January 18, 2018 09:18
[2018-01-18] MEDS: FERROUS SULFATE 325 MG (65 MG ELEMENTAL IRON) TAB PO SCH ×3 (09:32→18:26)
[2018-01-18] MEDS: PRAVASTATIN SOD 20 MG TAB PO SCH (09:32)
[2018-01-18] MEDS: DOCUSATE SODIUM 50 MG/SENNA 8.6 MG TAB PO SCH (09:32)
[2018-01-18] MEDS: SODIUM CHLORIDE 0.9% FLUSH 10 ML FLUSH IV FLUSH SCH (09:32)
[2018-01-18] MEDS: cloNIDine HCL 0.1 MG TAB PO SCH ×3 (09:32→18:00)
[2018-01-18] MEDS: CARVEDILOL 12.5 MG TAB PO SCH (09:33)
[2018-01-18] MEDS: PANTOPRAZOLE SOD 40 MG DELAYED RELEASE TAB PO SCH (09:33)
[2018-01-18 12:00] VITALS: BP 148/65; PULSE 69; RESP 21; TEMP 98.2; O2SAT 98
--- NOTE | 2018-01-18 15:56 | HHI.NPPN ---
Subjective History of Present Illness 82-year-old female with UTI, acute renal failure, GI bleed Objective Data Data Vital Signs Date Time Temp Pulse Resp B/P (MAP) Pulse Ox O2 Delivery O2 Flow Rate FiO2 01/18/18 12:00 98.2 69 21 148/65 (92) 98 01/18/18 08:00 98.8 71 18 191/72 (111) 100 01/18/18 04:00 99.2 75 22 162/72 (102) 98 01/18/18 00:00 98.8 89 22 137/64 (88) 97 01/17/18 20:00 98.6 79 22 140/66 (90) 99 01/17/18 16:00 98.0 83 20 184/75 (111) 98 -: 01/17/18 0754 01/18/18 0425 Physical Exam General Appearance: Well Developed Neck Neck Exam: Neck Supple Pulmonary Resp Exam: Clear Bilaterally, Breath Sounds Equal Cardiology CV Exam: Regular, Normal Sinus Rhythm Gastrointestinal/Abdomen GI Exam: Soft, Non-Tender, Bowel Sounds Present Integumentary Skin Exam: Clear Extremeties Extremities Exam: Moderate Edema Assessment/Plan Problem List: (1) ABIOLA (acute kidney injury) ICD Codes: N17.9 - Acute kidney failure, unspecified Plan: Patient creatinine is declining Crowe catheter placed good UOP creatinine has declined IV fluid to one fourth of saline as sodium 147 Cr 1.8 she is unable to void urine after Crowe was taken out, she needs urodynamic studies with Dr. Wade and leave Crowe in urological follow-up (2) UTI (urinary tract infection) ICD Codes: N39.0 - Urinary tract infection, site not specified Plan: On ceftriaxone (3) GI bleed ICD Codes: K92.2 - Gastrointestinal hemorrhage, unspecified Status: Acute Plan: Follow Hemoglobin (4) Hypertension ICD Codes: I10 - Essential (primary) hypertension Plan: BP higher PRN clonidine ordered Problem Qualifiers (1) UTI (urinary tract infection): Qualified Codes: N30.00 - Acute cystitis without hematuria (2) GI bleed: Qualified Codes: K92.2 - Gastrointestinal hemorrhage, unspecified Carlin Rob MD January 18, 2018 15:56
[2018-01-18 16:00] VITALS: BP 155/63; PULSE 74; RESP 20; TEMP 98.2; O2SAT 98
== END 2018-01-18 19:47 | disposition home health service (06) | DRG 871 ==
LOC: NEPE 13:49 → NEDA 18:15 → N06A 21:11
PROVIDERS: ADMIT Internal Medicine; ATTEND Internal Medicine
PROC: 0T9B70Z Drainage of Bladder with Drainage Device, Via Natural or Artificial Opening (ICD-10-PCS; 2018-01-11)
PROC: 30233N1 Transfusion of Nonautologous Red Blood Cells into Peripheral Vein, Percutaneous Approach (ICD-10-PCS; principal; 2018-01-12)
PROC: 0DB38ZX Excision of Lower Esophagus, Via Natural or Artificial Opening Endoscopic, Diagnostic (ICD-10-PCS; 2018-01-13)
PROC: 0DJD8ZZ Inspection of Lower Intestinal Tract, Via Natural or Artificial Opening Endoscopic (ICD-10-PCS; 2018-01-16)
PROC: 0DBN8ZZ Excision of Sigmoid Colon, Via Natural or Artificial Opening Endoscopic (ICD-10-PCS; 2018-01-17)
DX: A41.51 Sepsis due to Escherichia coli [E. coli] (principal); K57.31 Diverticulosis of large intestine without perforation or abscess with bleeding; N17.9 Acute kidney failure, unspecified; E87.0 Hyperosmolality and hypernatremia; E87.2 Acidosis; I13.0 Hypertensive heart and chronic kidney disease with heart failure and stage 1 through stage 4 chronic kidney disease, or unspecified chronic kidney disease; N13.6 Pyonephrosis; I50.9 Heart failure, unspecified; E11.51 Type 2 diabetes mellitus with diabetic peripheral angiopathy without gangrene; E86.0 Dehydration; N18.3 Chronic kidney disease, stage 3 (moderate); D64.9 Anemia, unspecified; I25.10 Atherosclerotic heart disease of native coronary artery without angina pectoris; E78.5 Hyperlipidemia, unspecified; K86.9 Disease of pancreas, unspecified; K44.9 Diaphragmatic hernia without obstruction or gangrene; K21.0 Gastro-esophageal reflux disease with esophagitis; K63.5 Polyp of colon; E11.22 Type 2 diabetes mellitus with diabetic chronic kidney disease; Z82.49 Family history of ischemic heart disease and other diseases of the circulatory system; Z83.3 Family history of diabetes mellitus
CPT/HCPCS: 36430; 71045; 74176; 76937; 80048; 80053; 80202; 81001; 82565; 82728; 82948; 83036; 83540; 83550; 83605; 83690; 83735; 84100; 84155; 84439; 84443; 85007; 85014; 85018; 85025; 85027; 85610; 85730; 86403; 86850; 86900; 86901; 86920; 87040; 87077; 87086; 87186; 87205; 88305; 93005; 96361; 96365; 96375; C9113; J0696; J1940; J3370; J7030; J7040; J7050; J7120; P9016

== ENCOUNTER 2018-06-17 15:04 | Inpatient (IN) ==
[2018-06-17] MEDS ORDERED: Sodium Chlor 0.9% Inj 500 ML IV.SIG ONE (15:56)
--- NOTE | 2018-06-17 16:16 | ED ---
HPI General Chief Complaint: Abdominal Pain Stated Complaint: Swollen Feet/Right Side pain Time Seen by Provider: 06/17/18 15:50 Source: patient, family and EMS Mode of arrival: wheelchair Limitations: other (dementia) History of Present Illness HPI narrative: 82 YO F with PMH of HTN, CHF presents to the ED via EMS for evaluation of 3 day history of right flank pain and bilateral lower extremity edema. The patient is oriented to self only. She complains of abdominal pain. She denies fevers, vomiting, changes in bowel habits. The patients daughter is at bedside. She states that the patient lives at home with her brother, the patients son. She states that the patient was recently on antibiotics and water pills. She states that the patient "has been laying in bed for at least a week. " The patients daughter denies any dark stools, states that she helped clean up a bowel movement before arrival. Related Data Home Medications Medication Instructions Recorded Confirmed amlodipine 10 mg PO DAILY 06/17/18 06/17/18 carvedilol 12.5 mg PO BID 06/17/18 06/17/18 clonidine HCl 0.1 mg PO TID 06/17/18 06/17/18 furosemide 40 mg PO DAILY 06/17/18 06/17/18 lisinopril 40 mg PO DAILY 06/17/18 06/17/18 pantoprazole 40 mg PO DAILY 06/17/18 06/17/18 potassium chloride 10 meq PO DAILY 06/17/18 06/17/18 pravastatin 20 mg PO DAILY 06/17/18 06/17/18 Allergies Allergy/AdvReac Type Severity Reaction Status Date / Time No Known Allergies Allergy Verified 06/17/18 17:07 Review of Systems ROS: all other systems reviewed are negative PMFSH Medical History Medical History CHF (congestive heart failure) (Acute) Diabetes (Acute) HTN (hypertension) (Acute) Social History Social History Substance History: No History of Abuse Smoking Status: Never smoker How Often Do You Have a Drink Containing Alcohol: Never Recent Travel in [facility] within the Last 8 Weeks: No Recent Out of Country Travel within the Last 8 Weeks: No Immunization History Tetanus Immunization: Unsure Exam Narrative Exam Narrative: GENERAL: Well nourished, well developed AA female in NAD. Smells strongly of urine. SKIN: Focused skin assessment warm/dry. HEAD: Atraumatic. Normocephalic. EYES: Pupils equal and round. No scleral icterus. No injection or drainage. ENT: No nasal bleeding or discharge. Mucous membranes pink and moist. NECK: Trachea midline. No JVD. CARDIOVASCULAR: Regular rate and rhythm. No murmur appreciated. RESPIRATORY: No accessory muscle use. Clear to auscultation. Breath sounds equal bilaterally. GASTROINTESTINAL: Abdomen soft, nondistended. Hepatic and splenic margins not palpable. Tender to palpation in the RUQ,RLQ, right flank. MUSCULOSKELETAL: No obvious deformities. No clubbing. No cyanosis. Tender to palpation of the right hip. Right knee held in mild flexion. Tender edema to the knee bilaterally, L>> R. Positive Hohmann sign bilaterally. NEUROLOGICAL: Awake and alert. No obvious cranial nerve deficits. Motor grossly within normal limits. Normal speech. PSYCHIATRIC: Appropriate mood and affect; insight and judgment normal. Course Initial Documented Vital Signs Pulse Rate 73 06/17/18 15:47 Respiratory Rate 21 06/17/18 15:47 Blood Pressure 203/84 H 06/17/18 15:47 Pulse Oximetry 100 06/17/18 15:47 Last Documented Vital Signs Pulse Rate 68 06/17/18 17:43 Respiratory Rate 25 H 06/17/18 17:43 Blood Pressure 166/77 H 06/17/18 17:43 Pulse Oximetry 98 06/17/18 17:43 Medical Decision Making JAMIE Attestation JAMIE supervised visit: Yes Attestation: I was present with the advanced practitioner during the management of this patient. I discussed the case with the advanced practitioner and agree with the findings and plan as documented in their note except as noted below. 82yF presenting with right flank pain, urinary incontinence (chronic), and bilateral lower extremity edema. The patient's daughter states that the patient has a history of lower GI bleed, urosepsis, and ABIOLA in December of this year. The patient has been complaining of right flank pain for the past 2 days and her daughter is concerned that she has a UTI/ pyelonephritis. No known fevers, vomiting, diarrhea, or bloody/ black stools. The patient has chronic lower extremity edema which has worsened over the past 2-3 days. MDM Narrative Medical decision making narrative: 81% neutrophils.82 YO F with PMH of HTN, CHF presents to the ED via EMS for evaluation of 3 day history of right flank pain and bilateral lower extremity edema. The patient is oriented to self only. The patients daughter is at bedside. She states that the patient lives at home with her brother, the patients son. She states that the patient was recently on antibiotics and water pills, "has been laying in bed for at least a week." Afebrile on presentation. Physical exam reveals a pleasant but confused -[place] female in no acute distress. The lung sounds are clear and equal bilaterally. She does have tenderness to palpation in the right upper and lower quadrants of the abdomen. Bilateral lower extremities are edematous to the knee, left greater than right. Patient is very sensitive to any examination of the legs. IV was established. Patient was placed on continuous monitoring. She was administered 2 mg of morphine. EKG as below. CXR without acute findings. BNP 632. Mild leukocytosis of 11.4, 81% neutrophils. INR 1.1. BUN41, Cr 2.26, GFR 25. UA cloudy, large leukocyte esterase, 57 RBC, many WBC clumps. Culture pending. US of BLE reveals bilateral DVTs, study incomplete due to patients resistance. The patient was administered 1g Rocephin, heparin bolus and drip initiated. I discussed the findings with the patient and her daughter at bedside. They are agreeable to admission. Dr. Butterfield agrees to accept the patient to the medicine service. Please see medicine notes for disposition. Medical Screen Exam Complete: Yes Emergency Medical Condition: Yes Differential Diagnosis Differential Diagnosis: CHF exacerbation versus DVT versus UTI versus pyelonephritis versus metabolic derangement versus hip fracture versus other Lab Data Result diagrams: 06/17/18 16:00 06/17/18 16:00 Lab Results 06/17/18 06/17/18 06/17/18 Range/Units 16:00 16:00 16:00 WBC 11.4 H (4.0-11.0) th/mm3 RBC 4.42 (4.00-5.30) mil/mm3 Hgb 11.9 (11.6-15.3) gm/dL Hct 35.9 (35.0-46.0) % MCV 81.3 (80.0-100.0) fL MCH 27.0 (27.0-34.0) pg MCHC 33.1 (32.0-36.0) % RDW 15.1 (11.6-17.2) % Plt Count 401 (150-450) th/mm3 MPV 7.9 (7.0-11.0) fL Neut % (Auto) 81.0 H (16.0-70.0) % Lymph % (Auto) 11.7 (9.0-44.0) % Rice % (Auto) 5.1 (0.0-8.0) % Eos % (Auto) 1.8 (0.0-4.0) % Baso % (Auto) 0.4 (0.0-2.0) % Neut # (Auto) 9.2 H (1.8-7.7) th/mm3 Lymph # (Auto) 1.3 (1.0-4.8) th/mm3 Rice # (Auto) 0.6 (0.0-0.9) th/mm3 Eos # (Auto) 0.2 (0.0-0.4) th/mm3 Baso # (Auto) 0.0 (0.0-0.2) th/mm3 WBC Differential . Differential Comment Auto diff final PT (9.8-11.6) sec INR Ratio APTT (24.3-30.1) sec Sodium 148 H (136-145) meq/L Potassium 3.2 L (3.5-5.1) meq/L Chloride 108 H (98-107) meq/L Carbon Dioxide 29.1 (21.0-32.0) meq/L Anion Gap 11 (5-15) meq/L BUN 41 H (7-18) mg/dL Creatinine 2.26 H (0.50-1.00) mg/dL Estimated GFR 25 L (>89) mL/min Random Glucose 144 H (74-106) mg/dL Calcium 8.1 L (8.5-10.1) mg/dL Magnesium 2.1 (1.5-2.5) mg/dL Total Bilirubin 0.4 (0.2-1.0) mg/dL AST 16 (15-37) U/L ALT 12 (10-53) U/L Alkaline Phosphatase 72 (45-117) U/L B-Natriuretic Peptide 632 H (0-100) pg/mL Total Protein 7.7 (6.4-8.2) g/dL Albumin 2.5 L (3.4-5.0) g/dL Lipase 86 (73-393) U/L Urine Color (Yellw/Straw) Urine Clarity (Clear) Urine pH (5.0-8.5) Ur Specific [place] (1.002-1.035) Urine Protein (Neg-Trace) mg/dL Urine Glucose (UA) (Negative) mg/dL Urine Ketones (Negative) mg/dL Urine Occult Blood (Negative) Urine Nitrate (Negative) Urine Bilirubin (Negative) Urine Urobilinogen (Less than 2) mg/dL Ur Leukocyte Esterase (Negative) Urine RBC (0-3) /hpf Urine WBC (0-5) /hpf Urine WBC Clumps (None) Ur Squamous Epith Cells (0-5) /hpf Urine Bacteria (None) /hpf Urine Mucus (Occasional) /lpf Urine Yeast (None) /hpf Micro UA Comment Ur Microscopic Review Urine Culture Comments 06/17/18 06/17/18 Range/Units 16:44 19:58 WBC (4.0-11.0) th/mm3 RBC (4.00-5.30) mil/mm3 Hgb (11.6-15.3) gm/dL Hct (35.0-46.0) % MCV (80.0-100.0) fL MCH (27.0-34.0) pg MCHC (32.0-36.0) % RDW (11.6-17.2) % Plt Count (150-450) th/mm3 MPV (7.0-11.0) fL Neut % (Auto) (16.0-70.0) % Lymph % (Auto) (9.0-44.0) % Rice % (Auto) (0.0-8.0) % Eos % (Auto) (0.0-4.0) % Baso % (Auto) (0.0-2.0) % Neut # (Auto) (1.8-7.7) th/mm3 Lymph # (Auto) (1.0-4.8) th/mm3 Rice # (Auto) (0.0-0.9) th/mm3 Eos # (Auto) (0.0-0.4) th/mm3 Baso # (Auto) (0.0-0.2) th/mm3 WBC Differential Differential Comment PT 11.3 (9.8-11.6) sec INR 1.1 Ratio APTT 23.1 L (24.3-30.1) sec Sodium (136-145) meq/L Potassium (3.5-5.1) meq/L Chloride (98-107) meq/L Carbon Dioxide (21.0-32.0) meq/L Anion Gap (5-15) meq/L BUN (7-18) mg/dL Creatinine (0.50-1.00) mg/dL Estimated GFR (>89) mL/min Random Glucose (74-106) mg/dL Calcium (8.5-10.1) mg/dL Magnesium (1.5-2.5) mg/dL Total Bilirubin (0.2-1.0) mg/dL AST (15-37) U/L ALT (10-53) U/L Alkaline Phosphatase (45-117) U/L B-Natriuretic Peptide (0-100) pg/mL Total Protein (6.4-8.2) g/dL Albumin (3.4-5.0) g/dL Lipase (73-393) U/L Urine Color Yellow (Yellw/Straw) Urine Clarity Cloudy H (Clear) Urine pH 6.0 (5.0-8.5) Ur Specific [place] 1.011 (1.002-1.035) Urine Protein 100 H (Neg-Trace) mg/dL Urine Glucose (UA) Negative (Negative) mg/dL Urine Ketones Negative (Negative) mg/dL Urine Occult Blood Moderate H (Negative) Urine Nitrate Negative (Negative) Urine Bilirubin Negative (Negative) Urine Urobilinogen Less than 2 (Less than 2) mg/dL Ur Leukocyte Esterase Large H (Negative) Urine RBC 57 H (0-3) /hpf Urine WBC (0-5) /hpf Urine WBC Clumps Many H (None) Ur Squamous Epith Cells 6 (0-5) /hpf Urine Bacteria Few H (None) /hpf Urine Mucus Few H (Occasional) /lpf Urine Yeast Rare H (None) /hpf Micro UA Comment Cath-culture ind Ur Microscopic Review Not Reportable Urine Culture Comments Cath-cult indicated Imaging Data Radiologist's impression: Chest X-Ray 06/17/18 16:03 CONCLUSION: No acute cardiopulmonary disease. Venous Doppler Study 06/17/18 16:04 CONCLUSION: 1. Concerning for nonocclusive thrombus in the distal SFV bilaterally. Exam is somewhat limited due to the patient's inability to cooperate. 2. Occlusive thrombus in the right popliteal vein and peroneal. 3. Borderline prominent 1.8 cm lymph node in the right iliac chain is likely reactive with a clear fatty hilum Hip X-Ray 06/17/18 16:13 CONCLUSION: No definite bony fracture or joint dislocation is demonstrated. Patient is scheduled for CT abdomen/pelvis which can further help evaluate this area. Abdomen/Pelvis CT 06/17/18 16:54 CONCLUSION: 1. Large, 7.2 x 8.3 cm septated predominantly cystic mass lesion in the head of the pancreas is unchanged over multiple prior studies. This has been worked up in the past. 2. Stable prominence of the CBD with stable debris/sludge dependent portion of the gallbladder. 3. Bilateral hydronephrosis, unchanged. 4. Mild diverticular disease of the sigmoid colon without diverticulitis. 5. Large amount stool in the rectal vault. ECG Data Attestation: I personally reviewed and interpreted this ECG as follows: Interpretation: Rate: 67 BPM Rhythm: Sinus Hallie: Left Intervals: IVCD, QTc 462 ms Q waves: III T waves: Inverted in I, aVL, V6 ST segments: No elevations or depressions Impression: Partial LBBB, no changes as compared to EKG from 01/12/2018. Discharge Plan Discharge Disposition Patient Disposition: 30 Still Patient Discharge Details Diagnosis: UTI (urinary tract infection), DVT (deep venous thrombosis), ABIOLA (acute kidney injury) Physicians Team ED Provider: María Elena Lawrence ED Midlevel Provider: Sabrina Garay Primary Care Provider: Annalise Slaughter Attending Provider: Lydia Butterfield Other Providers: [employer] Status ED Status: Admitted Patient
[2018-06-17] MEDS ORDERED: Morphine Sulfate Inj 2 MG/ML Vial IV.PUSH ONE (16:25)
[2018-06-17 16:47] LABS: Baso % (Auto) 0.4 % (0.0-2.0); Eos # (Auto) 0.2 th/mm3 (0.0-0.4); Eos % (Auto) 1.8 % (0.0-4.0); Hematocrit 35.9 % (35.0-46.0); Hemoglobin 11.9 gm/dL (11.6-15.3); Lymph # (Auto) 1.3 th/mm3 (1.0-4.8); Lymph % (Auto) 11.7 % (9.0-44.0); Mean Corpuscular HGB Conc 33.1 % (32.0-36.0); Mean Corpuscular Volume 81.3 fL (80.0-100.0); Mean Platelet Volume 7.9 fL (7.0-11.0); Mono # (Auto) 0.6 th/mm3 (0.0-0.9); Mono % (Auto) 5.1 % (0.0-8.0); Neut # (Auto) 9.2 th/mm3 (1.8-7.7); Platelet Count 401 th/mm3 (150-450); Red Blood Count 4.42 mil/mm3 (4.00-5.30); Red Cell Distribution Width 15.1 % (11.6-17.2); White Blood Count 11.4 th/mm3 (4.0-11.0)
[2018-06-17 16:51] LABS: Alanine Aminotransferase 12 U/L (10-53); Albumin 2.5 g/dL (3.4-5.0); Anion Gap 11 meq/L (5-15); Aspartate Aminotransferase 16 U/L (15-37); Blood Urea Nitrogen 41 mg/dL (7-18); Calcium 8.1 mg/dL (8.5-10.1); Carbon Dioxide 29.1 meq/L (21.0-32.0); Chloride 108 meq/L (98-107); Glomerular Filtration Rate 25 mL/min (>89); Glucose,Random 144 mg/dL (74-106); Lipase 86 U/L (73-393); Magnesium 2.1 mg/dL (1.5-2.5); Potassium 3.2 meq/L (3.5-5.1); Sodium 148 meq/L (136-145)
[2018-06-17 16:53] LABS: Alkaline Phosphatase 72 U/L (45-117); Total Protein 7.7 g/dL (6.4-8.2)
--- NOTE | 2018-06-17 17:30 | XR ---
EXAM DATE: 06/17/2018 4:03 PM EDT AGE/SEX: 82 years / Female INDICATIONS: CHF. CLINICAL DATA: This is the patient's initial encounter. Patient reports that signs and symptoms have been present for 1 day and indicates a pain score of 10/10. MEDICAL/SURGICAL HISTORY: Congestive heart failure. Non-responsive. COMPARISON: . FINDINGS: A single AP view of the chest demonstrates the lungs to be symmetrically aerated without evidence of mass, infiltrate or effusion. The cardiomediastinal contours are unremarkable. Osseous structures a re intact. CONCLUSION: No acute cardiopulmonary disease. Electronically signed by: Delonte Juárez MD 06/17/2018 5:29 PM EDT
[2018-06-17 17:35] LABS: Bacteria,Urine Few /hpf; Bilirubin,Urine Negative (Negative); Clarity,Urine Cloudy (Clear); Color,Urine Yellow (Yellw/Straw); Glucose,Urine (UA) Negative (Negative); Leukocyte Esterase,Urine Large (Negative); Mucus,Urine Few /lpf (Occasional); Nitrite,Urine Negative (Negative); Specific Gravity,Urine 1.011 (1.002-1.035); Squamous Epithelial Cell,Urine 6 /hpf (0-5)
--- NOTE | 2018-06-17 17:35 | XR ---
EXAM DATE: 06/17/2018 4:13 PM EDT AGE/SEX: 82 years / Female INDICATIONS: Pain. CLINICAL DATA: This is the patient's initial encounter. Patient reports that signs and symptoms have been present for 1 day and indicates a pain score of 10/10. MEDICAL/SURGICAL HISTORY: Congestive heart failure. Non-responsive. COMPARISON: No prior exams available for comparison. FINDINGS: There is osteopenia of the bony structures. No definite bony fracture or joint dislocation is demonst rated. The crosstable laterals unremarkable. CONCLUSION: No definite bony fracture or joint dislocation is demonstrated. Patient is scheduled for CT abdomen/p bell which can further help evaluate this area. Electronically signed by: Grant Chang MD 06/17/2018 5:34 PM EDT
--- NOTE | 2018-06-17 18:10 | CT ---
EXAM DATE: 06/17/2018 4:56 PM EDT AGE/SEX: 82 years / Female INDICATIONS: Right upper quadrant and flank pain past 3 days. CLINICAL DATA: This is the patient's initial encounter. Patient reports that signs and symptoms have been present for 3 days and indicates a pain score of 5/10. MEDICAL/SURGICAL HISTORY: Cerebrovascular disease. Diabetes mellitus type II. Hypertension. N one. RADIATION DOSE: 15.02 CTDI (mGy) COMPARISON: [facility] [place], CT ABDOMEN & PELVIS W/O CONTRAST, 01/11/2018. . TECHNIQUE: Multiple contiguous axial images were obtained through the abdomen. Images were obtained using multiple row detector helical technique. Using automated exposure control and adjustment of the mA and/or kV according to patient size, radiation dose was kept as low as reasonably achievable to o btain optimal diagnostic quality images. DICOM format image data is available electronically for rev iew and comparison. FINDINGS: Lower Lungs: The visualized lower lungs are clear. Liver: Sludge-filled gallbladder. Prominence of the CBD but no intrahepatic biliary ductal dilatation . Configuration is stable from prior. Spleen: Homogeneous density without enlargement. Pancreas: A large, 7.2 x 8.3 cm septated mass lesion is again identified in the head of the pancreas which was present previously and is basically unchanged. Kidneys: Bilateral hydronephrosis, unchanged. Prominent, 4.8 cm cortical cyst in the lateral midpole the right kidney. Smaller cortical cysts on the left Adrenal Glands: Unremarkable. Aorta: The aorta and proximal iliac vessels are grossly unremarkable without aneurysmal dilation. Bowel/Mesentery: Some diverticular disease of the descending and sigmoid colon. Large amount stool i n the rectal vault Abdominal Wall: Intact. Retroperitoneum: No evidence of adenopathy in the retrocrural, para-aortic, or deep pelvic regions. Bladder: Bladder is decompressed with a Crowe catheter. There is mural thickening, however. Reproductive Organs: No abnormal masses or calcifications seen. Inguinal: The inguinal region is unremarkable without evidence of adenopathy. Bony Structures: Unremarkable. CONCLUSION: 1. Large, 7.2 x 8.3 cm septated predominantly cystic mass lesion in the head of the pancreas is unch anged over multiple prior studies. This has been worked up in the past. 2. Stable prominence of the CBD with stable debris/sludge dependent portion of the gallbladder. 3. Bilateral hydronephrosis, unchanged. 4. Mild diverticular disease of the sigmoid colon without diverticulitis. 5. Large amount stool in the rectal vault. Electronically signed by: Mike Landaverde MD 06/17/2018 6:09 PM EDT
--- NOTE | 2018-06-17 18:53 | US ---
EXAM DATE: 06/17/2018 4:04 PM EDT AGE/SEX: 82 years / Female INDICATIONS: Bilateral leg swelling. CLINICAL DATA: This is the patient's initial encounter. Patient reports that signs and symptoms have been present for 1 week and indicates a pain score of 10/10. MEDICAL/SURGICAL HISTORY: Congestive heart failure. Hypertension. Diabetes. None. COMPARISON: [facility], US SEGMENTAL PRESSURES LEGS, 09/27/2015. . TECHNIQUE: Venous ultrasound of both lower extremities was performed from the inguinal ligament to t he proximal calf. Real-time, color Doppler and spectral tracing, compression and augmentation techni ques were used. FINDINGS: Difficult exam due to patient's inability to cooperate. Right Leg: The distal SFV is incompletely compressible but again, exam is limited. Concern for nonoc clusive thrombus in this location. Occlusive thrombus in the right popliteal and peroneal. Left Leg: Again, unable to completely compress the distal SFV concerning for nonocclusive thrombus i n this location. The venous system is otherwise patent. Other: Borderline prominent right iliac lymph node measures 1.8 cm in diameter but clearly contains a fatty hilum. CONCLUSION: 1. Concerning for nonocclusive thrombus in the distal SFV bilaterally. Exam is somewhat limited due to the patient's inability to cooperate. 2. Occlusive thrombus in the right popliteal vein and peroneal. 3. Borderline prominent 1.8 cm lymph node in the right iliac chain is likely reactive with a clear f atty hilum Electronically signed by: Mike Landaverde MD 06/17/2018 6:52 PM EDT
[2018-06-17] MEDS ORDERED: Heparin 10,000 UNITS/10 ML Vial (for IV use) IV.PUSH STA (19:06)
[2018-06-17] MEDS: Heparin Drip 25,000 UNIT/250 ML BAG IV.CONT PRN (20:00)
[2018-06-17 20:23] LABS: Activated Partial Thrombo Time 23.1 sec (24.3-30.1); INR 1.1 Ratio; Prothrombin Time 11.3 sec (9.8-11.6)
[2018-06-17] MEDS ORDERED: Bisacodyl 10 MG Supp RECTAL PRN (20:23)
[2018-06-17] MEDS ORDERED: Acetaminophen 325 MG Tablet PO PRN (20:23)
--- NOTE | 2018-06-17 20:25 | P.HPIM ---
History of Present Illness Primary Care Physician: Annalise Slaughter MD History of Present Illness: This is an 82-year-old female with a PMH of HTN, h/o GI Bleed and CHF (Unknown EF) who was brought to the ER by EMS for c/o abdominal pain. Pt poor historian , but tells me she feels fine except for pain in her feet. States she normally uses a walker, but hasn't walked "in weeks". Per Daughter, pt lives at home with pt's son, believes pt has had prolonged bed rest for the last 1-2wks. On arrival, BP 203/84, HR 73, O2 sat 100% on RA. WBC 11.4. INR 1.1. Creatinine 2.26, previously 1.81 on 01/16/2018. U/a w/ UTI. CXR with no acute findings. Doppler E with bilateral DVTs. CT Abdomen/Pelvis with large septated cystic mass lesion in the head of the pancreas, unchanged over multiple studies, worked up in the past, stable prominence of CBD, bilateral hydronephrosis unchanged. S/p Rocephin IV, currently on Heparin gtt. Denies abdominal pain at this time. - Diagnosis (1) UTI (urinary tract infection) (2) DVT (deep venous thrombosis) (3) ABIOLA (acute kidney injury) Review of Systems PAST FAMILY HISTORY: Reviewed. No h/o DM or CAD All other systems reviewed negative except as stated in HPI [facility] - History History Provided By: Hr Administrator / EMT - Medical History Medical History: Medical History (Last Updated 06/17/18 @ 15:50 by Corrina Gee RN) CHF (congestive heart failure) Diabetes HTN (hypertension) - Tobacco History Smoking Status: Never smoker - Alcohol History How Often Do You Have a Drink Containing Alcohol: Never - Substance Use History Substance History: No History of Abuse - Travel History Recent Travel in the [place] Within the Last 8 Weeks: No Recent Travel Out of the Country Within the Last 8 Weeks: No - Immunization History Tetanus Immunization: Unsure Medications and Allergies Active Medications: Active Medications Acetaminophen (Tylenol) 650 mg PO Q4H PRN PRN Reason: Temp > 100.4 Al Hydroxide/Mg Hydroxide (Milk Of Magnesia Liq) 30 ml PO Q12H PRN PRN Reason: Mild Constipation Bisacodyl (Dulcolax Supp) 10 mg RECTAL DAILY PRN PRN Reason: SEVERE CONSITIPATION Carvedilol (Coreg) 12.5 mg PO BID [facility] Clonidine HCl (Clonidine (Nicu) 20 Mcg/Ml Liq) 100 mcg PO TID [facility] Furosemide (Lasix) 40 mg PO DAILY [facility] Heparin Sodium/Dextrose (Heparin/D5w 25,000 U/250 Ml) 25,000 unit in 250 mls @ 0 mls/hr IV.CONT TITRATE PRN; Protocol PRN Reason: Per Protocol Sodium Chloride (Ns Inj) 1,000 mls @ 100 mls/hr IV.CONT .Q10H [facility] Lactulose (Lactulose Liq) 30 ml PO DAILY PRN PRN Reason: SEVERE CONSITIPATION Ondansetron HCl (Zofran Inj) 4 mg IV.PUSH Q6H PRN PRN Reason: NAUSEA OR VOMITING Pantoprazole Sodium (Protonix) 40 mg PO DAILY [facility] Pravastatin Sodium (Pravachol) 20 mg PO DAILY [facility] Senna/Docusate Sodium (Marisa-Colace) 1 tab PO BID [facility] Sennosides (Senokot) 17.2 mg PO Q12H PRN PRN Reason: Moderate Constipation Sodium Chloride (Ns Flush) 2 ml IV.FLUSH PRN PRN PRN Reason: FLUSH AFTER USING IV ACCESS Allergies Allergy/AdvReac Type Severity Reaction Status Date / Time No Known Allergies Allergy Verified 06/17/18 17:07 Home Medications Medication Instructions Recorded Confirmed Type amlodipine 10 mg PO DAILY 06/17/18 06/17/18 History carvedilol 12.5 mg PO BID 06/17/18 06/17/18 History clonidine HCl 0.1 mg PO TID 06/17/18 06/17/18 History furosemide 40 mg PO DAILY 06/17/18 06/17/18 History lisinopril 40 mg PO DAILY 06/17/18 06/17/18 History pantoprazole 40 mg PO DAILY 06/17/18 06/17/18 History potassium chloride 10 meq PO DAILY 06/17/18 06/17/18 History pravastatin 20 mg PO DAILY 06/17/18 06/17/18 History Exam Vital signs: Vital Signs 06/17/18 15:47 06/17/18 17:34 06/17/18 17:43 Pulse Rate 73 68 Respiratory Rate 21 19 25 H Blood Pressure 203/84 H 166/77 H Pulse Oximetry 100 98 Intake & Output 06/17/18 06/17/18 06/18/18 06:59 18:59 06:59 Intake Total 100 / 100 Balance 100 / 100 Weight 86.183 kg Intake: IV 100 / 100 Rocephin Inj 1,000 MG In NS Inj 100 / 100 100 ML @ 200 mls/hr IV.SIG ONCE ONE Rx#:[id number] Narrative: PE: GENERAL: Elderly black female in no acute distress. SKIN: Focused skin assessment warm and dry. HEENT: PERRLA, EOMI. No scleral icterus or conjunctival pallor. No lid lag or facial droop. CARDIOVASCULAR: Regular rate and rhythm. No obvious murmurs to auscultation. No chest tenderness to palpation. RESPIRATORY: No obvious rhonchi or wheezing. Clear to auscultation. Breath sounds equal bilaterally. GASTROINTESTINAL: Abdomen soft, non-tender, nondistended. BS normal. MUSCULOSKELETAL: Extremities without clubbing, cyanosis. Bilateral lower extremity edema 2+. No obvious deformities. NEUROLOGICAL: Awake, alert and oriented to person and place, knows she's in the hospital. No focal neurologic deficits. Moving both upper and lower extremities spontaneously. PSYCHIATRIC: Appropriate mood and affect. Insight and judgment normal. Results - Labs CBC & Chem 7: 06/17/18 16:00 06/17/18 16:00 Labs: Short CBC 06/17/18 Range/Units 16:00 WBC 11.4 H (4.0-11.0) th/mm3 Hgb 11.9 (11.6-15.3) gm/dL Hct 35.9 (35.0-46.0) % Plt Count 401 (150-450) th/mm3 [facility] 06/17/18 16:00 Sodium 148 H Potassium 3.2 L Chloride 108 H Carbon Dioxide 29.1 BUN 41 H Creatinine 2.26 H Calcium 8.1 L Liver Function 06/17/18 Range/Units 16:00 Total Bilirubin 0.4 (0.2-1.0) mg/dL AST 16 (15-37) U/L ALT 12 (10-53) U/L Alkaline Phosphatase 72 (45-117) U/L Albumin 2.5 L (3.4-5.0) g/dL Urine 06/17/18 Range/Units 16:44 Urine Color Yellow (Yellw/Straw) Urine Clarity Cloudy H (Clear) Urine pH 6.0 (5.0-8.5) Ur Specific [place] 1.011 (1.002-1.035) Urine Protein 100 H (Neg-Trace) mg/dL Urine Glucose (UA) Negative (Negative) mg/dL - Imaging Impressions Chest X-Ray 06/17/18 16:03 CONCLUSION: No acute cardiopulmonary disease. Venous Doppler Study 06/17/18 16:04 CONCLUSION: 1. Concerning for nonocclusive thrombus in the distal SFV bilaterally. Exam is somewhat limited due to the patient's inability to cooperate. 2. Occlusive thrombus in the right popliteal vein and peroneal. 3. Borderline prominent 1.8 cm lymph node in the right iliac chain is likely reactive with a clear fatty hilum Hip X-Ray 06/17/18 16:13 CONCLUSION: No definite bony fracture or joint dislocation is demonstrated. Patient is scheduled for CT abdomen/pelvis which can further help evaluate this area. Abdomen/Pelvis CT 06/17/18 16:54 CONCLUSION: 1. Large, 7.2 x 8.3 cm septated predominantly cystic mass lesion in the head of the pancreas is unchanged over multiple prior studies. This has been worked up in the past. 2. Stable prominence of the CBD with stable debris/sludge dependent portion of the gallbladder. 3. Bilateral hydronephrosis, unchanged. 4. Mild diverticular disease of the sigmoid colon without diverticulitis. 5. Large amount stool in the rectal vault. Caprini VTE Risk Assessment Caprini VTE Risk Assessment: Moderate/High Risk (score >= 2) Caprini Risk Assessment Model: Point Value = 1 Point Value = 2 Point Value = 3 Point Value = 5 Age 41-60 Minor surgery BMI > 25 kg/m2 Swollen legs Varicose veins or History of unexplained or recurrent spontaneous Oral contraceptives or hormone replacement Sepsis (< 1 month) Serious lung disease, including pneumonia (< 1 month) Abnormal pulmonary function Acute myocardial infarction Congestive heart failure (< 1 month) History of inflammatory bowel disease Medical patient at bed rest Age 61-74 Arthroscopic surgery Major open surgery (> 45 min) Laparoscopic surgery (> 45 min) Malignancy Confined to bed (> 72 hours) Immobilizing plaster cast Central venous access Age >= 75 History of VTE Family history of VTE Factor V Leiden Prothrombin [id number] Lupus anticoagulant Anticardiolipin antibodies Elevated serum homocysteine Heparin-induced thrombocytopenia Other congenital or acquired thrombophilia Stroke (< 1 month) Elective arthroplasty Hip, pelvis, or leg fracture Acute spinal cord injury (< 1 month) Prophylaxis Regimen: Total Risk Factor Score Risk Level Prophylaxis Regimen 0-1 Low Early ambulation 2 Moderate Order ONE of the following: *Sequential Compression Device (SCD) *Heparin 5000 units SQ BID 3-4 Higher Order ONE of the following medications: *Heparin 5000 units SQ TID *Enoxaparin/Lovenox 40 mg SQ daily (WT < 150 kg, CrCl > 30 mL/min) *Enoxaparin/Lovenox 30 mg SQ daily (WT < 150 kg, CrCl > 10-29 mL/min) *Enoxaparin/Lovenox 30 mg SQ BID (WT < 150 kg, CrCl > 30 mL/min) AND/OR *Sequential Compression Device (SCD) 5 or more Highest Order ONE of the following medications: *Heparin 5000 units SQ TID (Preferred with Epidurals) *Enoxaparin/Lovenox 40 mg SQ daily (WT < 150 kg, CrCl > 30 mL/min) *Enoxaparin/Lovenox 30 mg SQ daily (WT < 150 kg, CrCl > 10-29 mL/min) *Enoxaparin/Lovenox 30 mg SQ BID (WT < 150 kg, CrCl > 30 mL/min) AND *Sequential Compression Device (SCD) Assessment and Plan - Assessment (1) UTI (urinary tract infection) Code(s): N39.0 - Urinary tract infection, site not specified Status: Acute (2) DVT (deep venous thrombosis) Code(s): I82.409 - Acute embolism and thrombosis of unspecified deep veins of unspecified lower extremity Status: Acute (3) ABIOLA (acute kidney injury) Code(s): N17.9 - Acute kidney failure, unspecified Status: Acute - Plan A/P: 1. UTI: U/a w/ UTI, +WBC 11.4, s/p Rocephin in ER, will continue w/ IV Abx, monitor I/O, IVF for hydration-caution w/ h/o CHF. 2. Bilateral LE DVT: +bilateral lower extremity edema, limited mobility in the last 1-2wks per pt and daughter, likely etiology of DVT. Currently on Heparin gtt, will continue, transition to PO anticoagulation. H/o GI Bleed on last admit 12/2017, monitor closely, consider IVC Filter for recurrent GI Bleed. Repeat labs in am. 3. ABIOLA: Creatinine 2.26, previously 1.81 on 01/12/18, IVF for hydration, monitor I/O, continue w/ IV Abx for UTI, repeat labs in am. 4. DVT Prophylaxis: Heparin gtt 5. Social work for d/c planning as needed. 6. Case discussed w/ ER physician at length, labs/records/imaging reviewed by me.
[2018-06-17] MEDS ORDERED: Sodium Chloride 0.9% 2 ML Flush PRN IV.FLUSH (20:45)
[2018-06-17] MEDS: Sodium Chloride 0.9% 2 ML Flush BID IV.FLUSH SCH (22:02)
[2018-06-17] MEDS: Carvedilol 12.5 MG Tablet PO SCH (22:02)
[2018-06-17] MEDS: Senna/Docusate Sodium 8.6/50 MG Tablet PO SCH (22:02)
[2018-06-17] MEDS: Sod Chloride 0.9% Inj 1,000 ML IV.CONT SCH (23:33)
[2018-06-18 01:25] LABS: Baso # (Auto) 0.1 th/mm3 (0.0-0.2); Baso % (Auto) 0.5 % (0.0-2.0); Eos # (Auto) 0.1 th/mm3 (0.0-0.4); Eos % (Auto) 0.7 % (0.0-4.0); Hematocrit 34.4 % (35.0-46.0); Hemoglobin 11.8 gm/dL (11.6-15.3); Lymph # (Auto) 1.4 th/mm3 (1.0-4.8); Lymph % (Auto) 11.8 % (9.0-44.0); Mean Corpuscular HGB Conc 34.3 % (32.0-36.0); Mean Corpuscular Hemoglobin 27.4 pg (27.0-34.0); Mean Platelet Volume 7.5 fL (7.0-11.0); Mono # (Auto) 0.6 th/mm3 (0.0-0.9); Mono % (Auto) 5.2 % (0.0-8.0); Neut # (Auto) 9.6 th/mm3 (1.8-7.7); Neut % (Auto) 81.8 % (16.0-70.0); Platelet Count 344 th/mm3 (150-450); Red Blood Count 4.29 mil/mm3 (4.00-5.30); Red Cell Distribution Width 15.2 % (11.6-17.2); White Blood Count 11.7 th/mm3 (4.0-11.0)
[2018-06-18 01:52] LABS: Alanine Aminotransferase 11 U/L (10-53); Alkaline Phosphatase 64 U/L (45-117)
[2018-06-18 02:03] LABS: Albumin 2.2 g/dL (3.4-5.0); Anion Gap 10 meq/L (5-15); Aspartate Aminotransferase 24 U/L (15-37); Blood Urea Nitrogen 47 mg/dL (7-18); Carbon Dioxide 26.9 meq/L (21.0-32.0); Chloride 110 meq/L (98-107); Glomerular Filtration Rate 24 mL/min (>89); Glucose,Random 119 mg/dL (74-106); Sodium 147 meq/L (136-145)
[2018-06-18 02:04] LABS: Potassium 3.7 meq/L (3.5-5.1)
[2018-06-18] MEDS ORDERED: Warfarin Consult Pharmacy OTHER PRN (07:40)
[2018-06-18] MEDS ORDERED: Furosemide 40 MG Tablet PO SCH (09:00)
[2018-06-18] MEDS: Sod Chloride 0.9% Inj 1,000 ML IV.CONT SCH (10:18)
[2018-06-18] MEDS: Senna/Docusate Sodium 8.6/50 MG Tablet PO SCH ×2 (10:20→21:57)
[2018-06-18] MEDS: Carvedilol 12.5 MG Tablet PO SCH ×2 (10:20→22:00)
[2018-06-18] MEDS: Sodium Chloride 0.9% 2 ML Flush BID IV.FLUSH SCH ×2 (10:23→21:58)
--- NOTE | 2018-06-18 13:02 | P.PN ---
Subjective Interval history: Follow-up on patient with history of GI bleed, bilateral DVTs. Patient seen and examined. Patient denies any complaints. She is asking when will breakfast be served. She denies any chest pain, palpitations, dizziness or shortness of breath. She denies any nausea, vomiting or abdominal pain. Physical Exam Vital signs: Vital Signs 06/17/18 15:47 06/17/18 17:34 06/17/18 17:43 Temperature Pulse Rate 73 68 Respiratory Rate 21 19 25 H Blood Pressure 203/84 H 166/77 H Pulse Oximetry 100 98 06/18/18 00:00 06/18/18 04:00 06/18/18 08:00 Temperature 98.0 F 98.7 F 98.3 F Pulse Rate 64 70 71 Respiratory Rate 18 18 16 Blood Pressure 136/61 149/65 H 146/63 H Pulse Oximetry 99 97 100 06/18/18 12:00 Temperature 98.3 F Pulse Rate 71 Respiratory Rate 16 Blood Pressure 168/70 H Pulse Oximetry 99 Intake & Output 06/17/18 06/18/18 06/18/18 18:59 06:59 18:59 Intake Total 100 / 100 0 / 0 1000 / 1000 Output Total 500 / 500 Balance 100 / 100 -500 / -500 1000 / 1000 Weight 86.183 kg 86.183 kg Intake: IV 100 / 100 1000 / 1000 NS Inj 1,000 ML @ 100 mls/hr IV 1000 / 1000 .CONT .Q10H [facility] Rx#:[id number] Rocephin Inj 1,000 MG In NS Inj 100 / 100 100 ML @ 200 mls/hr IV.SIG ONCE ONE Rx#:[id number] Oral 0 / 0 Output: Urine 500 / 500 Other: Weight On Admission 86.183 kg Narrative: GENERAL: WDWN elderly female patient, INAD. Awake and alert. Appears comfortable. SKIN: Warm and dry. HEENT: Atraumatic. Normocephalic. Pupils equal and round. No scleral icterus. No injection or drainage. No nasal bleeding or discharge. Mucous membranes pink and moist. NECK: Trachea midline. CARDIOVASCULAR: Regular rate and rhythm. RESPIRATORY: No accessory muscle use. Clear to auscultation. Breath sounds equal bilaterally. GASTROINTESTINAL: Abdomen soft, non-tender, nondistended. +BS. MUSCULOSKELETAL: Extremities without clubbing or cyanosis. Bilateral lower extremity edema 2+. NEUROLOGICAL: Awake and alert. Partially oriented. No obvious cranial nerve deficits. Able to move all extremities spontaneously. Normal speech. PSYCHIATRIC: Appropriate mood and affect; insight and judgment normal. - Urinary Catheter Management Indwelling Urethral Catheter Cath placed during this visit: yes Reason for continuing: Hourly intake/output Insertion date: 06/17/18 Insertion time: 16:45 Results - Labs CBC & Chem 7: 06/18/18 01:05 06/20/18 04:24 Laboratory Results - last 24 hr 06/17/18 06/17/18 06/17/18 16:00 16:00 16:00 WBC 11.4 H RBC 4.42 Hgb 11.9 Hct 35.9 MCV 81.3 MCH 27.0 MCHC 33.1 RDW 15.1 Plt Count 401 MPV 7.9 Neut % (Auto) 81.0 H Lymph % (Auto) 11.7 [place] % (Auto) 5.1 Eos % (Auto) 1.8 Baso % (Auto) 0.4 Neut # (Auto) 9.2 H Lymph # (Auto) 1.3 [place] # (Auto) 0.6 Eos # (Auto) 0.2 Baso # (Auto) 0.0 WBC Differential . Differential Comment Auto diff final PT INR APTT Sodium 148 H Potassium 3.2 L Chloride 108 H Carbon Dioxide 29.1 Anion Gap 11 BUN 41 H Creatinine 2.26 H Estimated GFR 25 L Random Glucose 144 H Calcium 8.1 L Magnesium 2.1 Total Bilirubin 0.4 AST 16 ALT 12 Alkaline Phosphatase 72 B-Natriuretic Peptide 632 H Total Protein 7.7 Albumin 2.5 L Lipase 86 Urine Color Urine Clarity Urine pH Ur Specific [place] Urine Protein Urine Glucose (UA) Urine Ketones Urine Occult Blood Urine Nitrate Urine Bilirubin Urine Urobilinogen Ur Leukocyte Esterase Urine RBC Urine WBC Urine WBC Clumps Ur Squamous Epith Cells Urine Bacteria Urine Mucus Urine Yeast Micro UA Comment Ur Microscopic Review Urine Culture Comments 06/17/18 06/17/18 06/18/18 16:44 19:58 01:05 WBC RBC Hgb Hct MCV MCH MCHC RDW Plt Count MPV Neut % (Auto) Lymph % (Auto) [place] % (Auto) Eos % (Auto) Baso % (Auto) Neut # (Auto) Lymph # (Auto) [place] # (Auto) Eos # (Auto) Baso # (Auto) WBC Differential Differential Comment PT 11.3 INR 1.1 APTT 23.1 L 74.6 H D Sodium Potassium Chloride Carbon Dioxide Anion Gap BUN Creatinine Estimated GFR Random Glucose Calcium Magnesium Total Bilirubin AST ALT Alkaline Phosphatase B-Natriuretic Peptide Total Protein Albumin Lipase Urine Color Yellow Urine Clarity Cloudy H Urine pH 6.0 Ur Specific [place] 1.011 Urine Protein 100 H Urine Glucose (UA) Negative Urine Ketones Negative Urine Occult Blood Moderate H Urine Nitrate Negative Urine Bilirubin Negative Urine Urobilinogen Less than 2 Ur Leukocyte Esterase Large H Urine RBC 57 H Urine WBC Urine WBC Clumps Many H Ur Squamous Epith Cells 6 Urine Bacteria Few H Urine Mucus Few H Urine Yeast Rare H Micro UA Comment Cath-culture ind Ur Microscopic Review Not Reportable Urine Culture Comments Cath-cult indicated 06/18/18 06/18/18 01:05 01:05 WBC 11.7 H RBC 4.29 Hgb 11.8 Hct 34.4 L MCV 80.0 MCH 27.4 MCHC 34.3 RDW 15.2 Plt Count 344 MPV 7.5 Neut % (Auto) 81.8 H Lymph % (Auto) 11.8 [place] % (Auto) 5.2 Eos % (Auto) 0.7 Baso % (Auto) 0.5 Neut # (Auto) 9.6 H Lymph # (Auto) 1.4 [place] # (Auto) 0.6 Eos # (Auto) 0.1 Baso # (Auto) 0.1 WBC Differential . Differential Comment Auto diff final PT INR APTT Sodium 147 H Potassium 3.7 Chloride 110 H Carbon Dioxide 26.9 Anion Gap 10 BUN 47 H Creatinine 2.34 H Estimated GFR 24 L Random Glucose 119 H Calcium 8.0 L Magnesium Total Bilirubin 0.4 AST 24 ALT 11 Alkaline Phosphatase 64 B-Natriuretic Peptide Total Protein 7.0 D Albumin 2.2 L Lipase Urine Color Urine Clarity Urine pH Ur Specific [place] Urine Protein Urine Glucose (UA) Urine Ketones Urine Occult Blood Urine Nitrate Urine Bilirubin Urine Urobilinogen Ur Leukocyte Esterase Urine RBC Urine WBC Urine WBC Clumps Ur Squamous Epith Cells Urine Bacteria Urine Mucus Urine Yeast Micro UA Comment Ur Microscopic Review Urine Culture Comments - Imaging Impressions Chest X-Ray 06/17/18 16:03 CONCLUSION: No acute cardiopulmonary disease. Venous Doppler Study 06/17/18 16:04 CONCLUSION: 1. Concerning for nonocclusive thrombus in the distal SFV bilaterally. Exam is somewhat limited due to the patient's inability to cooperate. 2. Occlusive thrombus in the right popliteal vein and peroneal. 3. Borderline prominent 1.8 cm lymph node in the right iliac chain is likely reactive with a clear fatty hilum Hip X-Ray 06/17/18 16:13 CONCLUSION: No definite bony fracture or joint dislocation is demonstrated. Patient is scheduled for CT abdomen/pelvis which can further help evaluate this area. Abdomen/Pelvis CT 06/17/18 16:54 CONCLUSION: 1. Large, 7.2 x 8.3 cm septated predominantly cystic mass lesion in the head of the pancreas is unchanged over multiple prior studies. This has been worked up in the past. 2. Stable prominence of the CBD with stable debris/sludge dependent portion of the gallbladder. 3. Bilateral hydronephrosis, unchanged. 4. Mild diverticular disease of the sigmoid colon without diverticulitis. 5. Large amount stool in the rectal vault. Assessment and Plan - Assessment (1) UTI (urinary tract infection) Code(s): N39.0 - Urinary tract infection, site not specified Status: Acute (2) DVT (deep venous thrombosis) Code(s): I82.409 - Acute embolism and thrombosis of unspecified deep veins of unspecified lower extremity Status: Acute (3) ABIOLA (acute kidney injury) Code(s): N17.9 - Acute kidney failure, unspecified Status: Acute - Plan 82-year-old female with a PMH of HTN, h/o GI Bleed and CHF (Unknown EF) who was brought to the ER by EMS for c/o abdominal pain and bilateral foot pain found to have bilateral DVTs and UTI. UTI: U/a w/ UTI, +WBC 11.4, s/p Rocephin in ER CT abd/pelvis shows bilateral hydronephrosis, unchanged recent Ecoli UTI treated 12/2017 will continue w/ IV Ceftriaxone charlton catheter in place - placed in the ED monitor I/O IVF for hydration-caution w/ h/o CHF. d/c IVF. Follow up on urine culture results Bilateral LE DVT: +bilateral lower extremity edema, limited mobility in the last 1-2wks per pt and daughter, likely etiology of DVT. Currently on Heparin gtt, will continue H/o GI Bleed on last admit 12/2017, monitor closely, consider IVC Filter for recurrent GI Bleed. Will consult Hematology for anticoagulation recommendations, appreciate assistance ABIOLA on CKD: Creatinine 2.26, previously 1.81 on 01/12/18 repeat creatinine 2.34 Consult Nephrology, appreciate assistance hold Lasix monitor I/O continue w/ IV Abx for UTI avoid nephrotoxic agents continue to monitor kidney function closely CHF, does not appear decompensated BNP 632 d/c IVF hold Lasix secondary to ABIOLA as above continue on BB monitor fluid status monitor respiratory function Hypertension BP acceptable Continue on Clonidine and Coreg Continue to monitor BP and adjust treatment accordingly Constipation large amount of stool noted in rectal vault on CT, suspect contributing to element of urinary retention and secondary UTI bowel regimen monitor for BM Hx of GIB December 2017 with hgb of 6.8 requiring transfusion of 4 units of blood s/p EGD and colonoscopy that admission revealing gastritis, polyps and diverticuli No e/o active bleeding Continue on Protonix Monitor closely while on Heparin gtt Large 7.2x8.3 cystic mass lesion head pancreas -chronic, unchanged, hx of previous workup DVT Prophylaxis: Heparin gtt Code Status: Full Discussed Condition With: patient, nursing staff, Dr. Dorado
[2018-06-18] MEDS: Heparin Drip 25,000 UNIT/250 ML BAG IV.CONT PRN (14:05)
[2018-06-18] MEDS: Polyethylene Glycol 3350 17 GM Packet PO SCH (14:22)
--- NOTE | 2018-06-18 14:46 | ECG ---
Date Performed: 06/17/2018 Time Performed: 16:48:41 PTAGE: 82 years EKG: Sinus rhythm MARKED LEFT AXIS DEVIATION INTRAVENTRICULAR CONDUCTION DELAY ABNORMAL ECG PREVIOUS TRACING : 01/12/2018 21.18 Since the previous tracing, no significant change noted DOCTOR: Arron Faye Interpretating Date/Time 06/18/2018 14:44:15
--- NOTE | 2018-06-18 17:51 | P.CONNP ---
<Valeria Rivero - Last Filed: 06/18/18 17:34> History of Present Illness Service: Nephrology Consult date: 06/18/18 Requesting Physician: Rocío Meléndez Reason for Consult: Acute on chronic kidney injury Primary Care Provider: Annalise Slaughter MD History of Present Illness: Patient is a 82 year old female with a past medical history of Hypertension, hyperlipidemia, GERD, chronic kidney disease with recent acute kidney injury in December. Lives with family and presented to emergency room with bilateral lower extremity edema and per family increased weakness over the past week. Nephrology is consulted acute kidney injury with a creatinine of 2.34. Has chronic kidney disease with a baseline creatinine of 1.8 - 2.0. Has stage 3 - 4 chronic kidney disease from most likely hypertension or renovascular disease. Patient is oriented to self only. Reports that she hurts all over especially in her legs. Denies any shortness of breath, chest pain, nausea, or vomiting. Has indwelling charlton catheter with good urinary output. Ct of abdomen with bilateral hydronephrosis which is unchanged. PMFSH - History History Provided By: Patient, Can Capper / EMT - Medical History Medical History: Medical History (Last Reviewed 06/18/18 @ 08:50 by Aden Burt) CHF (congestive heart failure) Diabetes HTN (hypertension) - Tobacco History Second Hand Smoke Exposure: No Smoking Status: Never smoker - Alcohol History How Often Do You Have a Drink Containing Alcohol: Never - Substance Use History Substance History: No History of Abuse - Travel History Recent Travel in the [place] Within the Last 8 Weeks: No Recent Travel Out of the Country Within the Last 8 Weeks: No - Immunization History Tetanus Immunization: Unsure Medications and Allergies Allergies Allergy/AdvReac Type Severity Reaction Status Date / Time No Known Allergies Allergy Verified 06/17/18 17:07 Home Medications Medication Instructions Recorded Confirmed Type amlodipine 10 mg PO DAILY 06/17/18 06/17/18 History carvedilol 12.5 mg PO BID 06/17/18 06/17/18 History clonidine HCl 0.1 mg PO TID 06/17/18 06/17/18 History furosemide 40 mg PO DAILY 06/17/18 06/17/18 History lisinopril 40 mg PO DAILY 06/17/18 06/17/18 History pantoprazole 40 mg PO DAILY 06/17/18 06/17/18 History potassium chloride 10 meq PO DAILY 06/17/18 06/17/18 History pravastatin 20 mg PO DAILY 06/17/18 06/17/18 History Active Medications: Active Medications Acetaminophen (Tylenol) 650 mg PO Q4H PRN PRN Reason: Temp > 100.4 Al Hydroxide/Mg Hydroxide (Milk Of Magnesia Liq) 30 ml PO Q12H PRN PRN Reason: Mild Constipation Bisacodyl (Dulcolax Supp) 10 mg RECTAL DAILY PRN PRN Reason: SEVERE CONSITIPATION Carvedilol (Coreg) 12.5 mg PO BID [facility] Last Admin: 06/18/18 10:20 Dose: 12.5 mg Clonidine HCl (Catapres) 0.1 mg PO TID [facility] Last Admin: 06/18/18 14:22 Dose: 0.1 mg Furosemide (Lasix) 40 mg PO DAILY [facility] Last Admin: 06/18/18 10:20 Dose: 40 mg Heparin Sodium/Dextrose (Heparin/D5w 25,000 U/250 Ml) 25,000 unit in 250 mls @ 0 mls/hr IV.CONT TITRATE PRN; Protocol PRN Reason: Per Protocol Last Titration: 06/18/18 15:35 Dose: 0 units/hr, 0 mls/hr Ceftriaxone Sodium 1,000 mg/ (Sodium Chloride) 100 mls @ 200 mls/hr IV.SIG Q24H [facility] Lactulose (Lactulose Liq) 30 ml PO DAILY PRN PRN Reason: SEVERE CONSITIPATION Ondansetron HCl (Zofran Inj) 4 mg IV.PUSH Q6H PRN PRN Reason: NAUSEA OR VOMITING Pantoprazole Sodium (Protonix) 40 mg PO DAILY [facility] Last Admin: 06/18/18 10:21 Dose: 40 mg Polyethylene Glycol (Miralax) 17 gm PO DAILY [facility] Last Admin: 06/18/18 14:22 Dose: Not Given Pravastatin Sodium (Pravachol) 20 mg PO DAILY [facility] Last Admin: 06/18/18 10:20 Dose: 20 mg Senna/Docusate Sodium (Marisa-Colace) 1 tab PO BID [facility] Last Admin: 06/18/18 10:20 Dose: 1 tab Sennosides (Senokot) 17.2 mg PO Q12H PRN PRN Reason: Moderate Constipation Sodium Chloride (Ns Flush) 2 ml IV.FLUSH BID [facility] Last Admin: 06/18/18 10:23 Dose: Not Given Sodium Chloride (Ns Flush) 2 ml IV.FLUSH PRN PRN PRN Reason: FLUSH AFTER USING IV ACCESS Exam Vital signs: Vital Signs 06/17/18 17:43 06/18/18 00:00 06/18/18 04:00 Temperature 98.0 F 98.7 F Pulse Rate 68 64 70 Respiratory Rate 25 H 18 18 Blood Pressure 166/77 H 136/61 149/65 H Pulse Oximetry 98 99 97 06/18/18 08:00 06/18/18 12:00 06/18/18 15:51 Temperature 98.3 F 98.3 F 98.7 F Pulse Rate 71 71 60 Respiratory Rate 16 16 16 Blood Pressure 146/63 H 168/70 H 175/71 H Pulse Oximetry 100 99 100 Intake & Output 06/17/18 06/18/18 06/18/18 18:59 06:59 18:59 Intake Total 100 / 100 0 / 0 1750 / 1750 Output Total 500 / 500 Balance 100 / 100 -500 / -500 1750 / 1750 Weight 86.183 kg 86.183 kg Intake: IV 100 / 100 1750 / 1750 Heparin/D5W 25,000 U/250 mL 25, 250 / 250 000 unit In 250 ml @ Per Protocol IV.CONT TITRATE PRN Rx #:[id number] NS Inj 1,000 ML @ 100 mls/hr IV 1500 / 1500 .CONT .Q10H [facility] Rx#:[id number] Rocephin Inj 1,000 MG In NS Inj 100 / 100 100 ML @ 200 mls/hr IV.SIG ONCE ONE Rx#:[id number] Oral 0 / 0 Output: Urine 500 / 500 Other: Weight On Admission 86.183 kg Narrative: GENERAL: Alert to self only. NAD SKIN: Warm and dry. NECK: Supple, trachea midline. No JVD. CARDIOVASCULAR: Regular rate and rhythm without murmurs, gallops, or rubs. RESPIRATORY: Breath sounds equal bilaterally. No accessory muscle use. GASTROINTESTINAL: Abdomen soft, non-tender, nondistended. GENITOURINARY: Indwelling Charlton catheter MUSCULOSKELETAL: No cyanosis, bilateral lower extremity edema. Results - Lab Results 06/18/18 01:05 06/18/18 01:05 Most recent lab results Calcium 8.0 mg/dL (8.5-10.1) L 06/18/18 01:05 Magnesium 2.1 mg/dL (1.5-2.5) 06/17/18 16:00 Assessment and Plan - Assessment (1) ABIOLA (acute kidney injury) Code(s): N17.9 - Acute kidney failure, unspecified Status: Acute (2) UTI (urinary tract infection) Code(s): N39.0 - Urinary tract infection, site not specified Status: Acute (3) DVT (deep venous thrombosis) Code(s): I82.409 - Acute embolism and thrombosis of unspecified deep veins of unspecified lower extremity Status: Acute - Plan Acute kidney injury with a creatinine of 2.34. ABIOLA possible prerenal vs ATN from urinary tract infection, poor intake and diuretic use. Has chronic kidney disease with a baseline creatinine of 1.8 - 2.0. 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 Ct of abdomen with bilateral hydronephrosis which is unchanged. Hypertensive, will add amlodipine Maintain indwelling Charlton catheter Monitor I+O Avoid nephrotoxins Continue to hold lasix and encourage oral intake. UTI, continue antibiotics Will follow urinary output and BMP <Teresa Ramey Q - Last Filed: 06/20/18 18:44> History of Present Illness Primary Care Provider: Annalise Slaughter MD [facility] - Medical History Medical History: Medical History (Last Reviewed 06/18/18 @ 08:50 by Aden Burt) CHF (congestive heart failure) Diabetes HTN (hypertension) Medications and Allergies Active Medications: Active Medications Acetaminophen (Tylenol) 650 mg PO Q4H PRN PRN Reason: Temp > 100.4 Al Hydroxide/Mg Hydroxide (Milk Of Magnesia Liq) 30 ml PO Q12H PRN PRN Reason: Mild Constipation Amlodipine Besylate (Norvasc) 10 mg PO DAILY [facility] Last Admin: 06/20/18 08:01 Dose: 10 mg Apixaban (Eliquis) 5 mg PO BID [facility] Stop: 06/27/18 10:59 Last Admin: 06/20/18 11:43 Dose: 5 mg Bisacodyl (Dulcolax Supp) 10 mg RECTAL DAILY PRN PRN Reason: SEVERE CONSITIPATION Carvedilol (Coreg) 6.25 mg PO BID [facility] Last Admin: 06/20/18 08:01 Dose: 6.25 mg Clonidine HCl (Catapres) 0.1 mg PO TID [facility] Last Admin: 06/20/18 18:22 Dose: 0.1 mg Furosemide (Lasix) 40 mg PO DAILY [facility] Last Admin: 06/18/18 10:20 Dose: 40 mg Hydralazine HCl (Apresoline) 25 mg PO TID [facility] Last Admin: 06/20/18 18:22 Dose: 25 mg Lactic Acid (Lac-Hydrin 12% Lotion) 1 applicatio TOPICAL BID [facility] Last Admin: 06/20/18 08:01 Dose: 1 applicatio Lactulose (Lactulose Liq) 30 ml PO DAILY PRN PRN Reason: SEVERE CONSITIPATION Ondansetron HCl (Zofran Inj) 4 mg IV.PUSH Q6H PRN PRN Reason: NAUSEA OR VOMITING Pantoprazole Sodium (Protonix) 40 mg PO DAILY [facility] Last Admin: 06/20/18 08:01 Dose: 40 mg Polyethylene Glycol (Miralax) 17 gm PO DAILY [facility] Last Admin: 06/20/18 08:01 Dose: 17 gm Pravastatin Sodium (Pravachol) 20 mg PO DAILY [facility] Last Admin: 06/20/18 08:01 Dose: 20 mg Senna/Docusate Sodium (Marisa-Colace) 1 tab PO BID [facility] Last Admin: 06/20/18 08:00 Dose: 1 tab Sennosides (Senokot) 17.2 mg PO Q12H PRN PRN Reason: Moderate Constipation Sodium Chloride (Ns Flush) 2 ml IV.FLUSH BID [facility] Last Admin: 06/20/18 08:01 Dose: 2 ml Sodium Chloride (Ns Flush) 2 ml IV.FLUSH PRN PRN PRN Reason: FLUSH AFTER USING IV ACCESS Exam Vital signs: Vital Signs 06/19/18 19:48 06/20/18 01:24 06/20/18 04:00 Temperature 98.1 F 97.9 F 98.2 F Pulse Rate 66 62 59 L Respiratory Rate 17 17 16 Blood Pressure 152/61 H 135/58 L 148/67 H Pulse Oximetry 95 96 96 06/20/18 07:53 06/20/18 10:17 06/20/18 12:00 Temperature 97.6 F 97.7 F Pulse Rate 68 52 L 56 L Respiratory Rate 16 18 Blood Pressure 189/59 H 204/79 H 185/71 H Pulse Oximetry 100 06/20/18 16:00 Temperature 98.2 F Pulse Rate 77 Respiratory Rate 18 Blood Pressure 168/78 H Pulse Oximetry 95 Intake & Output 06/19/18 06/20/18 06/20/18 18:59 06:59 18:59 Intake Total 200 / 200 500 / 500 Output Total 600 / 600 550 / 550 Balance 200 / 200 -600 / -600 -50 / -50 Intake: IV 200 / 200 Heparin/D5W 25,000 U/250 mL 25, 200 / 200 000 unit In 250 ml @ Per Protocol IV.CONT TITRATE PRN Rx #:[id number] Oral 500 / 500 Output: Urine Amount (Catheter) 600 / 600 550 / 550 Indwelling Urethral Catheter 600 / 600 550 / 550 Results - Lab Results 06/18/18 01:05 06/20/18 04:24 Most recent lab results Calcium 7.8 mg/dL (8.5-10.1) L 06/20/18 04:24 Magnesium 2.1 mg/dL (1.5-2.5) 06/17/18 16:00 Assessment and Plan - Assessment (1) ABIOLA (acute kidney injury) Code(s): N17.9 - Acute kidney failure, unspecified Status: Acute (2) UTI (urinary tract infection) Code(s): N39.0 - Urinary tract infection, site not specified Status: Acute (3) DVT (deep venous thrombosis) Code(s): I82.409 - Acute embolism and thrombosis of unspecified deep veins of unspecified lower extremity Status: Acute - Plan Patient seen and examine, agree with above. Chronic kidney disease and develop ABIOLA. BP is elevated, Amlodipine added. Follow the urine out put and BMP.
[2018-06-19 06:46] LABS: INR 1.1 Ratio; Prothrombin Time 11.4 sec (9.8-11.6)
[2018-06-19] MEDS: amLODIPine 10 MG Tablet PO SCH (09:19)
[2018-06-19] MEDS: Senna/Docusate Sodium 8.6/50 MG Tablet PO SCH ×2 (09:20→20:51)
[2018-06-19] MEDS: Sodium Chloride 0.9% 2 ML Flush BID IV.FLUSH SCH ×2 (09:20→20:51)
[2018-06-19] MEDS: Polyethylene Glycol 3350 17 GM Packet PO SCH (09:20)
[2018-06-19] MEDS: Carvedilol 6.25 MG Tablet PO SCH ×2 (09:20→20:51)
--- NOTE | 2018-06-19 09:32 | P.PN ---
Subjective Interval history: Follow-up on patient with history of GI bleed, bilateral DVTs. Patient seen and examined. Patient states she feels okay. She denies any acute medical complaints. She denies any fever or chills. She denies any cough, chest pain or dyspnea. She denies any N/V or abdominal pain. Physical Exam Vital signs: Vital Signs 06/18/18 12:00 06/18/18 15:51 06/18/18 20:00 Temperature 98.3 F 98.7 F 98.1 F Pulse Rate 71 60 61 Respiratory Rate 16 16 16 Blood Pressure 168/70 H 175/71 H 143/63 H Pulse Oximetry 99 100 98 06/18/18 23:59 06/19/18 04:00 06/19/18 08:21 Temperature 97.6 F 97.7 F 97.5 F L Pulse Rate 52 L 51 L 69 Respiratory Rate 16 16 18 Blood Pressure 128/60 162/55 H 148/54 H Pulse Oximetry 97 97 98 Intake & Output 06/18/18 06/19/18 06/19/18 18:59 06:59 18:59 Intake Total 1750 / 1750 820 / 820 Balance 1750 / 1750 820 / 820 Intake: IV 1750 / 1750 100 / 100 Heparin/D5W 25,000 U/250 mL 25, 250 / 250 000 unit In 250 ml @ Per Protocol IV.CONT TITRATE PRN Rx #:[id number] NS Inj 1,000 ML @ 100 mls/hr IV 1500 / 1500 .CONT .Q10H [facility] Rx#:[id number] Rocephin Inj 1,000 MG In NS Inj 100 / 100 100 ML @ 200 mls/hr IV.SIG Q24H [facility] Rx#:[id number] Oral 720 / 720 Narrative: GENERAL: WDWN elderly female patient, INAD. Awake and alert. Pleasantly confused. SKIN: Warm and dry. HEENT: Atraumatic. Normocephalic. Pupils equal and round. No scleral icterus. No injection or drainage. No nasal bleeding or discharge. Mucous membranes pink and moist. NECK: Trachea midline. CARDIOVASCULAR: Bradycardic. No murmur auscultated. RESPIRATORY: No accessory muscle use. Clear to auscultation. Breath sounds equal bilaterally. GASTROINTESTINAL: Abdomen soft, non-tender, nondistended. +BS. GENITOURINARY: Charlton catheter in place with clear yellow urine in bag. MUSCULOSKELETAL: Extremities without clubbing or cyanosis. +Bilateral lower extremity edema. NEUROLOGICAL: Awake and alert. No obvious cranial nerve deficits. Able to move all extremities spontaneously. Normal speech. PSYCHIATRIC: Calm and cooperative. - Urinary Catheter Management Indwelling Urethral Catheter Cath placed during this visit: yes Reason for continuing: Hourly intake/output Insertion date: 06/17/18 Insertion time: 16:45 Results - Labs CBC & Chem 7: 06/18/18 01:05 06/19/18 09:08 Laboratory Results - last 24 hr 06/18/18 06/18/18 06/18/18 15:19 17:02 21:39 PT INR APTT 133.3 H* D 93.7 H* D 25.0 D 06/19/18 06/19/18 06:17 06:17 PT 11.4 INR 1.1 APTT 35.9 H D Microbiology 06/17/18 16:44 Catheterized Urine Urine Culture - Preliminary No growth in 24 hours Assessment and Plan - Assessment (1) UTI (urinary tract infection) Code(s): N39.0 - Urinary tract infection, site not specified Status: Acute (2) DVT (deep venous thrombosis) Code(s): I82.409 - Acute embolism and thrombosis of unspecified deep veins of unspecified lower extremity Status: Acute (3) ABIOLA (acute kidney injury) Code(s): N17.9 - Acute kidney failure, unspecified Status: Acute - Plan 82-year-old female with a PMH of HTN, h/o GI Bleed and CHF (Unknown EF) who was brought to the ER by EMS for c/o abdominal pain and bilateral foot pain found to have bilateral DVTs and UTI. UTI: U/a w/ UTI, +WBC 11.4, s/p Rocephin in ER UCX with no growth CT abd/pelvis shows bilateral hydronephrosis, unchanged recent Ecoli UTI treated 12/2017 D/c IV Ceftriaxone charlton catheter in place - placed in the ED Bilateral LE DVT: +bilateral lower extremity edema, limited mobility in the last 1-2wks per pt and daughter, likely etiology of DVT. Currently on Heparin gtt, will continue H/o GI Bleed on last admit 12/2017, monitor closely, consider IVC Filter for recurrent GI Bleed. Hematology following, appreciate assistance. Xarelto recommended as anticoagulation. Will d/c Heparin gtt and start on Xarelto. ABIOLA on CKD: Creatinine 2.26, previously 1.81 on 01/12/18 repeat creatinine much improved to 1.88 - likely near baseline Nephrology following, very much appreciate assistance continue to hold Lasix monitor I/O avoid nephrotoxic agents continue to monitor kidney function closely CHF, does not appear decompensated BNP 632 hold Lasix secondary to ABIOLA as above continue on BB monitor fluid status monitor respiratory function Hypertension BP acceptable but bradycardia with HR 51 Continue on Clonidine Continue on Coreg but decrease dose to 6.25mg BID Continue to monitor BP and adjust treatment accordingly monitor HR and BP Constipation large amount of stool noted in rectal vault on CT, suspect contributing to element of urinary retention and secondary UTI bowel regimen monitor for BM Hx of GIB December 2017 with hgb of 6.8 requiring transfusion of 4 units of blood s/p EGD and colonoscopy that admission revealing gastritis, polyps and diverticuli No e/o active bleeding Continue on Protonix Monitor closely while on Heparin gtt Hypokalemia K 3.3 po repletion ordered repeat BMP in am to monitor response 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 Dorado Discharge Planning: Not ready for discharge
[2018-06-19 09:47] LABS: Carbon Dioxide 28.5 meq/L (21.0-32.0); Potassium 3.3 meq/L (3.5-5.1)
--- NOTE | 2018-06-19 10:18 | MB ---
cc: Marleen Mccloud MD DATE: 06/19/2018 CHIEF COMPLAINT: Bilateral lower extremity DVT. HISTORY OF PRESENT ILLNESS: Ms. Giraldo is an 82-year-old lady with a history of hypertension, congestive heart failure, GI bleed in 12/2017, who was admitted to the hospital on 06/17/2018 with abdominal pain and bilateral lower extremity pain. Per review of the patient's chart, the patient has had prolonged bed rest and she also has chronic lower extremity edema. Doppler ultrasound performed in the emergency room showed bilateral lower extremity DVT. CT scan of the abdomen and pelvis showed large cystic mass lesion in the head of the pancreas, which is unchanged over multiple studies and has been worked up in the past and is stable. She has unchanged bilateral hydronephrosis. She is currently being treated with Rocephin for a urinary tract infection and was placed on a heparin drip. She also has an acute kidney injury and is on IV fluids. She has been seen by the nephrology team for her acute kidney injury. She was previously hospitalized in 12/2017 for a GI bleed. At that time, she underwent colonoscopy which revealed diverticulosis, sessile polyp in the sigmoid colon, small internal hemorrhoids. She was noted prior to that admission to have decreased appetite, nausea, no vomiting, diarrhea and black stools. Hemoglobin on admission was low. She was also treated for a urinary tract infection. EGD with gastritis. She was on Protonix and she was treated for an acute kidney injury. The patient is a poor historian, but it seems that this is her only episode of GI bleeding. Hemoglobin eliana at that time was 6.8 and she responded well to blood transfusion. REVIEW OF SYSTEMS: As above in the HPI. All others negative. PAST MEDICAL HISTORY: Diabetes, hypertension, peripheral vascular disease, coronary artery disease, pancreatic tumor extensive workup in the past. PAST SURGICAL HISTORY: 1. History of pancreatic biopsies. 2. EGD. ALLERGIES: NO KNOWN DRUG ALLERGIES. FAMILY HISTORY: Diabetes and hypertension. SOCIAL HISTORY: No tobacco, alcohol or illegal drug use. She lives with her family. PHYSICAL EXAMINATION: VITAL SIGNS: Temperature 97.6, pulse 52, respiratory rate 16, blood pressure 120/60. GENERAL: Elderly lady, in no distress. HEENT: Head is normocephalic, atraumatic. Eyes: PERRLA. EOMI. NECK: Supple. No palpable lymphadenopathy. CARDIOVASCULAR: Regular rate and rhythm. No murmurs. RESPIRATORY: Clear to auscultation bilaterally. ABDOMEN: Soft, nontender, nondistended. Bowel sounds present. EXTREMITIES: Bilateral lower extremity edema. Skin thickening and indicating chronic lower extremity edema. NEUROLOGIC: Grossly nonfocal. PSYCHIATRIC: Poor recent and remote memory. ASSESSMENT AND PLAN: Bilateral lower extremity deep venous thrombosis, provoked due to minor nontransient risk factor of reduced mobility. Ideally, the patient would be on an indefinite anticoagulation. She does have a history of a GI bleed; however, hemoglobin at this time is currently within normal limits at 11.8. She has normal platelet counts. We will plan to move forward with anticoagulation. Options for outpatient anticoagulation include Xarelto, Eliquis, and warfarin. Discussed risks and benefits of each outpatient anticoagulant with patient. Between the two would prefer Eliquis. There is no dosage adjustment recommended by the corporate compliance director for any degree of renal impairment. The Eliquis would be taken twice a day. Would have to watch very closely for bleeding as the patient has a history of GI bleed in the past, and the risks of all blood thinners is that she would be at higher risk to have another GI bleed. In studies comparing the 2 drugs, there is a higher risk of bleed in patients on warfarin therapy as opposed to apixaban therapy. Inpatient hematology service will continue to follow. MD Zachery Metz , 09:07 AM , 09:17 AM ALEE
[2018-06-19] MEDS: Lactic Acid (Ammonium Lactate) 12% Lotion 225 GM Bottle TOPICAL SCH ×2 (16:57→20:53)
[2018-06-19] MEDS ORDERED: Rivaroxaban 15 MG Tablet PO SCH (18:00)
--- NOTE | 2018-06-19 19:37 | P.PNONC ---
Subjective Interval history: Resting comfortably in bed. Objective Vital Signs/Intake & Output: Vital Signs 06/18/18 20:00 06/18/18 23:59 06/19/18 04:00 Temperature 98.1 F 97.6 F 97.7 F Pulse Rate 61 52 L 51 L Respiratory Rate 16 16 16 Blood Pressure 143/63 H 128/60 162/55 H Pulse Oximetry 98 97 97 06/19/18 08:21 06/19/18 11:46 06/19/18 16:28 Temperature 97.5 F L 98.3 F 98.3 F Pulse Rate 69 65 62 Respiratory Rate 18 18 20 Blood Pressure 148/54 H 130/56 L 129/58 L Pulse Oximetry 98 97 99 Intake & Output 06/19/18 06/19/18 06/20/18 06:59 18:59 06:59 Intake Total 820 / 820 200 / 200 Balance 820 / 820 200 / 200 Intake: IV 100 / 100 200 / 200 Heparin/D5W 25,000 U/250 mL 25, 200 / 200 000 unit In 250 ml @ Per Protocol IV.CONT TITRATE PRN Rx #:[id number] Rocephin Inj 1,000 MG In NS Inj 100 / 100 100 ML @ 200 mls/hr IV.SIG Q24H ADDISON Rx#:[id number] Oral 720 / 720 Result Diagrams: 06/18/18 01:05 06/20/18 04:24 Laboratory Results: Laboratory Results - last 24 hr 06/18/18 06/19/18 06/19/18 21:39 06:17 06:17 PT 11.4 INR 1.1 APTT 25.0 D 35.9 H D Sodium Potassium Chloride Carbon Dioxide Anion Gap BUN Creatinine Estimated GFR Random Glucose Calcium 06/19/18 06/19/18 09:08 12:00 PT INR APTT 42.4 H Sodium 146 H Potassium 3.3 L Chloride 110 H Carbon Dioxide 28.5 Anion Gap 8 BUN 37 H Creatinine 1.88 H Estimated GFR 31 L Random Glucose 98 Calcium 8.0 L Culture Results: Microbiology 06/17/18 16:44 Urine Culture - Final Catheterized Urine No growth in 48 hours Medications: Active Medications Generic Name Dose Route Start Last Admin Trade Name Freq PRN Reason Stop Dose Admin Amlodipine Besylate 10 mg 06/19/18 09:00 06/19/18 09:19 Norvasc PO 10 mg DAILY ADDISON Administration Carvedilol 6.25 mg 06/19/18 09:00 06/19/18 09:20 Coreg PO 6.25 mg BID ADDISON Administration Clonidine HCl 0.1 mg 06/18/18 09:00 06/19/18 18:02 Catapres PO 0.1 mg TID ADDISON Administration Furosemide 40 mg 06/18/18 09:00 06/18/18 10:20 Lasix PO 40 mg DAILY ADDISON Administration Lactic Acid 1 applicatio 06/19/18 10:00 06/19/18 16:57 Lac-Hydrin 12% Lotion TOPICAL Not Given BID ADDISON Pantoprazole Sodium 40 mg 06/18/18 09:00 06/19/18 09:20 Protonix PO 40 mg DAILY ADDISON Administration Polyethylene Glycol 17 gm 06/18/18 13:15 06/19/18 09:20 Miralax PO 17 gm DAILY DADISON Administration Pravastatin Sodium 20 mg 06/18/18 09:00 06/19/18 09:19 Pravachol PO 20 mg DAILY ADDISON Administration Senna/Docusate Sodium 1 tab 06/17/18 21:00 06/19/18 09:20 Marisa-Colace PO 1 tab BID ADDISON Administration Sodium Chloride 2 ml 06/17/18 21:00 06/19/18 09:20 Ns Flush IV.FLUSH 2 ml BID ADDISON Administration Objective Remarks: GENERAL: Well-nourished, well-developed patient. SKIN: Warm and dry. HEAD: Normocephalic. EYES: No scleral icterus. No injection or drainage. NECK: Supple, trachea midline. No JVD or lymphadenopathy. LYMPHATIC: No adenopathy. CARDIOVASCULAR: Regular rate and rhythm without murmurs. RESPIRATORY: Breath sounds equal bilaterally. No accessory muscle use. GASTROINTESTINAL: Abdomen soft, non-tender, nondistended. EXTREMITIES: No cyanosis, or edema. MUSCULOSKELETAL: Adequate muscle tone. NEUROLOGICAL: No obvious focal deficit. Awake, alert, and oriented x3. PSYCHIATRIC: Appropriate mood and affect; insight and judgment normal. Assessment/Plan - Plan 1. Bilateral lower extremity VTE: Will use atrial fibrillation dosing for this elderly patient with a history of GIB and poor renal function. She is greater than 80 years of age with a serum creatinine of greater than 1.[address]. [address] her on apixban 2.5 mg PO BID. Xarelto is contraindicated in patients with a creatinine clearance of less than 30. Studies have shown that the risk of major bleeding is higher in patients on warfarin therapy compared to apixaban. Discussed risks benefits of anticoagulation with patient to include major bleed. She was given a dose of Xarelto at 4 pm today. Will initiate apixaban tomorrow at 5 mdg PO BID for one week followed by 2.5 mg PO BID. She will need to be on indefinite anticoagulation. Discussed risks vs benefits with patient. No evidence of malignancy on imaging. Pancreatic lesion that has been worked up in the past.
[2018-06-20 05:19] LABS: INR 1.2 Ratio
[2018-06-20 05:34] LABS: Calcium 7.8 mg/dL (8.5-10.1); Carbon Dioxide 28.7 meq/L (21.0-32.0); Potassium 3.7 meq/L (3.5-5.1)
[2018-06-20] MEDS: Senna/Docusate Sodium 8.6/50 MG Tablet PO SCH ×2 (08:00→20:11)
[2018-06-20] MEDS: Carvedilol 6.25 MG Tablet PO SCH ×2 (08:01→20:11)
[2018-06-20] MEDS: Lactic Acid (Ammonium Lactate) 12% Lotion 225 GM Bottle TOPICAL SCH ×2 (08:01→20:14)
[2018-06-20] MEDS: Sodium Chloride 0.9% 2 ML Flush BID IV.FLUSH SCH ×2 (08:01→20:12)
[2018-06-20] MEDS: Polyethylene Glycol 3350 17 GM Packet PO SCH (08:01)
[2018-06-20] MEDS: amLODIPine 10 MG Tablet PO SCH (08:01)
--- NOTE | 2018-06-20 11:19 | P.PNONC ---
Subjective Interval history: Afebrile Patient reports pain in her lower extremities however this is improved Denies any bleeding Objective Vital Signs/Intake & Output: Vital Signs 06/19/18 11:46 06/19/18 16:28 06/19/18 19:48 Temperature 98.3 F 98.3 F 98.1 F Pulse Rate 65 62 66 Respiratory Rate 18 20 17 Blood Pressure 130/56 L 129/58 L 152/61 H Pulse Oximetry 97 99 95 06/20/18 01:24 06/20/18 04:00 06/20/18 07:53 Temperature 97.9 F 98.2 F 97.6 F Pulse Rate 62 59 L 68 Respiratory Rate 17 16 16 Blood Pressure 135/58 L 148/67 H 189/59 H Pulse Oximetry 96 96 100 06/20/18 10:17 Temperature Pulse Rate 52 L Respiratory Rate Blood Pressure 204/79 H Pulse Oximetry Intake & Output 06/19/18 06/20/18 06/20/18 18:59 06:59 18:59 Intake Total 200 / 200 Output Total 600 / 600 Balance 200 / 200 -600 / -600 Intake: IV 200 / 200 Heparin/D5W 25,000 U/250 mL 25, 200 / 200 000 unit In 250 ml @ Per Protocol IV.CONT TITRATE PRN Rx #:[id number] Output: Urine Amount (Catheter) 600 / 600 Indwelling Urethral Catheter 600 / 600 Result Diagrams: 06/18/18 01:05 06/20/18 04:24 Laboratory Results: Laboratory Results - last 24 hr 06/19/18 06/19/18 06/20/18 12:00 19:38 04:24 PT 12.0 H INR 1.2 APTT 42.4 H 35.9 H Sodium Potassium Chloride Carbon Dioxide Anion Gap BUN Creatinine Estimated GFR Random Glucose Calcium 06/20/18 04:24 PT INR APTT Sodium 147 H Potassium 3.7 Chloride 111 H Carbon Dioxide 28.7 Anion Gap 7 BUN 34 H Creatinine 1.81 H Estimated GFR 32 L Random Glucose 95 Calcium 7.8 L Culture Results: Microbiology 06/17/18 16:44 Urine Culture - Final Catheterized Urine No growth in 48 hours Medications: Active Medications Generic Name Dose Route Start Last Admin Trade Name Freq PRN Reason Stop Dose Admin Amlodipine Besylate 10 mg 06/19/18 09:00 06/20/18 08:01 Norvasc PO 10 mg DAILY ADDISON Administration Carvedilol 6.25 mg 06/19/18 09:00 06/20/18 08:01 Coreg PO 6.25 mg BID ADDISON Administration Clonidine HCl 0.1 mg 06/18/18 09:00 06/20/18 08:01 Catapres PO 0.1 mg TID ADDISON Administration Furosemide 40 mg 06/18/18 09:00 06/18/18 10:20 Lasix PO 40 mg DAILY ADDISON Administration Lactic Acid 1 applicatio 06/19/18 10:00 06/20/18 08:01 Lac-Hydrin 12% Lotion TOPICAL 1 applicatio BID ADDISON Administration Pantoprazole Sodium 40 mg 06/18/18 09:00 06/20/18 08:01 Protonix PO 40 mg DAILY ADDISON Administration Polyethylene Glycol 17 gm 06/18/18 13:15 06/20/18 08:01 Miralax PO 17 gm DAILY ADDISON Administration Pravastatin Sodium 20 mg 06/18/18 09:00 06/20/18 08:01 Pravachol PO 20 mg DAILY ADDISON Administration Senna/Docusate Sodium 1 tab 06/17/18 21:00 06/20/18 08:00 Marisa-Colace PO 1 tab BID ADDISON Administration Sodium Chloride 2 ml 06/17/18 21:00 06/20/18 08:01 Ns Flush IV.FLUSH 2 ml BID ADDISON Administration Objective Remarks: GENERAL: Elderly female sitting up in bed in no acute distress SKIN: Warm and dry. HEAD: Normocephalic. EYES: No scleral icterus. No injection or drainage. NECK: Supple, trachea midline. No JVD or lymphadenopathy. CARDIOVASCULAR: Regular rate and rhythm without murmurs. RESPIRATORY: Clear posteriorly. Breathing unlabored at rest. GASTROINTESTINAL: Abdomen soft, non-tender, nondistended. EXTREMITIES: 4+ edema to bilateral lower extremities MUSCULOSKELETAL: Generalized weakness NEUROLOGICAL: Awake and alert. Follows commands. Assessment/Plan - Plan 82-year-old female with bilateral lower extremity venous thromboembolism; hematology consulted for anticoagulation recommendations 1. Initiate apixaban today at 5 mg p.o. twice daily. This will be continued for 7 days at which time the patient will be decreased to 2.5 mg twice daily. 2. Monitor for bleeding 3. Continue supportive care - Attending Statement Pt examined. Appears pleasantly confused. Bilateral LE DVTs with renal insufficiency. Epixaban ideal for pt. F/u with PMD.
--- NOTE | 2018-06-20 11:20 | P.PN ---
Subjective Interval history: Follow-up on patient with history of GI bleed, bilateral DVTs. Patient seen and examined. Patient denies any complaints. She denies any complaints of pain. She denies any fever or chills. She denies any chest pain or dyspnea. She denies any N/V or abdominal pain. She is adamantly refusing rehab at discharge. Physical Exam Vital signs: Vital Signs 06/19/18 11:46 06/19/18 16:28 06/19/18 19:48 Temperature 98.3 F 98.3 F 98.1 F Pulse Rate 65 62 66 Respiratory Rate 18 20 17 Blood Pressure 130/56 L 129/58 L 152/61 H Pulse Oximetry 97 99 95 06/20/18 01:24 06/20/18 04:00 06/20/18 07:53 Temperature 97.9 F 98.2 F 97.6 F Pulse Rate 62 59 L 68 Respiratory Rate 17 16 16 Blood Pressure 135/58 L 148/67 H 189/59 H Pulse Oximetry 96 96 100 06/20/18 10:17 Temperature Pulse Rate 52 L Respiratory Rate Blood Pressure 204/79 H Pulse Oximetry Intake & Output 06/19/18 06/20/18 06/20/18 18:59 06:59 18:59 Intake Total 200 / 200 Output Total 600 / 600 Balance 200 / 200 -600 / -600 Intake: IV 200 / 200 Heparin/D5W 25,000 U/250 mL 25, 200 / 200 000 unit In 250 ml @ Per Protocol IV.CONT TITRATE PRN Rx #:[id number] Output: Urine Amount (Catheter) 600 / 600 Indwelling Urethral Catheter 600 / 600 Narrative: GENERAL: WDWN elderly female patient. Awake and alert. Pleasantly confused. In no acute distress. SKIN: Warm and dry. HEENT: Atraumatic. Normocephalic. Pupils equal and round. No scleral icterus. No injection or drainage. No nasal bleeding or discharge. Mucous membranes pink and moist. NECK: Trachea midline. CARDIOVASCULAR: Bradycardic. No murmur auscultated. RESPIRATORY: No accessory muscle use. Clear to auscultation. Breath sounds equal bilaterally. GASTROINTESTINAL: Abdomen soft, non-tender, nondistended. +BS. GENITOURINARY: Charlton catheter in place with clear yellow urine in bag. MUSCULOSKELETAL: Extremities without clubbing or cyanosis. +Bilateral lower extremity edema. NEUROLOGICAL: Awake and alert. No obvious cranial nerve deficits. Able to move all extremities spontaneously. Normal speech. PSYCHIATRIC: Calm and cooperative. - Urinary Catheter Management Indwelling Urethral Catheter Cath placed during this visit: yes Reason for continuing: Hourly intake/output Insertion date: 06/17/18 Insertion time: 16:45 Results - Labs CBC & Chem 7: 06/18/18 01:05 06/20/18 04:24 Laboratory Results - last 24 hr 06/19/18 06/19/18 06/20/18 12:00 19:38 04:24 PT 12.0 H INR 1.2 APTT 42.4 H 35.9 H Sodium Potassium Chloride Carbon Dioxide Anion Gap BUN Creatinine Estimated GFR Random Glucose Calcium 06/20/18 04:24 PT INR APTT Sodium 147 H Potassium 3.7 Chloride 111 H Carbon Dioxide 28.7 Anion Gap 7 BUN 34 H Creatinine 1.81 H Estimated GFR 32 L Random Glucose 95 Calcium 7.8 L Microbiology 06/17/18 16:44 Catheterized Urine Urine Culture - Final No growth in 48 hours Assessment and Plan - Assessment (1) UTI (urinary tract infection) Code(s): N39.0 - Urinary tract infection, site not specified Status: Acute (2) DVT (deep venous thrombosis) Code(s): I82.409 - Acute embolism and thrombosis of unspecified deep veins of unspecified lower extremity Status: Acute (3) ABIOLA (acute kidney injury) Code(s): N17.9 - Acute kidney failure, unspecified Status: Acute - Plan 82-year-old female with a PMH of HTN, h/o GI Bleed and CHF (Unknown EF) who was brought to the ER by EMS for c/o abdominal pain and bilateral foot pain found to have bilateral DVTs and UTI. UTI: U/a w/ UTI, +WBC 11.4, s/p Rocephin in ER UCX with no growth CT abd/pelvis shows bilateral hydronephrosis, unchanged recent Ecoli UTI treated 12/2017 D/c IV Ceftriaxone charlton catheter in place - placed in the ED. Will consult Urology regarding bilateral hydronephrosis and management of charlton, appreciate assistance. Bilateral LE DVT: +bilateral lower extremity edema, limited mobility in the last 1-2wks per pt and daughter, likely etiology of DVT. Currently on Heparin gtt, will continue H/o GI Bleed on last admit 12/2017, monitor closely, consider IVC Filter for recurrent GI Bleed. Hematology following, appreciate assistance. Eliquis recommended as anticoagulation. Heparin discontinued. To start on Eliquis later today. Eliquis 5mg BID x 7 days then 2.5mg BID, patient will need indefinite anticoagulation. ABIOLA on CKD: Creatinine 2.26, previously 1.81 on 01/12/18 repeat creatinine much improved to 1.81 - at baseline Nephrology following, very much appreciate assistance continue to hold Lasix - per Nephrology do not resume at this time monitor I/O avoid nephrotoxic agents continue to monitor kidney function closely CHF, does not appear decompensated BNP 632 hold Lasix secondary to ABIOLA as above continue on BB monitor fluid status monitor respiratory function. Patient satting 100% on RA. Hypertension, not well controlled, BP 204/79 bradycardia with HR 51 Begin on Hydralazine 25mg po TID Continue on Clonidine. May need to increase dose of Clonidine if BP remains elevated. Continue on Coreg but at decreased dose 6.25mg BID Continue on Norvasc 10mg daily Continue to monitor BP and adjust treatment accordingly monitor HR and BP Weakness Generalized deconditioning Continue with PT/OT Patient adamantly refusing SNF/rehab. Family is aware. Discussed with daughter at length yesterday. Patient lives with son and girlfriend who cares for her. Plan for d/c home with [facility]. 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 Dorado Discharge Planning: Not ready for discharge. Likely discharge in next 24 - 48hours. Monitor for GIB once Eliquis started. May discharge following Urology eval/recs.
[2018-06-20] MEDS: hydrALAZINE 25 MG Tablet PO SCH ×3 (11:44→18:22)
--- NOTE | 2018-06-20 13:32 | P.PNNP ---
Subjective Interval history: Patient is in good spirits with no complaints. Denies any shortness of breath, chest pain, nausea, or vomiting. <Valeria Rivero - Last Filed: 06/20/18 13:24> Physical Exam Vital signs: Vital Signs 06/19/18 16:28 06/19/18 19:48 06/20/18 01:24 Temperature 98.3 F 98.1 F 97.9 F Pulse Rate 62 66 62 Respiratory Rate 20 17 17 Blood Pressure 129/58 L 152/61 H 135/58 L Pulse Oximetry 99 95 96 06/20/18 04:00 06/20/18 07:53 06/20/18 10:17 Temperature 98.2 F 97.6 F Pulse Rate 59 L 68 52 L Respiratory Rate 16 16 Blood Pressure 148/67 H 189/59 H 204/79 H Pulse Oximetry 96 100 06/20/18 12:00 Temperature 97.7 F Pulse Rate 56 L Respiratory Rate 18 Blood Pressure 185/71 H Pulse Oximetry Intake & Output 06/19/18 06/20/18 06/20/18 18:59 06:59 18:59 Intake Total 200 / 200 Output Total 600 / 600 Balance 200 / 200 -600 / -600 Intake: IV 200 / 200 Heparin/D5W 25,000 U/250 mL 25, 200 / 200 000 unit In 250 ml @ Per Protocol IV.CONT TITRATE PRN Rx #:[id number] Output: Urine Amount (Catheter) 600 / 600 Indwelling Urethral Catheter 600 / 600 Narrative: GENERAL:Awake and alert. Pleasantly confused. SKIN: Warm and dry. CARDIOVASCULAR: Bradycardic. No murmur auscultated. RESPIRATORY: No accessory muscle use. Clear to auscultation. Breath sounds equal bilaterally. GASTROINTESTINAL: Abdomen soft, non-tender, nondistended. +BS. GENITOURINARY: Crowe catheter in place with clear yellow urine in bag. MUSCULOSKELETAL: Extremities without clubbing or cyanosis. +Bilateral lower extremity edema. NEUROLOGICAL: Able to move all extremities spontaneously. Normal speech. - Urinary Catheter Management Indwelling Urethral Catheter Cath placed during this visit: yes Reason for continuing: Hourly intake/output Insertion date: 06/17/18 Insertion time: 16:45 <Valeria Rivero - Last Filed: 06/20/18 13:24> Vital signs: Vital Signs 06/19/18 19:48 06/20/18 01:24 06/20/18 04:00 Temperature 98.1 F 97.9 F 98.2 F Pulse Rate 66 62 59 L Respiratory Rate 17 17 16 Blood Pressure 152/61 H 135/58 L 148/67 H Pulse Oximetry 95 96 96 06/20/18 07:53 06/20/18 10:17 06/20/18 12:00 Temperature 97.6 F 97.7 F Pulse Rate 68 52 L 56 L Respiratory Rate 16 18 Blood Pressure 189/59 H 204/79 H 185/71 H Pulse Oximetry 100 06/20/18 16:00 Temperature 98.2 F Pulse Rate 77 Respiratory Rate 18 Blood Pressure 168/78 H Pulse Oximetry 95 Intake & Output 06/20/18 06/20/18 06/21/18 06:59 18:59 06:59 Intake Total 500 / 500 Output Total 600 / 600 550 / 550 Balance -600 / -600 -50 / -50 Intake: Oral 500 / 500 Output: Urine Amount (Catheter) 600 / 600 550 / 550 Indwelling Urethral Catheter 600 / 600 550 / 550 - Urinary Catheter Management Indwelling Urethral Catheter Cath placed during this visit: no <Nirmala Ramey - Last Filed: 06/20/18 19:19> Assessment and Plan - Assessment (1) ABIOLA (acute kidney injury) Code(s): N17.9 - Acute kidney failure, unspecified Status: Acute (2) UTI (urinary tract infection) Code(s): N39.0 - Urinary tract infection, site not specified Status: Acute (3) DVT (deep venous thrombosis) Code(s): I82.409 - Acute embolism and thrombosis of unspecified deep veins of unspecified lower extremity Status: Acute - Plan Creatinine has improved and now at baseline Has indwelling Crowe catheter, with good urinary output. Ct of abdomen with bilateral hydronephrosis which is unchanged. Urology has been consulted for recommendations about removing indwelling Crowe catheter. From a nephrology stand point patient is cleared for discharge. Recommend for patient with follow up with nephrology outpatient as she has advanced chronic kidney and approaching stage 4. Recommend to continue to hold lasix can be restarted at later date if needed. <Valeria Rivero - Last Filed: 06/20/18 13:24> - Assessment (1) ABIOLA (acute kidney injury) Code(s): N17.9 - Acute kidney failure, unspecified Status: Acute (2) UTI (urinary tract infection) Code(s): N39.0 - Urinary tract infection, site not specified Status: Acute (3) DVT (deep venous thrombosis) Code(s): I82.409 - Acute embolism and thrombosis of unspecified deep veins of unspecified lower extremity Status: Acute - Plan Patient seen and examine, agree with above. Creatinine is improving. Urology is consulted. Follow the urine out put and BMP. <Nirmala Ramey - Last Filed: 06/20/18 19:19>
--- NOTE | 2018-06-20 14:00 | P.DCO ---
- Diagnosis (1) UTI (urinary tract infection) Status: Acute (2) DVT (deep venous thrombosis) Status: Acute (3) ABIOLA (acute kidney injury) Status: Acute (4) Weakness Status: Acute (5) Risk for falls Status: Acute (6) Gait instability Status: Acute (7) Impaired activities of daily living Status: Acute - Physical Therapy Order: Evaluate and treat, Improve ambulation, Strength and gait training - Occupational Therapy Order: Evaluate and treat, Improve ADL, Gross motor coordination, Fine motor coordination - Home Health Nursing Order: Medical education, Signs/symptoms of disease process, Medication education-adverse effect, Nursing assessment with vital signs - Case Management Consult Yes - Certification I have seen patient Tiana Giraldo on 06/20/18. My clinical findings support the need for the requested home health care services because: Limited mobility due to disease progression, Deconditioned with increased weakness, Medication compliance is questionable, Limited ability to care for self, Impaired cognition/judgement, High risk of falls I certify that my clinical findings support that this patient is homebound because: Post-op weakness, Impaired cognitive ability/safety, Unsteady gait/balance, Unsafe to leave home unassisted, Unable to use public transportation
--- NOTE | 2018-06-20 16:29 | P.CONURO ---
History of Present Illness Service: Consult date: 06/20/18 Requesting Physician: Rocío Meléndez Reason for Consult: Bilateral hydronephrosis Primary Care Provider: Annalise Slaughter MD History of Present Illness: 82-year-old female with history bilateral hydronephrosis who was admitted for further workup and management of right flank pain and bilateral lower extremity edema. A CT scan of the abdomen was performed that once again demonstrated bilateral hydroureteronephrosis along with a 4.8 cm right renal cyst and bladder wall thickening. These findings were essentially unchanged from a prior CT scan dated back in December of this year. Patient also had a renal scan with Lasix washout in the spring of this year that demonstrated sluggish drainage of the bilateral collecting systems after administration of Lasix. At the time of consultation the patient was resting comfortably in bed and not in any acute distress. She denied any flank pain or hematuria. She did have an indwelling Crowe catheter in place draining clear yellow urine. The serum creatinine levels have been trending downward since the Crowe catheter was placed. Patient also has been under the care of nephrology. Patient was a somewhat limited historian and unable to provide any additional history. Review of Systems All other systems reviewed negative except as stated in HPI PMFSH - History History Provided By: Patient, Stick Roller / EMT - Medical History Medical History: Medical History (Last Reviewed 06/20/18 @ 11:41 by Tammy Baca) CHF (congestive heart failure) Diabetes HTN (hypertension) - Tobacco History Second Hand Smoke Exposure: No Smoking Status: Never smoker - Alcohol History How Often Do You Have a Drink Containing Alcohol: Never - Substance Use History Substance History: No History of Abuse - Travel History Recent Travel in the [place] Within the Last 8 Weeks: No Recent Travel Out of the Country Within the Last 8 Weeks: No - Immunization History Tetanus Immunization: Unsure Medications and Allergies Active Medications: Active Medications Acetaminophen (Tylenol) 650 mg PO Q4H PRN PRN Reason: Temp > 100.4 Al Hydroxide/Mg Hydroxide (Milk Of Magnesia Liq) 30 ml PO Q12H PRN PRN Reason: Mild Constipation Amlodipine Besylate (Norvasc) 10 mg PO DAILY [facility] Last Admin: 06/20/18 08:01 Dose: 10 mg Apixaban (Eliquis) 5 mg PO BID [facility] Stop: 06/27/18 10:59 Last Admin: 06/20/18 11:43 Dose: 5 mg Bisacodyl (Dulcolax Supp) 10 mg RECTAL DAILY PRN PRN Reason: SEVERE CONSITIPATION Carvedilol (Coreg) 6.25 mg PO BID [facility] Last Admin: 06/20/18 08:01 Dose: 6.25 mg Clonidine HCl (Catapres) 0.1 mg PO TID [facility] Last Admin: 06/20/18 14:48 Dose: 0.1 mg Furosemide (Lasix) 40 mg PO DAILY [facility] Last Admin: 06/18/18 10:20 Dose: 40 mg Hydralazine HCl (Apresoline) 25 mg PO TID [facility] Last Admin: 06/20/18 13:00 Dose: Not Given Lactic Acid (Lac-Hydrin 12% Lotion) 1 applicatio TOPICAL BID [facility] Last Admin: 06/20/18 08:01 Dose: 1 applicatio Lactulose (Lactulose Liq) 30 ml PO DAILY PRN PRN Reason: SEVERE CONSITIPATION Ondansetron HCl (Zofran Inj) 4 mg IV.PUSH Q6H PRN PRN Reason: NAUSEA OR VOMITING Pantoprazole Sodium (Protonix) 40 mg PO DAILY [facility] Last Admin: 06/20/18 08:01 Dose: 40 mg Polyethylene Glycol (Miralax) 17 gm PO DAILY [facility] Last Admin: 06/20/18 08:01 Dose: 17 gm Pravastatin Sodium (Pravachol) 20 mg PO DAILY [facility] Last Admin: 06/20/18 08:01 Dose: 20 mg Senna/Docusate Sodium (Marisa-Colace) 1 tab PO BID [facility] Last Admin: 06/20/18 08:00 Dose: 1 tab Sennosides (Senokot) 17.2 mg PO Q12H PRN PRN Reason: Moderate Constipation Sodium Chloride (Ns Flush) 2 ml IV.FLUSH BID [facility] Last Admin: 06/20/18 08:01 Dose: 2 ml Sodium Chloride (Ns Flush) 2 ml IV.FLUSH PRN PRN PRN Reason: FLUSH AFTER USING IV ACCESS Allergies Allergy/AdvReac Type Severity Reaction Status Date / Time No Known Allergies Allergy Verified 06/17/18 17:07 Home Medications Medication Instructions Recorded Confirmed Type amlodipine 10 mg PO DAILY 06/17/18 06/17/18 History carvedilol 12.5 mg PO BID 06/17/18 06/17/18 History clonidine HCl 0.1 mg PO TID 06/17/18 06/17/18 History furosemide 40 mg PO DAILY 06/17/18 06/17/18 History lisinopril 40 mg PO DAILY 06/17/18 06/17/18 History pantoprazole 40 mg PO DAILY 06/17/18 06/17/18 History potassium chloride 10 meq PO DAILY 06/17/18 06/17/18 History pravastatin 20 mg PO DAILY 06/17/18 06/17/18 History Physical Exam Vital Signs - 24 hr 06/19/18 16:28 06/19/18 19:48 06/20/18 01:24 Temperature 98.3 F 98.1 F 97.9 F Pulse Rate 62 66 62 Respiratory Rate 20 17 17 Blood Pressure 129/58 L 152/61 H 135/58 L Pulse Oximetry 99 95 96 06/20/18 04:00 06/20/18 07:53 06/20/18 10:17 Temperature 98.2 F 97.6 F Pulse Rate 59 L 68 52 L Respiratory Rate 16 16 Blood Pressure 148/67 H 189/59 H 204/79 H Pulse Oximetry 96 100 06/20/18 12:00 06/20/18 16:00 Temperature 97.7 F 98.2 F Pulse Rate 56 L 77 Respiratory Rate 18 18 Blood Pressure 185/71 H 168/78 H Pulse Oximetry 95 Physical Exam: GENERAL: This is a well-nourished, well-developed patient, in no apparent distress. SKIN: No rashes, ecchymoses or lesions. Cool and dry. HEAD: Atraumatic. Normocephalic. No temporal or scalp tenderness. EYES: Pupils equal round and reactive. Extraocular motions intact. No scleral icterus. No injection or drainage. ENT: Nose without bleeding, purulent drainage or septal hematoma. Throat without erythema, tonsillar hypertrophy or exudate. Uvula midline. Airway patent. NECK: Trachea midline. No JVD or lymphadenopathy. Supple, nontender, no meningeal signs. GASTROINTESTINAL: Abdomen soft, non-tender, nondistended. No hepato-splenomegaly , or palpable masses. No guarding. GENITOURINARY: No CVA tenderness, bladder not distended, Crowe catheter in place draining clear yellow urine. MUSCULOSKELETAL: Extremities without clubbing, cyanosis, or edema. No joint tenderness, effusion, or edema noted. No calf tenderness. Negative Homans sign bilaterally. NEUROLOGICAL: Awake and alert. Cranial nerves II through XII intact. Motor and sensory grossly within normal limits. Five out of 5 muscle strength in all muscle groups. Normal speech. Laboratory Results - last 24 hr 06/19/18 06/20/18 06/20/18 19:38 04:24 04:24 PT 12.0 H INR 1.2 APTT 35.9 H Sodium 147 H Potassium 3.7 Chloride 111 H Carbon Dioxide 28.7 Anion Gap 7 BUN 34 H Creatinine 1.81 H Estimated GFR 32 L Random Glucose 95 Calcium 7.8 L Result Diagrams: 06/18/18 01:05 06/20/18 04:24 Imaging: ITS Impressions Chest X-Ray 06/17/18 16:03 CONCLUSION: No acute cardiopulmonary disease. Venous Doppler Study 06/17/18 16:04 CONCLUSION: 1. Concerning for nonocclusive thrombus in the distal SFV bilaterally. Exam is somewhat limited due to the patient's inability to cooperate. 2. Occlusive thrombus in the right popliteal vein and peroneal. 3. Borderline prominent 1.8 cm lymph node in the right iliac chain is likely reactive with a clear fatty hilum Hip X-Ray 06/17/18 16:13 CONCLUSION: No definite bony fracture or joint dislocation is demonstrated. Patient is scheduled for CT abdomen/pelvis which can further help evaluate this area. Abdomen/Pelvis CT 06/17/18 16:54 CONCLUSION: 1. Large, 7.2 x 8.3 cm septated predominantly cystic mass lesion in the head of the pancreas is unchanged over multiple prior studies. This has been worked up in the past. 2. Stable prominence of the CBD with stable debris/sludge dependent portion of the gallbladder. 3. Bilateral hydronephrosis, unchanged. 4. Mild diverticular disease of the sigmoid colon without diverticulitis. 5. Large amount stool in the rectal vault. Assessment and Plan - Assessment (1) Bilateral hydronephrosis Code(s): N13.30 - Unspecified hydronephrosis Status: Acute - Plan Urologic impression: 1. Chronic bilateral hydronephrosis likely related to bladder dysfunction 2. 4.8 cm simple right renal cyst Recommendations: 1. Maintain Crowe catheter to gravity drainage 2. Patient will require further outpatient workup to include urodynamics and cystoscopy 3. Please arrange follow-up at my office after hospital discharge [phone].
[2018-06-21 07:12] LABS: INR 1.1 Ratio
[2018-06-21] MEDS: hydrALAZINE 25 MG Tablet PO SCH ×3 (09:33→17:18)
[2018-06-21] MEDS: amLODIPine 10 MG Tablet PO SCH (09:33)
[2018-06-21] MEDS: Carvedilol 6.25 MG Tablet PO SCH (09:33)
[2018-06-21] MEDS: Senna/Docusate Sodium 8.6/50 MG Tablet PO SCH (09:33)
[2018-06-21] MEDS: Sodium Chloride 0.9% 2 ML Flush BID IV.FLUSH SCH (09:34)
[2018-06-21] MEDS: Lactic Acid (Ammonium Lactate) 12% Lotion 225 GM Bottle TOPICAL SCH (09:34)
[2018-06-21] MEDS: Polyethylene Glycol 3350 17 GM Packet PO SCH (09:34)
--- NOTE | 2018-06-21 11:52 | P.DS ---
Date of admission: 06/17/18 20:23 Primary care physician: Annalise Slaughter MD Brief History from admission: This is an 82-year-old female with a PMH of HTN, h/o GI Bleed and CHF (Unknown EF) who was brought to the ER by EMS for c/o abdominal pain. Pt poor historian , but tells me she feels fine except for pain in her feet. States she normally uses a walker, but hasn't walked "in weeks". Per Daughter, pt lives at home with pt's son, believes pt has had prolonged bed rest for the last 1-2wks. On arrival, BP 203/84, HR 73, O2 sat 100% on RA. WBC 11.4. INR 1.1. Creatinine 2.26, previously 1.81 on 01/16/2018. U/a w/ UTI. CXR with no acute findings. Doppler E with bilateral DVTs. CT Abdomen/Pelvis with large septated cystic mass lesion in the head of the pancreas, unchanged over multiple studies, worked up in the past, stable prominence of CBD, bilateral hydronephrosis unchanged. S/p Rocephin IV, currently on Heparin gtt. Denies abdominal pain at this time. DS: Medications - Discharge Medications Prescriptions: amlodipine 2.5 mg PO DAILY #30 tab apixaban See Label Instructions .ROUTE .COMPLEX #60 tab carvedilol [Coreg] 6.25 mg PO BID #60 tab hydralazine 25 mg PO TID #90 tab polyethylene glycol 3350 17 gm PO DAILY #30 ea DS: Summary Hospital Course: Patient was admitted, started on heparin drip. Under the advice of hematology, patient was switched to low-dose Eliquis given her renal impairment and age and history of GI bleed. Nephrology also followed the patient, her acute kidney injury improved, renal function returned to chronic baseline impairment. Patient has met maximal benefit from hospitalization is clinically stable for discharge to home with home health with family support (patient adamantly refused custodial facility). - Time Spent with Patient Total time spent providing and/or coordinating discharge services: Less than 30 minutes - Quality: VTE Deep Vein Thrombosis/Pulmonary Embolism Present on Admission: Yes Exam Vital signs: Vital Signs 06/20/18 12:00 06/20/18 16:00 06/20/18 20:00 Temperature 97.7 F 98.2 F 97.8 F Pulse Rate 56 L 77 69 Respiratory Rate 18 18 16 Blood Pressure 185/71 H 168/78 H 157/66 H Pulse Oximetry 95 98 06/20/18 23:44 06/21/18 04:00 06/21/18 08:00 Temperature 98.2 F 98 F 97.3 F L Pulse Rate 63 67 58 L Respiratory Rate 14 17 18 Blood Pressure 137/65 148/64 H 144/79 H Pulse Oximetry 97 100 Intake & Output 06/20/18 06/21/18 06/21/18 18:59 06:59 18:59 Intake Total 500 / 500 Output Total 550 / 550 Balance -50 / -50 Intake: Oral 500 / 500 Output: Urine Amount (Catheter) 550 / 550 Indwelling Urethral Catheter 550 / 550 Other: Date of Last Bowel Movement 06/20/18 Narrative: Mild bilateral lower extremity edema which appears to have been chronic Heart sounds regular rate rhythm, no murmurs Clear lungs bilaterally, unlabored breathing Awake alert, no acute distress Results Procedures completed during hospitalization: . Labs on day of discharge: Labs from last 24 hours 06/21/18 06:24 PT 11.0 INR 1.1 - Impressions ITS Impressions Chest X-Ray 06/17/18 16:03 CONCLUSION: No acute cardiopulmonary disease. Venous Doppler Study 06/17/18 16:04 CONCLUSION: 1. Concerning for nonocclusive thrombus in the distal SFV bilaterally. Exam is somewhat limited due to the patient's inability to cooperate. 2. Occlusive thrombus in the right popliteal vein and peroneal. 3. Borderline prominent 1.8 cm lymph node in the right iliac chain is likely reactive with a clear fatty hilum Hip X-Ray 06/17/18 16:13 CONCLUSION: No definite bony fracture or joint dislocation is demonstrated. Patient is scheduled for CT abdomen/pelvis which can further help evaluate this area. Abdomen/Pelvis CT 06/17/18 16:54 CONCLUSION: 1. Large, 7.2 x 8.3 cm septated predominantly cystic mass lesion in the head of the pancreas is unchanged over multiple prior studies. This has been worked up in the past. 2. Stable prominence of the CBD with stable debris/sludge dependent portion of the gallbladder. 3. Bilateral hydronephrosis, unchanged. 4. Mild diverticular disease of the sigmoid colon without diverticulitis. 5. Large amount stool in the rectal vault. Discharge Plan - Discharge Disposition Patient Disposition: W/Home Health Service - Discharge Condition Condition: Stable - Discharge Order Discharge Orders: Discharge Order (Routine); Ordered 06/21/18 Ordered By: Claude Toro - Physicians Team Primary Care Provider: Annalise Slaughter Attending Provider: Claude Toro Other Providers: Kodi Mariee ; Marleen Mccloud ; Nirmala Ramey MD ; Izaiah Fair MD
--- NOTE | 2018-06-21 12:05 | P.PNNP ---
Subjective Interval history: In good spirits. No acute events overnight. Denies any shortness of breath, chest pain, nausea, or vomiting. No new labs today. Has been seen by urology. <Valeria Rivero - Last Filed: 06/21/18 11:50> Physical Exam Vital signs: Vital Signs 06/20/18 12:00 06/20/18 16:00 06/20/18 20:00 Temperature 97.7 F 98.2 F 97.8 F Pulse Rate 56 L 77 69 Respiratory Rate 18 18 16 Blood Pressure 185/71 H 168/78 H 157/66 H Pulse Oximetry 95 98 06/20/18 23:44 06/21/18 04:00 06/21/18 08:00 Temperature 98.2 F 98 F 97.3 F L Pulse Rate 63 67 58 L Respiratory Rate 14 17 18 Blood Pressure 137/65 148/64 H 144/79 H Pulse Oximetry 97 100 Intake & Output 06/20/18 06/21/18 06/21/18 18:59 06:59 18:59 Intake Total 500 / 500 Output Total 550 / 550 Balance -50 / -50 Intake: Oral 500 / 500 Output: Urine Amount (Catheter) 550 / 550 Indwelling Urethral Catheter 550 / 550 Other: Date of Last Bowel Movement 06/20/18 Narrative: GENERAL:Awake and alert. Pleasantly confused. SKIN: Warm and dry. CARDIOVASCULAR: Bradycardic. No murmur auscultated. RESPIRATORY: No accessory muscle use. Clear to auscultation. Breath sounds equal bilaterally. GASTROINTESTINAL: Abdomen soft, non-tender, nondistended. +BS. GENITOURINARY: Crowe catheter in place with clear yellow urine in bag. MUSCULOSKELETAL: Extremities without clubbing or cyanosis. +Bilateral lower extremity edema, improving. NEUROLOGICAL: Able to move all extremities spontaneously. Normal speech. - Urinary Catheter Management Indwelling Urethral Catheter Cath placed during this visit: yes Reason for continuing: Hourly intake/output Insertion date: 06/17/18 Insertion time: 16:45 <Valeria Rivero - Last Filed: 06/21/18 11:50> - Urinary Catheter Management Indwelling Urethral Catheter Cath placed during this visit: no <Nirmala Ramey - Last Filed: 06/23/18 18:05> Assessment and Plan - Assessment (1) ABIOLA (acute kidney injury) Code(s): N17.9 - Acute kidney failure, unspecified Status: Acute (2) UTI (urinary tract infection) Code(s): N39.0 - Urinary tract infection, site not specified Status: Acute (3) DVT (deep venous thrombosis) Code(s): I82.409 - Acute embolism and thrombosis of unspecified deep veins of unspecified lower extremity Status: Acute - Plan ABIOLA possible prerenal from poor intake and diuretic use. Has chronic kidney disease with a baseline creatinine of 1.8 - 2.0. 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 Creatinine yesterday at baseline at 1.8 no new labs today. Ct of abdomen with bilateral hydronephrosis which is unchanged. Urology consulted and will have patient follow up outpatient. Has indwelling Crowe catheter with good urinary output. Recommend to continue to hold lasix can be restarted at later date if needed, per family patient only was started per primary care for increased bilateral lower extremity edema which has now being treated for DVT. Lisinopril has also been on hold recommend to continue to hold can be restarted at later date. From a nephrology stand point patient is cleared for discharge. Recommend for patient with follow up with nephrology outpatient as she has advanced chronic kidney and approaching stage 4. <Valeria Rivero - Last Filed: 06/21/18 11:50> - Assessment (1) ABIOLA (acute kidney injury) Code(s): N17.9 - Acute kidney failure, unspecified Status: Acute (2) UTI (urinary tract infection) Code(s): N39.0 - Urinary tract infection, site not specified Status: Acute (3) DVT (deep venous thrombosis) Code(s): I82.409 - Acute embolism and thrombosis of unspecified deep veins of unspecified lower extremity Status: Acute - Plan Patient seen and examine, agree with above. Has chronic kidney disease and develop ABIOLA. Lisinopril is on hold. Creatinine is stable, 1.8 now. <Nirmala Ramey - Last Filed: 06/23/18 18:05>
[2018-06-21 18:58] VITALS: BP 99/54; PULSE 77; RESP 19; TEMP 97.3; O2SAT 95
== END 2018-06-21 20:17 | disposition home health service (06) ==
LOC: NEPE 15:04 → NEDA 20:23 → NEPGCP 22:25 → NEDH 06-18 10:14 → NEPGCP 06-18 10:15 → N04 06-20 16:50
PROVIDERS: ADMIT Hospitalist; ATTEND Hospitalist